=== PATIENT | female | born 1975 | race Caucasian/White ===

== ENCOUNTER → 2021-03-03 08:49 | Outpatient (BNVA) | payer MEDICAID, SELFPAY | PROVIDERS: PCP Nurse Practitioner; Visit Provider Nurse Practitioner Family | DX: Z12.11 Encounter for screening for malignant neoplasm of colon (principal); K59.01 Slow transit constipation; G40.909 Epilepsy, unspecified, not intractable, without status epilepticus | CPT/HCPCS: 99202 ==

== ENCOUNTER 2021-03-23 08:24 | Outpatient (REF) | payer MEDICAID, SELFPAY ==
--- NOTE | ~2021-03-23 | MM_ITS ---
EXAMINATION: MM SCREENING DIGITAL BREAST TOMOSYNTHESIS, BILATERAL CLINICAL INFORMATION: Screening. Asymptomatic. 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 The lifetime risk of breast cancer based on the Tyrer-Cuzick Model is 12%. COMPARISON: Mammography: 03/01/2020, 12/03/2018, 11/23/2018, 12/05/2017, 10/10/2016, 10/06/2015 TECHNIQUE: Digital breast tomosynthesis is performed in both the craniocaudal and mediolateral oblique views along with computer-aided detection (CAD). Synthesized 2D images are generated from the tomosynthesis. FINDINGS: There are scattered areas of fibroglandular density (ACR BI-RADS breast composition Category b). Breast tissue composition borders on heterogeneously dense. There are no significant masses, abnormal calcifications, or other abnormalities. Parenchymal pattern is similar to prior studies. There is a biopsy proven fibroadenoma again seen upper outer quadrant left breast. There are scattered bilateral parenchymal asymmetries. No developing density. The skin contours are smooth. MM/MM tomosynthesis screening BI IMPRESSION: No mammographic evidence of malignancy. ASSESSMENT: BI-RADS 2: Benign RECOMMENDATION: Routine annual mammography screening. This patient's information was entered into a reminder system with a target due date for their next mammogram.
== END 2021-03-23 08:25 | disposition home or self-care (01) ==
LOC: HO.MAMMO 08:24
PROVIDERS: Visit Provider Nurse Practitioner
DX: Z12.31 Encounter for screening mammogram for malignant neoplasm of breast (principal)
CPT/HCPCS: 77063; 77067

== ENCOUNTER 2021-04-25 06:31 | Day surgery (SDC) | payer MEDICAID, SELFPAY ==
[2021-04-20 10:28] VITALS: BMI 22.7
[2021-04-25 07:00] LABS: Urine Pregnancy NEGATIVE (NEGATIVE)
[2021-04-25 07:01] LABS: UPreg QC Valid YES
[2021-04-25 07:29] VITALS: BP 128/72; PULSE 72; RESP 20; TEMP 36.3; O2SAT 99
--- NOTE | 2021-04-25 08:28 | HO.ANESPROP2 ---
HPI - Anesthesia Eval Consult details Narrative: hx of seizures well controlled on keppra/lamictal - last dose this am [facility] Past Medical History Medical History Constipation Non-refractory epilepsy Vitamin D deficiency Family History Family History (Updated 03/03/21 @ 09:01 by Love Hernandez CMA) Father Heart muscle disorder caused by another medical condition Family history of problems with anesthesia: No Surgical History Surgical History History of appendectomy History of lumpectomy of right breast Hx of cholecystectomy History of Problems with Anesthesia: No Social History Social History (Updated 03/03/21 @ 09:02 by Love Hernandez CMA) Alcohol intake: never Patient Tobacco Use Status: Never used Tobacco Use of substances other than those prescribed or required for medical reasons: No Are you DNR?: No Advance Directives: No Advance Directives Information Provided: Yes Meds Allergies Allergy/AdvReac Type Severity Reaction Status Date / Time divalproex sodium AdvReac adverse Verified 03/02/21 12:02 reaction Home Medications Medication Instructions Recorded Confirmed Last Taken Type cholecalciferol (vitamin D3) 50 50 mcg PO DAILY 03/02/21 Unknown History mcg (2,000 unit) capsule diclofenac sodium 1 % topical gel 2 g TOPICAL QID 03/02/21 Unknown History (Voltaren Arthritis Pain) ibuprofen 200 mg tablet 200 mg PO Q6H PRN 03/02/21 Unknown History levetiracetam 250 mg tablet 250 mg PO BID 03/02/21 04/25/21 06:00 History (Keppra) multivitamin 1 tab PO DAILY 03/02/21 Unknown History polyethylene glycol 3350 17 17 g PO DAILY 03/02/21 Unknown History gram/dose oral powder (Miralax) lamotrigine 100 mg tablet 100 mg PO DAILY 03/03/21 04/25/21 06:00 History Exam Exam Date and Time: April 25, 2021 0828 Height,Weight and Vital Signs: Height 5 ft 7 in Weight 145 lb Last Vital Signs Temp 97.4 F 04/25/21 07:29 Pulse 72 04/25/21 07:29 Resp 20 04/25/21 07:29 BP 128/72 04/25/21 07:29 Pulse Ox 99 04/25/21 07:29 Pertinent Lab Results Pertinent Lab Results: Laboratory Tests 04/25/21 06:47 Urine Test NEGATIVE Assessment and Plan Assessment Anesthesia Assessment: Anesthesia Plan Discussed and Chart Reviewed Final Anesthetic Review Family History of Problems with Anesthesia: No History of Problems with Anesthesia: No NPO: Yes ASA Class: II Final Preanesthetic Review: No Changes in Pt Med Stat, Meds/Allgs Chart Reviewed, Consent Obtained/Reviewed and Anes Risks/Benef Reviewed Patient Risk: Low Procedure Risk: Low Anesthetic Plan Anesthetic Plan: MAC: Disposition: Standard PACU
[2021-04-25] MEDS: Lactated Ringers 1,000 ML 50 ML IVCONT (08:39)
--- NOTE | 2021-04-25 08:57 | MHC.SHP ---
Pre-Procedural Eval Section A Date of Service: 04/25/21 The patient is an INPATIENT: No The History & Physical has been completed within 30 days and I have reviewed it.: No Section B Chief Complaint: Screening Details of Present Illness: Colon cancer screening Relevant Family History (Specify if Yes): No Relevant Social History: None Present Medications: see Short Stay Collaborative assessment Medical History: Significant History (Constipation Non-refractory epilepsy Vitamin D deficiency) History of Previous Operations: Relevant previous surgery/procedure and date(s) (History of appendectomy History of lumpectomy of right breast Hx of cholecystectomy) Allergies: Allergies Allergy/AdvReac Type Severity Reaction Status Date / Time divalproex sodium AdvReac adverse Verified 03/02/21 12:02 reaction Review of Systems Sugical H&P ROS: Negative: Constitution, Cardiovascular and Respiratory and Yes, Specify: Gastrointestinal (constipation) Exam Surgical H&P Exam: Normal: Heart, Normal: Lungs, Normal: Extremities and Normal: Abdomen Plan Diagnosis/Plan: Unchanged I have reviewed the history and physical and performed a pertinent physical examination on my patient. No changes have occurred unless specified.
--- NOTE | 2021-04-25 09:37 | PM.OP ---
Brief Operative Note Date of Service: 04/25/21 Pre-op diagnosis: Colon cancer screening Post-op diagnosis: other (Colon polyp, anal wart) Procedure: COLONOSCOPY TILL CECUM WITH SNARE POLYPECTOMY AND HEMOCLIP PLACEMENT Consent: Indications for the procedure and potential complications of bleeding, perforation, reaction to medications and missed diagnosis were discussed with the patient and informed consent was obtained. Instrument: Olympus PCF H 190 L variable stiffness pediatric colonoscope Monitoring: Vital signs and clinical assessment, intermittent blood pressure monitoring, continuous EKG monitoring, Pulse oximetry and Carbon Dioxide monitoring were done throughout the procedure. Colon withdrawl time was 20 minutes. Procedure: The patient was placed in the left lateral decubitis position and pre-procedure medications were administered. After a digital rectal examination of the ano-rectum, the video colonoscope was inserted into the rectum and advanced through the colon to the cecum. The colonoscope was slowly withdrawn in a retrograde panoramic fashion and the colon mucosa was carefully examined including a retroflexed view of the rectum. Findings and interventions are described below. Procedure Difficulty: Without difficulty Findings: Terminal Ileum: Not evaluated Cecum: Normal Ascending Colon: Normal Transverse Colon: Normal Descending Colon: Normal Sigmoid Colon: A 2.0 to 2.5 cms sessile polyp at 20 cms removed with a hot snare and a hemoclip placed at polypectomy site. Rectum: Normal Ano-rectum: Perianal warts noted on inspection of the anus Colon preparation: Excellent Impression and Post Procedure Diagnosis: Colonoscopy Findings: One large polyp removed Perianal warts noted on inspection of the anus Plan: Await pathology results Patient has an appointment on 07/10/20 in the GI Clinic with Mela Bean FNP-BC . Repeat Colonoscopy interval based on path results - in 1 years if polyp is adenomatous and 10 years if polyps are hyperplastic. Above findings were reviewed with the patient and colon polyps and Genital Warts handouts were given in the discharge area. Patient will be referred to Dr Smith (general surgery) for management of Perianal warts Surgeon: Efraín Garcia MD Anesthesia: MAC (Joelle Saucedo CRNA) Was an Learning And Development Specialist used for this Procedure?: Yes Learning And Development Specialist: Anne Marie Gomez Estimated blood loss (mL): 0 Pathology: other (A. SIGMOID POLYP) Condition: stable Disposition: PACU
[2021-04-25 09:38] VITALS: BP 92/49; PULSE 66; RESP 12; TEMP 36.3; O2SAT 100
--- NOTE | 2021-04-25 09:41 | P.OP_ITS ---
Operative Note Operative Note Date of Service: 04/25/21 Narrative: Pre-op diagnosis:?Colon cancer screening Post-op diagnosis:?other (Colon polyp, anal wart) Procedure:? COLONOSCOPY TILL CECUM WITH SNARE POLYPECTOMY AND HEMOCLIP PLACEMENT Consent: Indications for the procedure and potential complications of bleeding, perforation, reaction to medications and missed diagnosis were discussed with the patient and informed consent was obtained. Instrument: Olympus PCF H 190 L variable stiffness pediatric colonoscope Monitoring: Vital signs and clinical assessment, intermittent blood pressure monitoring, continuous EKG monitoring, Pulse oximetry and Carbon Dioxide monitoring were done throughout the procedure. Colon withdrawl time was 20 minutes. Procedure: The patient was placed in the left lateral decubitis position and pre-procedure medications were administered. After a digital rectal examination of the ano-rectum, the video colonoscope was inserted into the rectum and advanced through the colon to the cecum. The colonoscope was slowly withdrawn in a retrograde panoramic fashion and the colon mucosa was carefully examined including a retroflexed view of the rectum. Findings and interventions are described below. Procedure Difficulty: Without difficulty Findings: Terminal Ileum: Not evaluated Cecum:? Normal Ascending Colon:? Normal Transverse Colon:? Normal Descending Colon:? Normal Sigmoid Colon:? A 2.0 to 2.5 cms sessile polyp at 20 cms removed with a hot snare and a hemoclip placed at polypectomy site. Rectum:? Normal Ano-rectum:? Perianal warts noted on inspection of the anus Colon preparation: Excellent ? Impression and Post Procedure Diagnosis: Colonoscopy Findings: One large polyp removed Perianal warts noted on inspection of the anus Plan: Await pathology results Patient has an appointment on 07/10/20 in the GI Clinic with Mela Bean FNP- . Repeat Colonoscopy interval based on path results - in 1 years if polyp is adenomatous and 10 years if polyps are hyperplastic. Above findings were reviewed with the patient and colon polyps and Genital Warts handouts were given in the discharge area. Patient will be referred to Dr Smith (general surgery) for management of Perianal warts Surgeon:?Efraín Garcia MD Anesthesia:?MAC (Joelle Saucedo CRNA) Was an Refinery Superintendent used for this Procedure?:?Yes Refinery Superintendent:?Anne Marie Gomez Estimated blood loss (mL):?0 Pathology:?other (A. SIGMOID POLYP) Condition:?stable Disposition:?PACU
[2021-04-25 09:54] VITALS: BP 101/56; PULSE 69; RESP 16; TEMP 36.3; O2SAT 100
== END 2021-04-25 10:25 | disposition home or self-care (01) ==
PROVIDERS: PCP Nurse Practitioner; Visit Provider Internal Medicine Gastroenterology
PROC: 0DJD8ZZ Inspection of Lower Intestinal Tract, Via Natural or Artificial Opening Endoscopic (ICD-10-PCS; CPT 45378; principal; 2021-04-25 08:30)
DX: Z12.11 Encounter for screening for malignant neoplasm of colon (principal); D12.5 Benign neoplasm of sigmoid colon; A63.0 Anogenital (venereal) warts; K59.01 Slow transit constipation; G40.909 Epilepsy, unspecified, not intractable, without status epilepticus; E55.9 Vitamin D deficiency, unspecified; Z79.899 Other long term (current) drug therapy; Z88.8 Allergy status to other drugs, medicaments and biological substances; Z90.49 Acquired absence of other specified parts of digestive tract
CPT/HCPCS: 45385; 81025; 88305

== ENCOUNTER → 2021-05-09 07:52 | Outpatient (BNVA) | payer MEDICAID, SELFPAY | PROVIDERS: PCP Nurse Practitioner; Referring Provider Nurse Practitioner; Visit Provider Nurse Practitioner Family | DX: K59.01 Slow transit constipation (principal); A63.0 Anogenital (venereal) warts; Z98.890 Other specified postprocedural states | CPT/HCPCS: 99212 ==

== ENCOUNTER → 2021-07-06 14:14 | Outpatient (BNVA) | payer MEDICAID, SELFPAY | PROVIDERS: PCP Nurse Practitioner; Referring Provider Nurse Practitioner Family; Visit Provider Surgery | DX: K62.9 Disease of anus and rectum, unspecified (principal) | CPT/HCPCS: 46600; 99202 ==

== ENCOUNTER 2021-08-08 07:46 | Day surgery (SDC) | payer MEDICAID, SELFPAY ==
[2021-08-03 10:27] VITALS: BMI 22.6
[2021-08-08] VITALS (7 sets, daily range): BP systolic 116–139; BP diastolic 67–80; PULSE 62–101; RESP 12–16; TEMP 36.2–36.3; O2SAT 98–100
[2021-08-08 08:15] LABS: UPreg QC Valid YES; Urine Pregnancy NEGATIVE (NEGATIVE)
[2021-08-08] MEDS: Lactated Ringers 1,000 ML 50 ML IVCONT (08:32)
--- NOTE | 2021-08-08 08:39 | P.CONAN_ITS ---
FORM[facility]LY [facility] Active Problems Active Problems: All Active Problems (Updated 08/03/21 @ 10:27 by Lamar Leong RN) Perianal wart (Acute) Anal lesion (Acute) Past Medical History Medical History Anal lesion Constipation COVID-19 vaccine series completed Non-refractory epilepsy Vitamin D deficiency Family History Family History Father Heart muscle disorder caused by another medical condition Family history of problems with anesthesia: No Surgical History Surgical History History of appendectomy History of lumpectomy of right breast Hx of cholecystectomy Hx of colonoscopy History of Problems with Anesthesia: No Social History Social History Alcohol intake: never Patient Tobacco Use Status: Never used Tobacco Use of substances other than those prescribed or required for medical reasons: No Have you been hit, kicked, punched, or otherwise hurt by someone within the past year? If so, by whom?: No Are you DNR?: No Advance Directives: No Advance Directives Information Provided: Yes (brochure mailed) Advance Directives on File: No Recently lost weight without trying: No Eating poorly because of decreased appetite: No Nutrition Risks: No Nutritional Risk Meds Allergies Allergy/AdvReac Type Severity Reaction Status Date / Time divalproex sodium AdvReac adverse Verified 07/06/21 14:35 reaction Home Medications Medication Instructions Recorded Confirmed Last Taken Type cholecalciferol (vitamin D3) 50 50 mcg PO DAILY 03/02/21 08/03/21 Unknown History mcg (2,000 unit) capsule diclofenac sodium 1 % topical gel 2 g TOPICAL QID 03/02/21 08/03/21 Unknown History (Voltaren Arthritis Pain) ibuprofen 200 mg tablet 200 mg PO Q6H PRN 03/02/21 08/03/21 Unknown History levetiracetam 250 mg tablet 250 mg PO BID 03/02/21 08/03/21 08/08/21 History (Keppra) multivitamin 1 tab PO DAILY 03/02/21 08/03/21 Unknown History lamotrigine 100 mg tablet 100 mg PO DAILY 03/03/21 08/03/21 08/08/21 History Exam Exam Date and Time: August 08, 2021 0839 Height,Weight and Vital Signs: Height 5 ft 7 in Weight 65.487 kg Last Vital Signs Temp 97.4 F 08/08/21 08:14 Pulse 80 08/08/21 08:14 Resp 16 08/08/21 08:14 BP 123/79 08/08/21 08:14 Pulse Ox 98 08/08/21 08:14 Pertinent Lab Results Pertinent Lab Results: Laboratory Tests 08/08/21 07:56 Urine Test NEGATIVE Airway Mallampati Class: II TM Dist: >3cm Neck ROM: Full Loose/Missing/Broken Teeth: No Heart: RRR Lungs: CTA Assessment and Plan Assessment Anesthesia Assessment: Anesthesia Plan Discussed and Chart Reviewed Final Anesthetic Review Family History of Problems with Anesthesia: No History of Problems with Anesthesia: No NPO: Yes ASA Class: II Final Preanesthetic Review: Meds/Allgs Chart Reviewed, Consent Obtained/Reviewed and Anes Risks/Benef Reviewed Patient Risk: Low Procedure Risk: Intermediate Anesthetic Plan Anesthetic Plan: GA Disposition: Standard PACU
--- NOTE | 2021-08-08 09:35 | P.OP_ITS ---
Operative Note Operative Note Date of Service: 08/08/21 Narrative: Preop diagnosis: Anal lesion Postop diagnosis: anal lesion Procedure: Exam under anesthesia, excision of anal lesion Surgeon: Elvin Smith MD The patient is a 46-year-old female was referred to me because of an anal lesion. She she was seen in the office as was noted have a polyp polypoid, lobulated, verrucous looking lesion, about 1.5 cm, just proximal to the anal verge. I explained to her the technique of anesthesia, and excision of this lesion. She understood the risks, benefits, and alternatives and had agreed to proceed She was brought the operating room. She was placed in prone michele-knife po sition. The buttocks were retracted with wide tape laterally. The perianal area was prepped and draped in the usual sterile fashion. A surgical time-out was done. The patient received Cefotan 2 g IV preoperatively . Examination of the anal orifice revealed the lesion on the left side just proximal to the anal verge has described above. I infiltrated this area with lidocaine 1%. I inserted a Jayce Awad retractor. I examined the anal canal circumferentially. There were no lesions in the anal canal. There was no fissure or any induration. There was no bleeding. I gently applied a Mcneal grasper on the lesion at the left anal verge. I applied a [id number] stitch proximal to this in the anal canal using a chromic 3-0. I made an incision around this lesion using blade 15. All the way to the perianal skin. Excise this lesion along this incision above the plane of sphincters using scissors. This was sent as a specimen. I closed the incision with a running chromic 3-0 stitch with additional hemostatic sutures placed Once hemostasis was ensured, I infiltrated the perianal area with Marcaine 0.5% for postop analgesia. The procedure was then completed. The patient tolerated the procedure well. There were no complications noted. Initial and final counts of sponges instruments were correct. Estimated blood loss about 10 cc . The patient was then extubated and transferred to the recovery room with stable vital signs.
== END 2021-08-08 11:30 | disposition home or self-care (01) ==
PROVIDERS: PCP Nurse Practitioner; Visit Provider Surgery
PROC: (CPT 46922; principal; 2021-08-08 09:30)
DX: D01.3 Carcinoma in situ of anus and anal canal (principal); G40.802 Other epilepsy, not intractable, without status epilepticus; K59.00 Constipation, unspecified; E55.9 Vitamin D deficiency, unspecified; Z79.899 Other long term (current) drug therapy; Z88.8 Allergy status to other drugs, medicaments and biological substances; Z90.49 Acquired absence of other specified parts of digestive tract; Z98.890 Other specified postprocedural states
CPT/HCPCS: 46922; 81025; 88305; 88342; 88360; J1100; J1885; J2250; J2405; J3010

== ENCOUNTER → 2021-08-21 11:36 | Outpatient (BNVA) | payer MEDICAID, SELFPAY | PROVIDERS: PCP Nurse Practitioner; Referring Provider Nurse Practitioner; Visit Provider Surgery | DX: Z48.815 Encounter for surgical aftercare following surgery on the digestive system (principal); Z87.19 Personal history of other diseases of the digestive system | CPT/HCPCS: 99212 ==

== ENCOUNTER → 2021-11-07 08:21 | Outpatient (BNVA) | payer MEDICAID, SELFPAY | PROVIDERS: PCP Nurse Practitioner; Referring Provider Nurse Practitioner; Visit Provider Nurse Practitioner Family | DX: K59.01 Slow transit constipation (principal) | CPT/HCPCS: 99212 ==

== ENCOUNTER → 2022-02-19 12:48 | Outpatient (BNVA) | payer MEDICAID, SELFPAY | PROVIDERS: PCP Nurse Practitioner; Visit Provider Surgery | DX: D01.3 Carcinoma in situ of anus and anal canal (principal) | CPT/HCPCS: 46600; 99212 ==

== ENCOUNTER 2022-03-29 08:10 | Outpatient (REF) | payer MEDICAID, SELFPAY ==
--- NOTE | ~2022-03-29 | MM_ITS ---
EXAMINATION: MM SCREENING DIGITAL BREAST TOMOSYNTHESIS, BILATERAL CLINICAL INFORMATION: Screening. Asymptomatic. The lifetime risk of breast cancer based on the Tyrer-Cuzick Model is 13.2%. COMPARISON: Mammography: March 23, 2021 and studies dating back to October 06, 2015 TECHNIQUE: Digital breast tomosynthesis is performed in both the craniocaudal and mediolateral oblique views along with computer-aided detection (CAD). Synthesized 2D images are generated from the tomosynthesis. FINDINGS: There are scattered areas of fibroglandular density (ACR BI-RADS breast composition Category b). There are no significant masses, abnormal calcifications, or other abnormalities. MM/MM tomosynthesis screening BI IMPRESSION: No significant changes from prior exam. ASSESSMENT: BI-RADS 1: Negative RECOMMENDATION: Routine annual mammography screening. This patient's information was entered into a reminder system with a target due date for their next mammogram.
== END 2022-03-29 08:11 | disposition home or self-care (01) ==
LOC: HO.MAMMO 08:10
PROVIDERS: PCP Nurse Practitioner; Visit Provider Nurse Practitioner
DX: Z12.31 Encounter for screening mammogram for malignant neoplasm of breast (principal)
CPT/HCPCS: 77063; 77067

== ENCOUNTER → 2022-08-20 14:02 | Outpatient (BNVA) | payer MEDICAID, SELFPAY | PROVIDERS: Visit Provider Surgery | DX: D01.3 Carcinoma in situ of anus and anal canal (principal) | CPT/HCPCS: 46600; 99212 ==

== ENCOUNTER 2022-11-29 08:16 | Outpatient (AMB) | payer MEDICAID, SELFPAY ==
--- NOTE | 2022-11-29 08:23 | A.OFFVIS_ITS ---
Intake Vital Signs 11/29/22 08:24 Height 5 ft 7 in Weight 142 lb 13.753 oz BMI 22.4 BP 131/71 Blood Pressure Location Lt brachial Position Sitting Pulse 76 Intake Visit Reasons: 1 Year Follow Up Intake Note: Ria presents in office as a est.patient for a 1year f/u for constipation PT CC: pt reports having ULQP pt denies any other GI Issues Financial Planning Advisor Required: No Accompanied by: Self / Same As Patient Allergies divalproex sodium Adverse Reaction (Verified 11/29/22 08:23) adverse reaction HPI 1 Year Follow Up HPI Details LAST VISIT: Constipation Patient no longer is constipated. Patient reports that she changed her diet and is doing much better now. Stop taking Senokot she does not need any medication to help her move her bowels at this point. All diet controlled. Patient denies any other GI concerning symptoms. I will see her in 1 year to re-evaluate. Patient has been followed by General surgery after removal of perianal wart. Patient is agreeable to this plan and verbalizes understanding of instructions. She was given the opportunity to ask questions all questions answered. TODAY'S VISIT: Patient is here today for follow-up and to discuss going for colonoscopy. Last colonoscopy showed large two tubular adenomas. Patient denies any melena, hematochezia, unintentional weight loss or ribbon like stools. Patient has a history of seizures, however last seizure about 6 years ago. Patient is on lamotrigine and Keppra. Patient denies any cardiac or respiratory symptoms. Not on any anticoagulation medication. No history of sleep apnea. Did very well with anesthesia last procedure. No issues with prep. ? PFSH Medical History AIN grade III Anal lesion Constipation COVID-19 vaccine series completed Non-refractory epilepsy Vitamin D deficiency Surgical History History of appendectomy History of lumpectomy of right breast History of surgical removal of lesion Hx of cholecystectomy Hx of colonoscopy Family History Father Heart muscle disorder caused by another medical condition Social History Alcohol intake: never Patient Tobacco Use Status: Never used Tobacco Review of Systems Const Denies weight gain and Denies weight loss ENT Reports no additional complaints, Denies dysphagia and Denies odynophagia Card Reports no additional complaints Resp Reports no additional complaints GI Denies abdominal pain, Denies belching, Denies melena, Denies bloating, Denies change in bowel habits, Denies dysphagia, Denies excessive flatus, Denies dyspepsia, Denies heartburn, Denies diarrhea, Denies loose stools, Denies nausea, Denies odynophagia and Denies vomiting Musc Reports no additional complaints Neuro Reports no additional complaints Psych Reports no additional complaints Endo Reports no additional complaints Physical Exam Vital Signs: Last Vital Signs Pulse 76 11/29/22 08:24 BP 131/71 11/29/22 08:24 BMI result Body Mass Index 22.4 Const General: healthy appearing, no acute distress and well developed Nutritional Appearance: well nourished Orientation/consciousness: patient oriented x3 HEENT Head: Yes normal to inspection, Yes normocephalic and Yes atraumatic Face and sinus: Yes normal facial exam Mouth: Normal oral and palatal mucosa present Throat: Yes posterior oropharynx normal, Yes tonsils normal and Yes uvula midline Eyes General: appearance normal, both eyes and all related structures Neck Neck: Yes normal visual inspection, Yes full ROM and Yes trachea midline Thyroid: Thyroid normal Resp Effort & Inspection: normal respiratory effort, able to speak in complete sentences, no tracheal deviation and symmetric chest movement Auscultation: clear to auscultation bilaterally Cardio Rate: regular rate Heart sounds: S1 normal heart sound present and S2 normal heart sound present GI Inspection: Yes normal to inspection and No distended Palpation (GI): Soft to palpation, not firm, nontender and No hepatosplenomegaly present Auscultation: normal bowel sounds General: Yes no CVA tenderness Back/Spine/Pelvis Back: no CVA tenderness Skin General skin exam: elasticity normal, turgor normal and dry skin Neuro General: patient oriented x3 Psych Appearance: grossly normal Mental Status: mental status grossly normal Speech and movement: Normal speech and movement present Affect: normal affect Thought process: Normal thought process present Assessment & Plan Assessment & Plan (1) Constipation: Code(s): K59.00 - Constipation, unspecified Qualifiers: Constipation type: slow transit constipation Qualified Code(s): K59.01 - Slow transit constipation Plan: Patient change her diet and is moving her bowels without any issues. Continue drinking plenty fluids, increase activity to promote a bowel movement. (2) Screen for colon cancer: Code(s): Z12.11 - Encounter for screening for malignant neoplasm of colon Plan: History of tubular adenoma on colonoscopy in May of 2021. Patient denies any melena, hematochezia, unintentional weight loss stools patient denies any history of sleep apnea. Not on any anticoagulation medication. Patient denies any cardiac or respiratory symptoms. No seizures. Last seizure was in 2016. Patient is taking lamotrigine and Keppra. Please make sure that patient is taking her seizure medication today of the procedure. Discussed with patient the importance of good bowel prep and clear liquid diet day before procedure. What to expect before during and after procedure discussed with patient. I will see her after the procedure, sooner on as needed basis. Patient is agreeable to this plan and verbalizes understanding of instructions. She was given the opportunity to ask questions all questions answered. Thank you for allowing me to participate in her care Medications: New bisacodyl (Dulcolax (bisacodyl)) take 2 tabs at noon the day before your colonoscopy 10 mg (2 x 5 mg) PO ONCE 2 tabs 0RF 1 day Z12.11 - Encounter for screening for malignant neoplasm of colon polyethylene glycol 3350 (Miralax) As directed by gastroenterology department at [facility] 238 grams PO ONCE 238 grams 0RF Z12.11 - Encounter for screening for malignant neoplasm of colon Coding Level of Care Code Est Pt Level 3 (05301) Diagnoses Constipation K59.01 Constipation type: slow transit constipation Screen for colon cancer Z12.11 Time Spent (min) 30 Comment 20 minutes spent with patient and additional 10 minutes spent reviewing her records
[2022-11-29 08:24] VITALS: BP 131/71; PULSE 76; BMI 22.4
== END 2022-11-29 09:49 | disposition home or self-care (01) ==
PROVIDERS: Visit Provider Nurse Practitioner Family
DX: K59.01 Slow transit constipation (principal); Z12.11 Encounter for screening for malignant neoplasm of colon
CPT/HCPCS: 99213

== ENCOUNTER → 2022-11-29 08:16 | Outpatient (BNVA) | payer MEDICAID, SELFPAY | PROVIDERS: Visit Provider Nurse Practitioner Family | DX: Z12.11 Encounter for screening for malignant neoplasm of colon (principal); K59.01 Slow transit constipation | CPT/HCPCS: 99213 ==

== ENCOUNTER 2023-01-28 12:43 | Outpatient (REF) | payer MEDICAID, SELFPAY ==
[2023-01-28 15:56] LABS: MANUAL DIFF FLAG NO
[2023-01-28 16:07] LABS: Basophils Percent Auto 0.6 % (0-2); Eosinophils Absolute Auto 0.1 X10*3/uL (0.0-0.4); Eosinophils Percent Auto 1.3 % (0-4); Hematocrit 34.1 % (37.0-47.0); Hemoglobin 10.5 g/dl (12.0-16.0); Imm Gran Abs Auto 0.02 X10*3/uL (0.00-0.03); Imm Gran Pct Auto 0.3 % (0.0-0.4); Lymphocytes Percent Auto 13.8 % (20-40); Mean Corpuscular HGB Conc 30.8 g/dl (31.0-35.0); Mean Corpuscular Volume 77.9 fL (80.0-98.0); Mean Platelet Volume 11.4 fL (9.4-12.3); Monocytes Absolute Auto 0.4 X10*3/uL (0.1-1.2); Neutrophils Absolute Auto 5.6 x10*3/uL (2.0-8.3); Platelet Count 287 X10*3/uL (160-400); Red Blood Count 4.38 X10*6/uL (4.20-5.50); Red Cell Distribution Width 14.9 % (11.0-16.0); White Blood Count 7.2 X10*3/uL (4.8-10.8)
[2023-01-28 16:13] LABS: Estimated Average Glucose 108 mg/dL; Hemoglobin A1c % 5.4 % (<6.0)
[2023-01-28 16:33] LABS: Alanine Aminotransferase 8 U/L (0-31); Albumin Level 4.1 g/dL (3.5-5.0); Alkaline Phosphatase 49 U/L (39-117); Anion Gap 9 (12-20); Aspartate Amino Transferase 11 U/L (5-31); Bilirubin Total 0.8 mg/dL (0.0-1.0); Blood Urea Nitrogen 11 mg/dL (9-16); Calcium 9.6 mg/dL (8.4-10.2); Carbon Dioxide 24 mmol/L (22-29); Chloride 109 mmol/L (96-108); Cholesterol 158 mg/dL (<200); Estimated Glomerular Filt Rate > 60; Glucose Random 95 mg/dL (60-115); HDL Cholesterol 46 mg/dL (>40); LDL Cholesterol Calculated 97 mg/dL (<100); Potassium 3.8 mmol/L (3.3-5.1); Sodium 138 mmol/L (135-145); Total Protein 7.5 g/dL (6.5-8.0); Triglycerides 79 mg/dL (<150)
[2023-01-28 16:50] LABS: TSH reflex Free T4 1.35 uIU/mL (0.32-4.0); Vitamin D 25-OH Total 32.8 ng/mL (>30)
[2023-01-28 18:48] LABS: CT PCR NOT DETECTED (Not Detect.); NG PCR NOT DETECTED (Not Detect.)
[2023-01-29 04:16] LABS: Syphilis Screen Nonreactive (Nonreactive)
[2023-01-29 04:21] LABS: ~HepC Num1 0.24 S/CO (0.00-0.79); ~Hepatitis C Antibody Nonreactive (Nonreactive)
[2023-01-29 04:30] LABS: HBS Num1 0.96 mIU/mL (0-7.99); HBc Num1 0.15 S/CO (0.00-0.79); HBsAGNum1 0.41 S/CO (0.00-0.99); HIV AB/AG Nonreactive (Nonreactive); HIV Num 1 0.07 S/CO (0.00-0.99); Hepatitis B Core Antibody Nonreactive (Nonreactive); Hepatitis B Surface Antigen Negative (Negative); ~Hepatitis B Surface Antibody NONREACTIVE (Nonreactive)
[2023-01-29 11:40] LABS: Iron 37 mcg/dL (30-160); Percent Iron Saturation 9 % (15-50); Total Iron Binding Capacity 395 mcg/dL (228-428); Unsaturated Iron Binding 358 ug/dL
[2023-01-29 11:59] LABS: Ferritin 7 ng/mL (10-250)
[2023-01-29 12:12] LABS: Folate 11.1 ng/mL (> or = 4.0); Vitamin B12 424 pg/mL (200-900)
== END 2023-01-28 12:44 | disposition home or self-care (01) ==
LOC: HO.HHCL 12:43
PROVIDERS: Visit Provider Student in an Organized Health Care Education/Training Program
DX: Z00.00 Encounter for general adult medical examination without abnormal findings (principal); D64.9 Anemia, unspecified
CPT/HCPCS: 0353U; 80053; 80061; 82306; 82607; 82728; 82746; 83036; 83540; 84443; 85025; 86704; 86706; 86780; 86803; 87340; 87389

== ENCOUNTER 2023-02-01 10:46 | Day surgery (SDC) | payer MEDICAID, SELFPAY ==
[2023-01-30 14:29] VITALS: BMI 22.2
[2023-02-01 11:59] VITALS: BP 114/95; PULSE 84; RESP 16; TEMP 36.4; O2SAT 100; BMI 22.6
--- NOTE | 2023-02-01 12:12 | MHC.SHP ---
Documented by User: Efraín Garcia MD 02/01/23 16:21 Pre-Procedural Eval Section A Date of Service: 02/01/23 The patient is an INPATIENT: No The History & Physical has been completed within 30 days and I have reviewed it.: No Section B Chief Complaint: Benign neoplasm of colon, unspecified Relevant Family History (Specify if Yes): No Relevant Social History: None Present Medications: see Short Stay Collaborative assessment Medical History: Significant History (AIN grade III Anal lesion Constipation COVID-19 vaccine series completed Non-refractory epilepsy Vitamin D deficiency) History of Previous Operations: Relevant previous surgery/procedure and date(s) (History of appendectomy History of lumpectomy of right breast History of surgical removal of lesion Hx of cholecystectomy Hx of colonoscopy) Allergies: Allergies Allergy/AdvReac Type Severity Reaction Status Date / Time divalproex sodium AdvReac Unknown Verified 02/01/23 11:44 Review of Systems Sugical H&P ROS: Negative: Constitution, Cardiovascular, Respiratory and Gastrointestinal Exam Surgical H&P Exam: Normal: Heart, Normal: Lungs, Normal: Extremities and Normal: Abdomen Plan Diagnosis/Plan: Unchanged I have reviewed the history and physical and performed a pertinent physical examination on my patient. No changes have occurred unless specified. Time Spent With Patient Time: Total time managing care of this patient today ____ minutes. Documented by User: Maryse Hernandez MD 02/01/23 12:34 Pre-Procedural Eval Section A Date of Service: 02/01/23 Section B Chief Complaint: Benign neoplasm of colon, unspecified
[2023-02-01] MEDS: Lactated Ringers 1,000 ML 50 ML IVCONT (12:14)
--- NOTE | 2023-02-01 12:20 | HO.ANESPROP2 ---
HPI - Anesthesia Eval Consult details Narrative: for colon screen [facility] Active Problems Active Problems: All Active Problems (Updated 02/19/22 @ 13:04 by Elvin Smith MD) Perianal wart (Acute) AIN grade III (Acute) Anal lesion (Acute) Past Medical History Medical History AIN grade III Anal lesion Constipation COVID-19 vaccine series completed Non-refractory epilepsy Vitamin D deficiency Family History Family History Father Heart muscle disorder caused by another medical condition Family history of problems with anesthesia: No Surgical History Surgical History History of appendectomy History of lumpectomy of right breast History of surgical removal of lesion Hx of cholecystectomy Hx of colonoscopy Tubal ligation status History of Problems with Anesthesia: No Social History Social History Alcohol intake: never Patient Tobacco Use Status: Never used Tobacco Use of substances other than those prescribed or required for medical reasons: No Are you DNR?: No Advance Directives: No Advance Directives Information Provided: Yes Meds Allergies Allergy/AdvReac Type Severity Reaction Status Date / Time divalproex sodium AdvReac Unknown Verified 02/01/23 11:44 Active Medications: Current Medications Lactated Ringer's (Lr) 1,000 mls @ 50 mls/hr IVCONT .Q20H NIURKA Last Admin: 02/01/23 12:14 Dose: 50 mls/hr Home Medications Medication Instructions Recorded Confirmed Last Taken Type cholecalciferol (vitamin D3) 50 50 mcg PO DAILY 03/02/21 02/01/23 Unknown History mcg (2,000 unit) capsule ibuprofen 200 mg tablet 200 mg PO Q6H PRN Pain 03/02/21 02/01/23 12/01/22 History levetiracetam 250 mg tablet 250 mg PO BID 03/02/21 02/01/23 02/01/23 History (Keppra) multivitamin 1 tab PO DAILY 03/02/21 02/01/23 Unknown History lamotrigine 100 mg tablet 100 mg PO DAILY 03/03/21 02/01/23 02/01/23 History Exam Exam Date and Time: February 01, 2023 1220 Height,Weight and Vital Signs: Height 5 ft 7 in Weight 65.317 kg Last Vital Signs Temp 97.5 F 02/01/23 11:59 Pulse 84 02/01/23 11:59 Resp 16 02/01/23 11:59 BP 114/95 H 02/01/23 11:59 Pulse Ox 100 02/01/23 11:59 O2 Del Method Room Air 02/01/23 11:59 Airway Mallampati Class: II Neck ROM: Full Heart: rrr Lungs: cta Assessment and Plan Assessment Anesthesia Assessment: Anesthesia Plan Discussed and Chart Reviewed Final Anesthetic Review Family History of Problems with Anesthesia: No History of Problems with Anesthesia: No NPO: Yes ASA Class: II Final Preanesthetic Review: No Changes in Pt Med Stat, Meds/Allgs Chart Reviewed, Consent Obtained/Reviewed and Anes Risks/Benef Reviewed Patient Risk: Low Procedure Risk: Low Anesthetic Plan Anesthetic Plan: MAC: Disposition: Standard PACU
--- NOTE | 2023-02-01 12:34 | HO.ANESPROP2 ---
[facility] Active Problems Active Problems: All Active Problems (Updated 02/19/22 @ 13:04 by Elvin Smith MD) Perianal wart (Acute) AIN grade III (Acute) Anal lesion (Acute) Past Medical History Medical History AIN grade III Anal lesion Constipation COVID-19 vaccine series completed Non-refractory epilepsy Vitamin D deficiency Family History Family History Father Heart muscle disorder caused by another medical condition Family history of problems with anesthesia: No Surgical History Surgical History History of appendectomy History of lumpectomy of right breast History of surgical removal of lesion Hx of cholecystectomy Hx of colonoscopy Tubal ligation status History of Problems with Anesthesia: No Social History Social History Alcohol intake: never Patient Tobacco Use Status: Never used Tobacco Use of substances other than those prescribed or required for medical reasons: No Are you DNR?: No Advance Directives: No Advance Directives Information Provided: Yes Meds Allergies Allergy/AdvReac Type Severity Reaction Status Date / Time divalproex sodium AdvReac Unknown Verified 02/01/23 11:44 Active Medications: Current Medications Lactated Ringer's (Lr) 1,000 mls @ 50 mls/hr IVCONT .Q20H NIURKA Last Admin: 02/01/23 12:14 Dose: 50 mls/hr Home Medications Medication Instructions Recorded Confirmed Last Taken Type cholecalciferol (vitamin D3) 50 50 mcg PO DAILY 03/02/21 02/01/23 Unknown History mcg (2,000 unit) capsule ibuprofen 200 mg tablet 200 mg PO Q6H PRN Pain 03/02/21 02/01/23 12/01/22 History levetiracetam 250 mg tablet 250 mg PO BID 03/02/21 02/01/23 02/01/23 History (Keppra) multivitamin 1 tab PO DAILY 03/02/21 02/01/23 Unknown History lamotrigine 100 mg tablet 100 mg PO DAILY 03/03/21 02/01/23 02/01/23 History Exam Exam Date and Time: February 01, 2023 1234 Height,Weight and Vital Signs: Height 5 ft 7 in Weight 65.317 kg Last Vital Signs Temp 97.5 F 02/01/23 11:59 Pulse 84 02/01/23 11:59 Resp 16 02/01/23 11:59 BP 114/95 H 02/01/23 11:59 Pulse Ox 100 02/01/23 11:59 O2 Del Method Room Air 02/01/23 11:59 Airway Mallampati Class: II TM Dist: >3cm Neck ROM: Full Heart: rrr Lungs: cta Assessment and Plan Assessment Anesthesia Assessment: Anesthesia Plan Discussed and Chart Reviewed Final Anesthetic Review Family History of Problems with Anesthesia: No History of Problems with Anesthesia: No NPO: Yes ASA Class: II Final Preanesthetic Review: No Changes in Pt Med Stat, Meds/Allgs Chart Reviewed and Consent Obtained/Reviewed Patient Risk: Intermediate Procedure Risk: Intermediate Anesthetic Plan Anesthetic Plan: MAC: Disposition: Standard PACU
--- NOTE | 2023-02-01 13:38 | W.PM.OPN ---
Operative Note Operative Note Date of Service: 02/01/23 Narrative: COLONOSCOPY TILL CECUM Pre-op diagnosis: Surveillance for colon polyps Post-op diagnosis:? Diverticulosis, hemorrhoids Endoscopist:? Efraín Garcia MD Anesthesia:?MAC Consent: Indications for the procedure and potential complications of bleeding, perforation, reaction to medications and missed diagnosis were discussed with the patient and informed consent was obtained. Instrument: Olympus PCF H 190 L variable stiffness pediatric colonoscope Monitoring: Vital signs and clinical assessment, intermittent blood pressure monitoring, continuous EKG monitoring, Pulse oximetry and Carbon Dioxide monitoring were done throughout the procedure. Please see anesthesia flowsheet. Colon withdrawl time was 13 minutes. Procedure: The patient was placed in the left lateral decubitis position and pre-procedure medications were administered. After a digital rectal examination of the ano-rectum, the video colonoscope was inserted into the rectum and advanced through the colon to the cecum. The colonoscope was slowly withdrawn in a retrograde panoramic fashion and the colon mucosa was carefully examined including a retroflexed view of the rectum. Findings and interventions are described below. Procedure Difficulty: Colon was long and there was some loop formation Findings: Terminal Ileum: Not evaluated Cecum: Normal Ascending Colon: Normal Transverse Colon: Normal Descending Colon: Normal Sigmoid Colon: No recurrent or residual polyp noted at 20 cms. Moderate diverticulosis Rectum: Normal Ano-rectum: Moderate internal hemorrhoids Colon preparation: Excellent Impression and Post Procedure Diagnosis: Colonoscopy Findings: No polyps were detected Moderate diverticulosis seen in the sigmoid colon Moderate hemorrhoids on retroflexed exam. Plan: Patient has an appointment on 02/13/23 in the GI Clinic with Mela Bean FNP-BC . Repeat Colonoscopy in 5 years due to a history of adenomatous colon polyps. Above findings were reviewed with the patient and diverticulosis handout was given in the discharge area
[2023-02-01 14:09] VITALS: BP 101/60; PULSE 61; RESP 12; TEMP 36.6; O2SAT 100
[2023-02-01 14:24] VITALS: BP 108/66; PULSE 75; RESP 16; O2SAT 100
[2023-02-01 14:38] VITALS: BP 115/71; PULSE 61; RESP 18; TEMP 36.7; O2SAT 100
== END 2023-02-01 15:05 | disposition home or self-care (01) ==
PROVIDERS: PCP Student in an Organized Health Care Education/Training Program; Visit Provider Internal Medicine Gastroenterology
PROC: 0DJD8ZZ Inspection of Lower Intestinal Tract, Via Natural or Artificial Opening Endoscopic (ICD-10-PCS; CPT 45378; principal; 2023-02-01 12:50)
DX: Z12.11 Encounter for screening for malignant neoplasm of colon (principal); K57.30 Diverticulosis of large intestine without perforation or abscess without bleeding; K64.8 Other hemorrhoids; Z86.010 Personal history of colon polyps; K59.00 Constipation, unspecified; G40.909 Epilepsy, unspecified, not intractable, without status epilepticus; Z79.899 Other long term (current) drug therapy
CPT/HCPCS: 45378

== ENCOUNTER → 2023-02-01 10:46 | Outpatient (BNV) | payer MEDICAID, SELFPAY | PROVIDERS: PCP Student in an Organized Health Care Education/Training Program; Visit Provider Internal Medicine Gastroenterology | DX: Z12.11 Encounter for screening for malignant neoplasm of colon (principal); K57.30 Diverticulosis of large intestine without perforation or abscess without bleeding; K64.8 Other hemorrhoids | CPT/HCPCS: 45378 ==

== ENCOUNTER 2023-02-13 09:09 | Outpatient (AMB) | payer MEDICAID, SELFPAY ==
--- NOTE | 2023-02-13 09:22 | A.OFFVIS_ITS ---
Intake Vital Signs 02/13/23 09:26 Height 5 ft 7 in Weight 144 lb BMI 22.6 BP 127/74 Blood Pressure Location Lt brachial Position Sitting Pulse 93 Intake Visit Reasons: s/p colon-Jose Intake Note: Patient follow up for Colonoscopy results. Patient denies any GI issues. 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 Continue drinking plenty fluids, increase activity to promote a bowel movement. Screen for colon cancer History of tubular adenoma on colonoscopy in May of 2021. Patient denies any melena, hematochezia, unintentional weight loss stools patient denies any history of sleep apnea. Not on any anticoagulation medication. Patient denies any cardiac or respiratory symptoms. No seizures. Last seizure was in 2016. Patient is taking lamotrigine and Keppra. Please make sure that patient is taking her seizure medication today of the procedure. Discussed with patient the importance of good bowel prep and clear liquid diet day before procedure. What to expect before during and after procedure discussed with patient. I will see her after the procedure, sooner on as needed basis. Patient is agreeable to this plan and verbalizes understanding of instructions. She was given the opportunity to ask questions all questions answered. COLONOSCOPY: Findings: Terminal Ileum: Not evaluated Cecum: Normal Ascending Colon: Normal Transverse Colon: Normal Descending Colon: Normal Sigmoid Colon: No recurrent or residual polyp noted at 20 cms. Moderate diverticulosis Rectum: Normal Ano-rectum: Moderate internal hemorrhoids Colon preparation: Excellent Impression and Post Procedure Diagnosis: Colonoscopy Findings: No polyps were detected Moderate diverticulosis seen in the sigmoid colon Moderate hemorrhoids on retroflexed exam. Plan: Repeat Colonoscopy in 5 years due to a history of adenomatous colon polyps. TODAY'S VISIT Patient is here today for follow-up and to discuss colonoscopy results. No polyps found. Moderate diverticulosis to sigmoid colon. Patient denies any ill effects from the prep, anesthesia or procedure itself. Patient denies any GI concerning symptoms. Patient reports that she is moving her bowels better now that she is taking MiraLax daily. Patient denies melena, hematochezia, unintentional weight loss or ribbon like stools. Patient denies dyspepsia, dysphagia or odynophagia ? [facility] Medical History (Updated 02/13/23 @ 10:08 by Mela Bean, [facility]) Diverticulosis AIN grade III COVID-19 vaccine series completed Anal lesion Constipation Vitamin D deficiency Non-refractory epilepsy Surgical History Tubal ligation status History of surgical removal of lesion Hx of colonoscopy History of lumpectomy of right breast History of appendectomy Hx of cholecystectomy Family History Father Heart muscle disorder caused by another medical condition Social History Alcohol intake: never Patient Tobacco Use Status: Never used Tobacco Review of Systems Const Denies weight gain and Denies weight loss ENT Reports no additional complaints, Denies dysphagia and Denies odynophagia Card Reports no additional complaints Resp Reports no additional complaints GI Denies abdominal pain, Denies belching, Denies melena, Denies bloating, Denies change in bowel habits, Denies dysphagia, Denies excessive flatus, Denies dyspepsia, Denies heartburn, Denies diarrhea, Denies loose stools, Denies nausea, Denies odynophagia and Denies vomiting Musc Reports no additional complaints Neuro Reports no additional complaints Psych Reports no additional complaints Endo Reports no additional complaints Physical Exam Vital Signs: Last Vital Signs Pulse 93 02/13/23 09:26 BP 127/74 02/13/23 09:26 BMI result Body Mass Index 22.6 Const General: healthy appearing, no acute distress and well developed Nutritional Appearance: well nourished Orientation/consciousness: patient oriented x3 HEENT Head: Yes normal to inspection, Yes normocephalic and Yes atraumatic Face and sinus: Yes normal facial exam Mouth: Normal oral and palatal mucosa present Throat: Yes posterior oropharynx normal, Yes tonsils normal and Yes uvula midline Eyes General: appearance normal, both eyes and all related structures Neck Neck: Yes normal visual inspection, Yes full ROM and Yes trachea midline Thyroid: Thyroid normal Resp Effort & Inspection: normal respiratory effort, able to speak in complete sentences, no tracheal deviation and symmetric chest movement Auscultation: clear to auscultation bilaterally Cardio Rate: regular rate Heart sounds: S1 normal heart sound present and S2 normal heart sound present GI Inspection: Yes normal to inspection and No distended Palpation (GI): Soft to palpation, not firm, nontender and No hepatosplenomegaly present Auscultation: normal bowel sounds General: Yes no CVA tenderness Back/Spine/Pelvis Back: no CVA tenderness Skin General skin exam: elasticity normal, turgor normal and dry skin Neuro General: patient oriented x3 Psych Appearance: grossly normal Mental Status: mental status grossly normal Assessment & Plan Assessment & Plan (1) Diverticulosis: Code(s): K57.90 - Diverticulosis of intestine, part unspecified, without perforation or abscess without bleeding Plan: Moderate diverticulosis found in sigmoid colon. Patient was encouraged to inc rease fiber in her diet, increase fluid intake and activity to promote better bowel movement (2) Status post colonoscopy: Code(s): Z98.890 - Other specified postprocedural states Plan: Patient denies any ill effects from the prep, anesthesia or procedure itself. Patient denies any GI concerning symptoms. No polyps found. Colonoscopy will be repeated in 5 years due to previous history of tubular adenoma. Patient will follow-up with us on as-needed basis. She is agreeable to this plan and verbalizes understanding of instructions. She was given the opportunity to ask questions and all questions answered. Thank you for allowing me to participate in her care Coding Level of Care Code Est Pt Level 3 (59736) Diagnoses Diverticulosis K57.90 Status post colonoscopy Z98.890 Time Spent (min) 25 Comment 15 minutes spent with patient and additional 10 minutes spent reviewing his records
[2023-02-13 09:26] VITALS: BP 127/74; PULSE 93; BMI 22.6
== END 2023-02-13 09:44 | disposition home or self-care (01) ==
PROVIDERS: Visit Provider Nurse Practitioner Family
DX: K57.90 Diverticulosis of intestine, part unspecified, without perforation or abscess without bleeding (principal); Z98.890 Other specified postprocedural states
CPT/HCPCS: 99213

== ENCOUNTER → 2023-02-13 09:09 | Outpatient (BNVA) | payer MEDICAID, SELFPAY | PROVIDERS: Visit Provider Nurse Practitioner Family | DX: K57.90 Diverticulosis of intestine, part unspecified, without perforation or abscess without bleeding (principal); Z98.890 Other specified postprocedural states | CPT/HCPCS: 99212 ==

== ENCOUNTER 2023-03-29 13:01 | Outpatient (REF) | payer MEDICAID, SELFPAY ==
--- NOTE | ~2023-03-29 | US_ITS ---
EXAMINATION: US PELVIS CLINICAL INFORMATION: Menorrhagia, last menstrual period 03/29/2023. COMPARISON: None available. TECHNIQUE: Ultrasound of the pelvis is performed using both transabdominal and transvaginal transducers along with Doppler. Transvaginal imaging is performed due to inadequate visualization transabdominally. FINDINGS: The uterus is retroflexed, heterogeneous and measures 7.9 x 5.4 x 6.8 cm. Endometrial thickness is 0.8 cm. Endometrium appears echogenic and heterogeneous. Right uterine 2.2 x 1.8 x 1.9 cm heterogeneous mass characteristic of a fibroid. A 1.8 x 1.5 x 1.8 cm heterogeneous mass abutting the endometrium on the left characteristic of a submucosal fibroid. A 1.4 x 1.3 x 1.5 cm left fibroid. Right ovary measures 2.7 x 1.4 x 1.5 cm, volume 2.97 mL. Left ovary measures 3.7 x 2.6 x 1.8 cm, volume 9.07 mL. Bilateral ovaries are unremarkable. No significant free fluid. US/US pelvic and transvaginal IMPRESSION: 1. Multiple uterine masses characteristic of fibroids. 2. Endometrial double wall thickness of 0.8 cm. 3. Bilateral ovaries are unremarkable.
== END 2023-03-29 13:02 | disposition home or self-care (01) ==
LOC: HO.US 13:01
PROVIDERS: Visit Provider Student in an Organized Health Care Education/Training Program
DX: N92.0 Excessive and frequent menstruation with regular cycle (principal)
CPT/HCPCS: 76830; 76856

== ENCOUNTER 2023-04-01 07:47 | Outpatient (REF) | payer MEDICAID, SELFPAY ==
--- NOTE | ~2023-04-01 | MM_ITS ---
EXAMINATION: MM SCREENING DIGITAL BREAST TOMOSYNTHESIS, BILATERAL CLINICAL INFORMATION: Screening. Asymptomatic. COMPARISON: Mammography: This study is compared with prior exams dating back to 2019. TECHNIQUE: Digital breast tomosynthesis is performed in both the craniocaudal and mediolateral oblique views along with computer-aided detection (CAD). Synthesized 2D images are generated from the tomosynthesis. FINDINGS: There are scattered areas of fibroglandular density (ACR BI-RADS breast composition Category b). There are no significant masses, abnormal calcifications, or other abnormalities. There is unknown, oval, well-circumscribed, benign mass in the upper outer quadrant of the left breast. It contains a biopsy tissue marker. MM/MM tomosynthesis screening BI IMPRESSION: No mammographic evidence of malignancy. ASSESSMENT: BI-RADS BI-RADS 2 - Benign Findings RECOMMENDATION: Routine annual mammography screening. 1 year F/U This examination should not preclude the clinical evaluation of a suspicious palpable abnormality. This patient's information was entered into a reminder system with a target due date for their next mammogram.
== END 2023-04-01 07:48 | disposition home or self-care (01) ==
LOC: HO.MAMMO 07:47
PROVIDERS: PCP Student in an Organized Health Care Education/Training Program; Visit Provider Nurse Practitioner
DX: Z12.31 Encounter for screening mammogram for malignant neoplasm of breast (principal)
CPT/HCPCS: 77063; 77067

== ENCOUNTER → 2023-04-01 08:00 | Outpatient (BNV) | payer MEDICAID, SELFPAY | PROVIDERS: PCP Student in an Organized Health Care Education/Training Program; Visit Provider Radiology Diagnostic Radiology | DX: Z12.31 Encounter for screening mammogram for malignant neoplasm of breast (principal) | CPT/HCPCS: 77063; 77067 ==

== ENCOUNTER 2023-04-23 10:11 | Outpatient (REF) | payer MEDICAID, SELFPAY ==
[2023-04-23 11:16] LABS: MANUAL DIFF FLAG NO
[2023-04-23 11:25] LABS: Basophils Absolute Auto 0.1 X10*3/uL (0.0-0.2); Basophils Percent Auto 0.7 % (0-2); Eosinophils Absolute Auto 0.2 X10*3/uL (0.0-0.4); Hematocrit 40.4 % (37.0-47.0); Imm Gran Abs Auto 0.04 X10*3/uL (0.00-0.03); Imm Gran Pct Auto 0.5 % (0.0-0.4); Lymphocytes Absolute Auto 1.4 X10*3/uL (1.2-4.9); Lymphocytes Percent Auto 16.6 % (20-40); Mean Corpuscular HGB Conc 32.2 g/dl (31.0-35.0); Mean Corpuscular Hemoglobin 26.7 pg (27.0-33.0); Mean Platelet Volume 10.7 fL (9.4-12.3); Monocytes Absolute Auto 0.5 X10*3/uL (0.1-1.2); Monocytes Percent Auto 6.3 % (2-11); Neutrophils Absolute Auto 6.4 x10*3/uL (2.0-8.3); Neutrophils Percent Auto 73.9 % (45-73); Platelet Count 265 X10*3/uL (160-400); Red Blood Count 4.87 X10*6/uL (4.20-5.50); Red Cell Distribution Width 15.9 % (11.0-16.0); White Blood Count 8.6 X10*3/uL (4.8-10.8)
[2023-04-23 11:57] LABS: Iron 204 mcg/dL (30-160); Percent Iron Saturation 57 % (15-50); Total Iron Binding Capacity 355 mcg/dL (228-428); Unsaturated Iron Binding 151 ug/dL
[2023-04-23 12:00] LABS: Ferritin 23 ng/mL (10-250)
== END 2023-04-23 10:12 | disposition home or self-care (01) ==
LOC: HO.HHCL 10:11
PROVIDERS: Visit Provider Student in an Organized Health Care Education/Training Program
DX: D50.9 Iron deficiency anemia, unspecified (principal)
CPT/HCPCS: 36415; 82728; 83540; 85025

== ENCOUNTER 2023-05-09 14:29 | Outpatient (REF) | payer MEDICAID, SELFPAY ==
--- NOTE | ~2023-05-09 | MR_ITS ---
EXAMINATION: MR BRAIN WITHOUT CONTRAST CLINICAL INFORMATION: Epilepsy. Headaches. COMPARISON: None. TECHNIQUE: Multiplanar, multisequence imaging of the brain was performed without contrast. FINDINGS: No diffusion abnormalities are identified to suggest an acute infarct. The ventricles are normal in size. No mass effect or midline shift is seen. No brain parenchymal signal abnormality is noted. No extra-axial fluid collections are seen. The brainstem and cerebellum are normal. No focal cortical dysplasia or migrational abnormality is seen. The hippocampi are normal in appearance. Mild bilateral frontoparietal brain parenchymal volume loss noted. The gradient refocused acquisition is normal. The craniovertebral junction, marrow signal, and midline structures are normal. The major intracranial flow voids at the level of the [place] are preserved. The dural venous sinus flow voids are maintained. The mastoid air cells are well aerated. There is an incidental 1.3 cm proteinaceous retention cyst in the right maxillary antrum. MR/MR head/brain wo con IMPRESSION: No acute process. No hippocampal pathology. Mild bilateral frontoparietal brain parenchymal volume loss.
== END 2023-05-09 14:30 | disposition home or self-care (01) ==
LOC: HO.MRI 14:29
PROVIDERS: PCP Student in an Organized Health Care Education/Training Program; Visit Provider Psychiatry & Neurology Neurology
DX: G40.909 Epilepsy, unspecified, not intractable, without status epilepticus (principal)
CPT/HCPCS: 70551

== ENCOUNTER 2023-06-05 07:16 | Outpatient (AMB) | payer MEDICAID, SELFPAY ==
--- NOTE | 2023-06-05 07:32 | MHC.OFFVIS ---
Intake Vital Signs 06/05/23 07:37 Height 5 ft 7 in Weight 143 lb BMI 22.4 BP 116/70 Intake Visit Reasons: Fibroids/Follow up abnomal pap/PCP referral Fitter / Welder Required: Yes Fitter / Welder Language: Tsa Screener Name: Michaela GARZA Information Interpreted: non-clinical & clinical Crime Scene Specialist: Crime Scene Specialist Present (Michaela GARZA) Accompanied by: Self / Same As Patient Allergies divalproex sodium Adverse Reaction (Verified 06/05/23 07:38) Unknown Is last menstrual period known: Yes Last menstrual period: 05/27/23 HPI HPI Comments History of Present Illness Details Presenting referred from PCP regarding heavy menstrual cycle associated with passage of blood clots and pelvic cramping. Pelvic ultrasound done on 04/01/23 showed the following: The uterus is retroflexed, heterogeneous and measures 7.9 x 5.4 x 6.8 cm. Endometrial thickness is 0.8 cm. Endometrium appears echogenic and heterogeneous. Right uterine 2.2 x 1.8 x 1.9 cm heterogeneous mass characteristic of a fibroid. A 1.8 x 1.5 x 1.8 cm heterogeneous mass abutting the endometrium on the left characteristic of a submucosal fibroid. A 1.4 x 1.3 x 1.5 cm left fibroid. Right ovary measures 2.7 x 1.4 x 1.5 cm, volume 2.97 mL. Left ovary measures 3.7 x 2.6 x 1.8 cm, volume 9.07 mL. Bilateral ovaries are unremarkable. No significant free fluid. Last co testing was in 01/17 was ascus/HPV negative Last mammogram was done in 03/25 was BI-RADS 2 Last screening colonoscopy was done in 04/23 [facility] Medical History Diverticulosis AIN grade III COVID-19 vaccine series completed Anal lesion Constipation Vitamin D deficiency Non-refractory epilepsy Surgical History Tubal ligation status History of surgical removal of lesion Hx of colonoscopy History of lumpectomy of right breast History of appendectomy Hx of cholecystectomy Family History Father Heart muscle disorder caused by another medical condition Social History Household Members: Spouse and Children Housing: House Alcohol intake: never Patient Tobacco Use Status: Never used Tobacco Current occupational status: unemployed Sexual orientation: Straight/Heterosexual Gender identity: Female Female Reproductive History Menstrual Date of last menstrual period: 05/27/23 control method: permanent sterilization Total pregnancies: 3 Full term: 3 Number of Living Children: 3 Review of Systems Const All systems reviewed & are unremarkable except as noted in HPI and below Card Reports as per HPI Resp Reports as per HPI GI Reports as per HPI and Reports no additional complaints Reports as per HPI Physical Exam Const General: cooperative, healthy appearing and comfortable Chest Chest palpation & inspection: normal inspection of the chest and normal palpation of entire chest wall Breast/axilla inspection: normal inspection of the breasts and normal inspection of the axillae Breast/axilla palpation: normal palpation of the breasts, normal palpation of the axillae and no axillary lymphadenopathy Resp Effort & Inspection: normal respiratory effort Auscultation: clear to auscultation bilaterally Percussion: percussion normal Cardio Palpation: normal PMI Rate: regular rate Rhythm: regular rhythm Heart sounds: no murmurs and no rubs Peripheral pulses: Peripheral pulses 2+ throughout GI Inspection: Yes normal to inspection Palpation (GI): Soft to palpation, nontender, no guarding, not rigid and No hepatosplenomegaly present Percussion: Yes normal to percussion Auscultation: normal bowel sounds Rectal Exam - Female: deferred General: Yes bladder normal to palpation External Female Exam: No lesion Speculum Exam - Vagina: normal appearance of the vagina, normal palpation, normal vaginal discharge and not erythematous Speculum Exam - Cervix: normal appearance of the cervix and normal palpation Bimanual exam- vagina & uterus: normal bimanual exam, normal palpation, uterine size normal, bladder normal to palpation, consistency normal and normal palpation Bimanual Exam- Adnexa, other: normal adnexae, no masses and no tenderness Assessment & Plan Assessment & Plan (1) Abnormal uterine bleeding (AUB): Code(s): N93.9 - Abnormal uterine and vaginal bleeding, unspecified Plan: Co testing done, GC and chlamydia taken CBC, prolactin, FSH/LH, TSH, HCG ordered and pelvic ultrasound done on 04/01/2023. Discussed with the patient the different causes of abnormal bleeding including thyroid disorders, uterine and ovarian pathology, endometrial hyperplasia, carcinoma and other potential causes. Discussed with the patient the work up including CBC (to r/o anemia), TSH, pelvic Ultrasound, endometrial biopsy to r/o endometrial pathology. All questions answered and the patient verbalized understanding. Instructed the patient to schedule an appointment for an endometrial biopsy in 2 weeks. (2) Uterine myoma: Code(s): D25.9 - Leiomyoma of uterus, unspecified Plan: Discussed with the patient the results of the ultrasound and the size/location of the myomas . Discussed with the patient risk of myosarcoma and symptoms that are caused by myomas including but not limited to pelvic pain, pressure symptoms, abnormal uterine bleeding. In addition discussed with the patient options of treatment for myomas including: Serial ultrasounds periodically to follow-up on the size of the myoma while targeting the treatment against fibroids related symptoms ( control pills, Mirena IUD, progesterone treatment, GnRH agonist/antagonist, hysteroscopic myomectomy for the submucosal myoma, uterine artery embolization or endometrial ablation) versus surgical treatment including hysterectomy and or myomectomy. All pros and cons, risks and benefits of all options were discussed with the patient. Will check the results of the workup order and discuss further options of treatment with the patient peer Orders: Orders Complete Blood Count no Diff Today N93.9 - Abnormal uterine and vaginal bleeding, unspecified HCG Quantitative Today N93.9 - Abnormal uterine and vaginal bleeding, unspecified TSH reflex Free T4 Today N93.9 - Abnormal uterine and vaginal bleeding, unspecified Prolactin Today N93.9 - Abnormal uterine and vaginal bleeding, unspecified Follicle Stimulating Hormone Today N93.9 - Abnormal uterine and vaginal bleeding, unspecified Lutenizing Hormone Today N93.9 - Abnormal uterine and vaginal bleeding, unspecified Coding Level of Care Code New Pt Level 3 (72997) Diagnoses Abnormal uterine bleeding (AUB) N93.9 Uterine myoma D25.9
[2023-06-05 07:37] VITALS: BP 116/70; BMI 22.4
== END 2023-06-05 07:57 | disposition home or self-care (01) ==
PROVIDERS: PCP Student in an Organized Health Care Education/Training Program; Referring Provider Student in an Organized Health Care Education/Training Program; Visit Provider Obstetrics & Gynecology
DX: N93.9 Abnormal uterine and vaginal bleeding, unspecified (principal); D25.9 Leiomyoma of uterus, unspecified
CPT/HCPCS: 99203

== ENCOUNTER 2023-06-05 07:16 | Outpatient (REF) | payer MEDICAID, SELFPAY ==
[2023-06-05 08:41] LABS: Hematocrit 36.6 % (37.0-47.0); Hemoglobin 11.9 g/dl (12.0-16.0); Mean Corpuscular HGB Conc 32.5 g/dl (31.0-35.0); Mean Corpuscular Hemoglobin 27.1 pg (27.0-33.0); Mean Corpuscular Volume 83.4 fL (80.0-98.0); Mean Platelet Volume 9.9 fL (9.4-12.3); Platelet Count 211 X10*3/uL (160-400); Red Blood Count 4.39 X10*6/uL (4.20-5.50); Red Cell Distribution Width 13.2 % (11.0-16.0); White Blood Count 7.3 X10*3/uL (4.8-10.8)
[2023-06-05 10:28] LABS: HCG Quantitative < 2 mIU/mL; TSH reflex Free T4 1.69 uIU/mL (0.32-4.0)
[2023-06-07 04:05] LABS: Follicle Stimulating Hormone 5.5 mIU/mL; Lutenizing Hormone 5.6 mIU/mL; Prolactin 7.9 ng/mL
== END 2023-06-05 07:17 | disposition home or self-care (01) ==
LOC: HO.LAB 07:16
PROVIDERS: PCP Student in an Organized Health Care Education/Training Program; Visit Provider Obstetrics & Gynecology
DX: N93.9 Abnormal uterine and vaginal bleeding, unspecified (principal); D25.9 Leiomyoma of uterus, unspecified
CPT/HCPCS: 0353U; 83001; 83002; 84146; 84443; 84702; 85027; 87624; 88142; 99202

== ENCOUNTER 2023-07-16 07:14 | Outpatient (REF) | payer MEDICAID, SELFPAY | END 2023-07-16 07:15 | disposition home or self-care (01) | LOC: HO.LNP 07:14 | PROVIDERS: PCP Student in an Organized Health Care Education/Training Program; Visit Provider Obstetrics & Gynecology | DX: N93.9 Abnormal uterine and vaginal bleeding, unspecified (principal) | CPT/HCPCS: 58100; 81025; 88305 ==

== ENCOUNTER 2023-07-16 07:14 | Outpatient (AMB) | payer MEDICAID, SELFPAY ==
--- NOTE | 2023-07-16 07:29 | MHC.OFFVIS ---
Intake Vital Signs 07/16/23 07:30 Height 5 ft 7 in Weight 141 lb 1.533 oz BMI 22.1 BP 118/70 Intake Visit Reasons: EMB Studio Operator Required: No Information Interpreted: non-clinical & clinical Health Information Director: Health Information Director Present (Michaela Gentile KAYLA) Accompanied by: Self / Same As Patient Allergies divalproex sodium Adverse Reaction (Verified 07/16/23 07:42) Unknown HPI HPI Comments History of Present Illness Details Presenting for EMB [facility] Medical History Diverticulosis AIN grade III COVID-19 vaccine series completed Anal lesion Constipation Vitamin D deficiency Non-refractory epilepsy Surgical History Tubal ligation status History of surgical removal of lesion Hx of colonoscopy History of lumpectomy of right breast History of appendectomy Hx of cholecystectomy Family History Father Heart muscle disorder caused by another medical condition Social History Household Members: Spouse and Children Housing: House Alcohol intake: never Patient Tobacco Use Status: Never used Tobacco Current occupational status: unemployed Sexual orientation: Straight/Heterosexual Gender identity: Female Female Reproductive History Menstrual Date of last menstrual period: 06/26/23 Review of Systems Const All systems reviewed & are unremarkable except as noted in HPI and below Reports as per HPI and Reports no additional complaints GI Reports no additional complaints Reports no additional complaints Physical Exam Vital Signs: Last Vital Signs BP 118/70 07/16/23 07:30 BMI result Body Mass Index 22.1 Office Procedures Endometrial Biopsy Details: The patient was counseled regarding the indication and benefits of endometrial sampling to rule out endometrial pathology including not limited to endometrial hyperplasia or endometrial cancer and others; The alternatives (Either do nothing vs. hysteroscopy D&C) & the risks were discussed with the patient including but not limited: pain, uterine perforation, bleeding, infection, possible injury to bladder, bowel, ureter, possible need for blood transfusion with all its possible risks. The patient verbalized understanding all questions answered and signed consent. Urine test done in the office was negative The patient was placed into the dorsal lithotomy position; a speculum was inserted in the vagina. Using aseptic technique for the procedure, the cervix was cleansed with Betadine. The anterior lip of the cervix was grasped with a single tooth tenaculum. The uterus was sounded to 7 cm with a 4 mm Pipelle was used. Tissues samples were obtained and placed in formalin, in a patient labeled container and sent to the pathology department. At the end of the procedure, there was minimal bleeding noted The patient tolerated the procedure well and was discharged in good condition with the following instructions: Nothing in the vagina until the bleeding stops. No sex until the bleeding stops, to call if any of the following occurs: fever (>100.4), flu-like symptoms, abdominal pain, heavy bleeding, four smelling vaginal discharge. The patient was instructed to schedule a Follow up appointment in 2 weeks to discuss pathology results of the biopsy and treatment options. This note was generated with a voice recognition program. Some errors may have been overlooked during the review of this note. Sometimes these errors may affect the content or meaning of a given sentence. [id number] Biopsy Assessment & Plan Assessment & Plan (1) Abnormal uterine bleeding (AUB): Code(s): N93.9 - Abnormal uterine and vaginal bleeding, unspecified Plan: EMB done, see procedure note Orders: Orders AMB Endometrial Biopsy Today N93.9 - Abnormal uterine and vaginal bleeding, unspecified Coding Level of Care Code Procedure Only Diagnoses Abnormal uterine bleeding (AUB) N93.9 CPT Codes Endometrial Biopsy - CPT: 31834-[id number] Biopsy ([id number])
[2023-07-16 07:30] VITALS: BP 118/70; BMI 22.1
== END 2023-07-16 08:10 | disposition home or self-care (01) ==
PROVIDERS: PCP Student in an Organized Health Care Education/Training Program; Visit Provider Obstetrics & Gynecology
DX: N93.9 Abnormal uterine and vaginal bleeding, unspecified (principal); Z32.02 Encounter for pregnancy test, result negative
CPT/HCPCS: 58100

== ENCOUNTER 2023-08-21 08:40 | Outpatient (AMB) | payer MEDICAID, SELFPAY ==
--- NOTE | 2023-08-21 09:02 | MHC.OFFVIS ---
Intake Vital Signs 08/21/23 09:04 Height 5 ft 7 in Weight 156 lb 6 oz BMI 24.5 BP 151/70 H Blood Pressure Location Lt brachial Position Sitting Pulse 101 H Intake Visit Reasons: Anal carcinoma, 1 yr follow up Intake Note: Patient is seen in office for one year follow up visit, following anal carcinoma. Pt c/o: admits to constipation taking Senna with relief, denies any other concerns n/v/d Cartridge Loading Operator Required: No Accompanied by: Self / Same As Patient Allergies divalproex sodium Adverse Reaction (Verified 08/21/23 09:05) Unknown Medication List - Last Reconciled 08/21/23 by Elvin Smith MD ascorbate calcium (vitamin C) 500 mg PO DAILY ferrous sulfate 325 mg PO DAILY ibuprofen 600 mg PO Q6H PRN lamotrigine 100 mg PO DAILY levetiracetam (Keppra) 250 mg PO BID multivitamin 1 tab PO DAILY sennosides (Natural Senna Laxative) 8.6 mg PO BEDTIME HPI Anal carcinoma, 1 yr follow up HPI Details She is here for follow-up for her history of AIN 3. This was seen on a polypoid lesion removed 2 years ago. The margins were negative She denies any complaints at this time. She denies any problems with anal pain, or bleeding. [facility] Medical History Diverticulosis AIN grade III COVID-19 vaccine series completed Anal lesion Constipation Vitamin D deficiency Non-refractory epilepsy Surgical History Tubal ligation status History of surgical removal of lesion Hx of colonoscopy History of lumpectomy of right breast History of appendectomy Hx of cholecystectomy Family History Father Heart muscle disorder caused by another medical condition Social History Household Members: Spouse and Children Housing: House Alcohol intake: never Patient Tobacco Use Status: Never used Tobacco Current occupational status: unemployed Sexual orientation: Straight/Heterosexual Gender identity: Female Review of Systems Const Denies chills and Denies fever(s) Card Denies chest pain, Denies dyspnea and Denies dyspnea on exertion Resp Denies cough, Denies dyspnea and Denies dyspnea on exertion GI Denies hematochezia and Denies change in bowel habits Denies hematuria Musc Denies back pain and Denies limited range of motion Neuro Denies focal weakness and Denies convulsions Psych Denies depression and Denies mood swings Physical Exam Vital Signs: Last Vital Signs Pulse 101 H 08/21/23 09:04 BP 151/70 H 08/21/23 09:04 BMI result Body Mass Index 24.5 Const General: comfortable and no acute distress Orientation/consciousness: patient oriented x3 Neck Neck: Yes no lymphadenopathy Resp Auscultation: clear to auscultation bilaterally Cardio Rhythm: regular rhythm GI Other: She was in michele-knife position. The anoscope was gently inserted. A full examination of the anal canal was done. There were no lesions seen in the anal canal. There was no polyp or any induration or fissure. There was no induration on digital exam. There was no blood. 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 Follow-up syncope today does not reveal any new lesions or any recurrence. The anal canal appears unremarkable. I told her that if she notices any changes, she should come back to the office otherwise, I can see her next year and repeat the anoscopy. She says she understands and is comfortable with the plan. Coding Level of Care Code Est Pt Level 3 (67443) Diagnoses AIN grade III D01.3
[2023-08-21 09:04] VITALS: BP 151/70; PULSE 101; BMI 24.5
== END 2023-08-21 09:40 | disposition home or self-care (01) ==
PROVIDERS: PCP Student in an Organized Health Care Education/Training Program; Visit Provider Surgery
DX: D01.3 Carcinoma in situ of anus and anal canal (principal)
CPT/HCPCS: 99213

== ENCOUNTER → 2023-08-21 08:40 | Outpatient (BNVA) | payer MEDICAID, SELFPAY | PROVIDERS: PCP Student in an Organized Health Care Education/Training Program; Visit Provider Surgery | DX: D01.3 Carcinoma in situ of anus and anal canal (principal) | CPT/HCPCS: 99212 ==

== ENCOUNTER 2023-09-05 07:57 | Outpatient (AMB) | payer MEDICAID, SELFPAY ==
--- NOTE | 2023-09-05 07:58 | MHC.OFFVIS ---
Intake Vital Signs 09/05/23 08:00 Height 5 ft 7 in Weight 154 lb 5.177 oz BMI 24.2 BP 120/72 Intake Visit Reasons: EMB follow up/DO NOT RS Check Viewer Required: Yes Check Viewer Language: Renewable Energy Consultant Name: Michaela GARZA Information Interpreted: non-clinical & clinical Accompanied by: Self / Same As Patient Allergies divalproex sodium Adverse Reaction (Verified 09/05/23 08:02) Unknown Is last menstrual period known: Yes Last menstrual period: 08/23/23 HPI HPI Comments History of Present Illness Details The patient is presenting for follow-up to discuss the results of her abnormal uterine bleeding workup and options of treatment. The following workup was done.: H&H= 11.9/36.6 TSH, hCG, GC and chlamydia were negative. FSH/ LH in the premenopausal range Endometrial biopsy pathology showed early benign secretory endometrium with no evidence of hyperplasia and/or malignancy. Co testing was done was negative. Mammogram done in 03/25 was BI-RADS 2. Pelvic ultrasound showed the following: The uterus is retroflexed, heterogeneous and measures 7.9 x 5.4 x 6.8 cm. Endometrial thickness is 0.8 cm. Endometrium appears echogenic and heterogeneous. Right uterine 2.2 x 1.8 x 1.9 cm heterogeneous mass characteristic of a fibroid. A 1.8 x 1.5 x 1.8 cm heterogeneous mass abutting the endometrium on the left characteristic of a submucosal fibroid. A 1.4 x 1.3 x 1.5 cm left fibroid. Right ovary measures 2.7 x 1.4 x 1.5 cm, volume 2.97 mL. Left ovary measures 3.7 x 2.6 x 1.8 cm, volume 9.07 mL. Bilateral ovaries are unremarkable. No significant free fluid. PFSH Medical History Diverticulosis AIN grade III COVID-19 vaccine series completed Anal lesion Constipation Vitamin D deficiency Non-refractory epilepsy Surgical History Tubal ligation status History of surgical removal of lesion Hx of colonoscopy History of lumpectomy of right breast History of appendectomy Hx of cholecystectomy Family History Father Heart muscle disorder caused by another medical condition Social History Household Members: Spouse and Children Housing: House Alcohol intake: never Patient Tobacco Use Status: Never used Tobacco Current occupational status: unemployed Sexual orientation: Straight/Heterosexual Gender identity: Female Female Reproductive History Menstrual Date of last menstrual period: 08/23/23 Review of Systems Const All systems reviewed & are unremarkable except as noted in HPI and below Reports as per HPI and Reports no additional complaints GI Reports no additional complaints Reports no additional complaints Physical Exam Vital Signs: Last Vital Signs BP 120/72 09/05/23 08:00 BMI result Body Mass Index 24.2 Assessment & Plan Assessment & Plan (1) Abnormal uterine bleeding (AUB): Code(s): N93.9 - Abnormal uterine and vaginal bleeding, unspecified Plan: Discussed with the patient the results of the work up done and options of treatment including Lysteda, BCP's, Mirena IUD, endometrial ablation and hysterectomy. All pros, cons, risks and benefits if each option was discussed with the patient and the patient decided to go ahead with Lysteda , so a more detailed discussion re: Lysteda including mechanism of action, benefits, risks including but not limited to thrombosis and strokes, Instructions were given on how to use, 2 tablets p.o. 3 times a day day 1 up to 3-5 days of menses and to schedule a 3 months follow-up appointment. The patient verbalized understanding and agreed with the plan. (2) Uterine myoma: Code(s): D25.9 - Leiomyoma of uterus, unspecified Plan: Discussed with the patient the findings on pelvic ultrasound & the risk of myosarcoma; discussed with the patient the options of treatment including expectant management versus hysterectomy; the pros and cons, risks benefits of each approach were discussed with the patient including the fact that in cases of myosarcoma, surgical treatment can lead to early diagnosis and positively affects the prognosis; after further discussion, the patient decided to proceed with expectant management. Will repeat pelvic ultrasound periodically. Instructions given to patient to call in case any of the following occurs: pressure symptoms, abnormal uterine bleeding, pelvic pain; and to schedule a six-month pelvic ultrasound and a follow-up appointment . All questions answered, the patient verbalized understanding and agreed with the plan . Orders: Orders US pelvic and transvaginal 6 Months D25.9 - Leiomyoma of uterus, unspecified Medications: New tranexamic acid Start 1st day of menses and take it up to 3-5 days of menses. 1,300 mg (2 x 650 mg) PO TID 5 days 30 tabs 2RF Coding Level of Care Code Est Pt Level 3 (99981) Diagnoses Abnormal uterine bleeding (AUB) N93.9 Uterine myoma D25.9
[2023-09-05 08:00] VITALS: BP 120/72; BMI 24.2
== END 2023-09-05 08:24 | disposition home or self-care (01) ==
PROVIDERS: PCP Student in an Organized Health Care Education/Training Program; Visit Provider Obstetrics & Gynecology
DX: N93.9 Abnormal uterine and vaginal bleeding, unspecified (principal); D25.9 Leiomyoma of uterus, unspecified
CPT/HCPCS: 99213

== ENCOUNTER → 2023-09-05 07:57 | Outpatient (BNVA) | payer MEDICAID, SELFPAY | PROVIDERS: PCP Student in an Organized Health Care Education/Training Program; Visit Provider Obstetrics & Gynecology | DX: N93.9 Abnormal uterine and vaginal bleeding, unspecified (principal); D25.9 Leiomyoma of uterus, unspecified | CPT/HCPCS: 99212 ==

== ENCOUNTER 2023-09-18 08:37 | Outpatient (REF) | payer MEDICAID, SELFPAY ==
[2023-09-18 11:25] LABS: MANUAL DIFF FLAG NO
[2023-09-18 11:45] LABS: Basophils Absolute Auto 0.1 X10*3/uL (0.0-0.2); Basophils Percent Auto 0.7 % (0-2); Eosinophils Absolute Auto 0.2 X10*3/uL (0.0-0.4); Eosinophils Percent Auto 2.9 % (0-4); Hematocrit 37.9 % (37.0-47.0); Hemoglobin 12.5 g/dl (12.0-16.0); Imm Gran Abs Auto 0.03 X10*3/uL (0.00-0.03); Imm Gran Pct Auto 0.4 % (0.0-0.4); Lymphocytes Absolute Auto 1.9 X10*3/uL (1.2-4.9); Lymphocytes Percent Auto 23.4 % (20-40); Mean Corpuscular Hemoglobin 28.4 pg (27.0-33.0); Mean Corpuscular Volume 86.1 fL (80.0-98.0); Mean Platelet Volume 11.3 fL (9.4-12.3); Monocytes Absolute Auto 0.5 X10*3/uL (0.1-1.2); Neutrophils Absolute Auto 5.4 x10*3/uL (2.0-8.3); Neutrophils Percent Auto 66.6 % (45-73); Platelet Count 241 X10*3/uL (160-400); Red Cell Distribution Width 13.6 % (11.0-16.0); White Blood Count 8.1 X10*3/uL (4.8-10.8)
[2023-09-18 12:12] LABS: Iron 28 mcg/dL (30-160); Percent Iron Saturation 9 % (15-50); Total Iron Binding Capacity 316 mcg/dL (228-428); Unsaturated Iron Binding 288 ug/dL
[2023-09-18 12:16] LABS: Ferritin 35 ng/mL (10-250)
== END 2023-09-18 08:38 | disposition home or self-care (01) ==
LOC: HO.HHCL 08:37
PROVIDERS: Visit Provider Student in an Organized Health Care Education/Training Program
DX: D50.9 Iron deficiency anemia, unspecified (principal)
CPT/HCPCS: 36415; 82728; 83540; 85025

== ENCOUNTER 2023-12-04 07:50 | Outpatient (AMB) | payer MEDICAID, SELFPAY ==
[2023-12-04 08:52] VITALS: BP 110/72; BMI 24.2
--- NOTE | 2023-12-04 08:52 | A.OFFVIS_ITS ---
Vital Signs 12/04/23 08:52 Height 5 ft 7 in Weight 154 lb 5.177 oz BMI 24.2 BP 110/72 Intake Visit Reasons: 3 month med follow up Allergies divalproex sodium Adverse Reaction (Verified 09/05/23 08:02) Unknown HPI Comments Details: The patient is presenting for three-month follow-up after trying Lysteda, states that her menstrual cycles are still heavy not light and is interested in discussing different options of treatment. The following workup was done few months ago H&H= 11.9/36.6 TSH, hCG, GC and chlamydia were negative. FSH/ LH in the premenopausal range Endometrial biopsy pathology showed early benign secretory endometrium with no evidence of hyperplasia and/or malignancy. Co testing was done was negative. Mammogram done in 03/25 was BI-RADS 2. Pelvic ultrasound showed the following: The uterus is retroflexed, heterogeneous and measures 7.9 x 5.4 x 6.8 cm. Endometrial thickness is 0.8 cm. Endometrium appears echogenic and heterogeneous. Right uterine 2.2 x 1.8 x 1.9 cm heterogeneous mass characteristic of a fibroid. A 1.8 x 1.5 x 1.8 cm heterogeneous mass abutting the endometrium on the left characteristic of a submucosal fibroid. A 1.4 x 1.3 x 1.5 cm left fibroid. Right ovary measures 2.7 x 1.4 x 1.5 cm, volume 2.97 mL. Left ovary measures 3.7 x 2.6 x 1.8 cm, volume 9.07 mL. Bilateral ovaries are unremarkable. No significant free fluid. The patient is scheduled for repeat ultrasound in 3 months [facility] Medical History Diverticulosis AIN grade III COVID-19 vaccine series completed Anal lesion Constipation Vitamin D deficiency Non-refractory epilepsy Surgical History Tubal ligation status History of surgical removal of lesion Hx of colonoscopy History of lumpectomy of right breast History of appendectomy Hx of cholecystectomy Family History Father Heart muscle disorder caused by another medical condition Social History Household Members: Spouse and Children Housing: House Alcohol intake: never Patient Tobacco Use Status: Never used Tobacco Current occupational status: unemployed Sexual orientation: Straight/Heterosexual Gender identity: Female Review of Systems Const All systems reviewed & are unremarkable except as noted in HPI and below Reports as per HPI and Reports no additional complaints GI Reports no additional complaints Reports no additional complaints Physical Exam Vital Signs: Last Vital Signs BP 110/72 12/04/23 08:52 BMI result Body Mass Index 24.2 Assessment & Plan Assessment & Plan (1) Uterine myoma: Code(s): D25.9 - Leiomyoma of uterus, unspecified Category: Medical Plan: Pelvic ultrasound is scheduled in 3 months with a follow-up appointment. (2) Abnormal uterine bleeding (AUB): Code(s): N93.9 - Abnormal uterine and vaginal bleeding, unspecified Category: Medical Plan: Discussed with the patient the results of the work up done and options of treatment including control pills, Mirena IUD, endometrial ablation and hysterectomy. All pros, cons, risks and benefits if each option was discussed with the patient and the patient decided to go ahead with Mirena IUD so a more detailed discussion about it was conducted including mechanism of action, risks (uterine perforation, infection, injury to bladder, bowel, displacement, and others) benefits (hypo menorrhea, amenorrhea, ...). GC/CT were taken and the patient was instructed to schedule Mirena IUD insertion on day 1-5 of next cycle . All questions answered, the patient verbalized understanding Coding Level of Care Code Est Pt Level 3 (89844) Diagnoses Uterine myoma D25.9 Abnormal uterine bleeding (AUB) N93.9
== END 2023-12-04 09:07 | disposition home or self-care (01) ==
PROVIDERS: PCP Student in an Organized Health Care Education/Training Program; Referring Provider Student in an Organized Health Care Education/Training Program; Visit Provider Obstetrics & Gynecology
DX: D25.9 Leiomyoma of uterus, unspecified (principal); N93.9 Abnormal uterine and vaginal bleeding, unspecified
CPT/HCPCS: 99213

== ENCOUNTER → 2023-12-04 07:50 | Outpatient (BNVA) | payer MEDICAID, SELFPAY | PROVIDERS: PCP Student in an Organized Health Care Education/Training Program; Visit Provider Obstetrics & Gynecology | DX: D25.9 Leiomyoma of uterus, unspecified (principal); N93.9 Abnormal uterine and vaginal bleeding, unspecified | CPT/HCPCS: 99212 ==

== ENCOUNTER 2023-12-17 07:43 | Outpatient (AMB) | payer MEDICAID, SELFPAY ==
--- NOTE | 2023-12-17 07:43 | MHC.OFFVIS ---
Vital Signs 12/17/23 07:45 Height 5 ft 7 in Weight 154 lb 5.177 oz BMI 24.2 BP 122/70 Intake Visit Reasons: Mirena Insertion Allergies divalproex sodium Adverse Reaction (Verified 09/05/23 08:02) Unknown HPI Comments Details: Presenting for Mirena IUD insertion [facility] Medical History Diverticulosis AIN grade III COVID-19 vaccine series completed Anal lesion Constipation Vitamin D deficiency Non-refractory epilepsy Surgical History Tubal ligation status History of surgical removal of lesion Hx of colonoscopy History of lumpectomy of right breast History of appendectomy Hx of cholecystectomy Family History Father Heart muscle disorder caused by another medical condition Social History Household Members: Spouse and Children Housing: House Alcohol intake: never Patient Tobacco Use Status: Never used Tobacco Current occupational status: unemployed Sexual orientation: Straight/Heterosexual Gender identity: Female Review of Systems Const All systems reviewed & are unremarkable except as noted in HPI and below Reports as per HPI and Reports no additional complaints GI Reports no additional complaints Reports no additional complaints Physical Exam Vital Signs: Last Vital Signs BP 122/70 12/17/23 07:45 BMI result Body Mass Index 24.2 Office Procedures IUD Insert/Removal Details Additional procedure code (CPT) needed (this order entered in error - Practice supplied was given ) IUD Insert/Removal Details Details: The patient is presenting for Mirena IUD insertion Urine test was done in the office and was negative; All the contraindications were excluded. The following possible complications were discussed with the patient: Intrauterine , Ectopic , Sepsis, Pelvic Infection, Irregular Bleeding and Amenorrhea, Perforation, Expulsion, Ovarian Cysts, Breast Cancer, The following adverse effects were discussed with the patient: alteration of menstrual bleeding pattern, including: unscheduled uterine bleeding decreased uterine bleeding increased scheduled uterine bleeding female genital tract bleeding ,amenorrhea , genital discharge , vulvovaginitis , breast pain , benign ovarian cyst and associated complications , dysmenorrhea , Gastrointestinal disorders abdominal/pelvic pain, headache/migraine , back pain , acne , depression Alternative options were discussed with the patient including but not limited: control pills, patch, NuvaRing, Depo-medroxyprogesterone acetate, Nexplanon, copper IUD, sterilization, vasectomy, others The procedure was explained in detail to patient , at the end patient signed the informed consent obtained. A no touch technique was used throughout the procedure. A speculum was placed into vagina and cervix was cleaned with betadine). A tenaculum was placed. A plastic sound was advanced through the external and internal os until it reached the fundus of the uterus, the depth was 8 cm. The sound was then withdrawn. The IUD was loaded in a sterile manner and advanced into position. The string was visualized and cut to 3 cm. Tenaculum site hemostatic. All instruments removed from vagina. Patient tolerated the procedure well. NO complications were noted. Patient was instructed to call for fever over 100.4, significant pain unrelieved by Motrin, IUD expulsion, heavy bleeding, or abnormal discharge. In addition, the following clinical considerations were discussed with the patient to call for removal: A stroke or heart attack ,Very severe or migraine headaches ,Unexplained fever ,Yellowing of the skin or whites of the eyes, as these may be signs of serious liver problems , or suspected , Pelvic pain or pain during sex ,HIV positive seroconversion in herself or her partner , Possible exposure to sexually transmitted infections Unusual vaginal discharge or genital sores , severe vaginal bleeding or bleeding that lasts a long time, or if she misses a menstrual period, Inability to feel Mirena's threads Counseled the patient that the IUD does not protect against STI's, recommended use of condoms for the first 7 days post insertion and explained to the patient that condoms are recommended for patients at risk for sexually transmitted infections. Informed the patient that Mirena IUD is FDA approved for 8 years for contraception for 5 years for the treatment of heavy menses Instructed the patient to schedule a Follow up appointment in 4 to 6 weeks following insertion. This note was generated with a voice recognition program. Some errors may have been overlooked during the review of this note. Sometimes these errors may affect the content or meaning of a given sentence. [id number] Insertion Procedure code (CPT) selection complete Office Meds Mirena 21 mcg/24 hr (up to 8 years) 52 mg intrauterine device Performing Provider: Tu Mendez MD Performing Location: [facility] [place] [facility] Documented (not given) by: Tu Mendez MD on 12/17/23 08:04 Reason Not Given: No Longer Necessary Mirena 21 mcg/24 hr (up to 8 years) 52 mg intrauterine device Performing Provider: Tu Mendez MD Performing Location: [facility] [place] [facility] Administered by: Tu Mendez MD on 12/17/23 08:35 Dose Route Admin Location Dispensed Lot Number Expiration Date [facility] [employer] 1 device intrauterine [facility] 1 device [id number] 11/30/25 79704-195-14 [employer]OOP,PHARM [employer] Results AMB Test Urine AMB Test Urine Negative Last Edit by Michaela Gentile CMA on 12/17/23 07:51 Results Reviewed Results Reviewed: Laboratory Last Values [facility]st Clinic Negative 12/17/23 07:50 Assessment & Plan Assessment & Plan (1) Encounter for IUD insertion: Code(s): Z30.430 - Encounter for insertion of intrauterine contraceptive device Category: Medical Plan: Mirena IUD inserted, see procedure note. Mirena IUD placed was practice supply not patient's supply, the order for Mirena IUD as patient supply was placed in error and could not be deleted you to [employer] technical difficulties. Orders: Orders AMB HCG Urine Test Today Z32.02 - Encounter for test, result negative AMB IUD Insertion/Removal - Patient Supply Today N93.9 - Abnormal uterine and vaginal bleeding, unspecified AMB IUD Insertion/Removal - Practice Supplied Today N93.9 - Abnormal uterine and vaginal bleeding, unspecified, Z30.430 - Encounter for insertion of intrauterine contraceptive device Coding Level of Care Code Est Pt Level 3 (09302) Procedure Only Diagnoses Encounter for IUD insertion Z30.430 CPT Codes Details - CPT: 00653-RUE Insertion ([id number]) Comment IUD was practice supply not patient's supply
[2023-12-17 07:45] VITALS: BP 122/70; BMI 24.2
== END 2023-12-17 08:08 | disposition home or self-care (01) ==
LOC: HO.HWS 07:43
PROVIDERS: PCP Student in an Organized Health Care Education/Training Program; Visit Provider Obstetrics & Gynecology
DX: Z30.430 Encounter for insertion of intrauterine contraceptive device (principal); N93.9 Abnormal uterine and vaginal bleeding, unspecified; Z32.02 Encounter for pregnancy test, result negative
CPT/HCPCS: 58300

== ENCOUNTER → 2023-12-17 07:43 | Outpatient (BNVA) | payer MEDICAID, SELFPAY | PROVIDERS: PCP Student in an Organized Health Care Education/Training Program; Visit Provider Obstetrics & Gynecology | DX: Z30.430 Encounter for insertion of intrauterine contraceptive device (principal); Z32.02 Encounter for pregnancy test, result negative | CPT/HCPCS: 58300; 81025; J7298 ==

== ENCOUNTER 2024-03-05 10:49 | Outpatient (REF) | payer MEDICAID, SELFPAY ==
--- NOTE | ~2024-03-05 | US_ITS ---
EXAMINATION:US PELVIS TRANSABDOMINAL AND TRANSVAGINAL CLINICAL INFORMATION: D25.9 - Leiomyoma of uterus, unspecified COMPARISON: No priors available. LMP: Irregular unknown FINDINGS: UTERUS: The uterus is anteverted. Size: 8.5 x 5.4 x 6.4 cm. Uterine mass: Intramural uterine masses likely fibroids measuring up to 2.5 cm, 1.3 cm and 1.6 cm, not significantly changed allowing for interobserver variability. Cervix: Grossly unremarkable. Endometrium: No ultrasound evidence of endometrial lesion. endometrial thickness measures 0.[address] properly positioned. ADNEXA: Prominent vessels around the left adnexa, cannot rule out pelvic congestion. Right ovary: Normal in size. Left ovary: Normal in size. Doppler exam: Normal Doppler flow identified in both ovaries. FREE FLUID: Trace amount of free fluid. OTHER FINDINGS: None US/US pelvic and transvaginal IMPRESSION: * Multiple uterine masses likely fibroids, not significantly changed allowing for interobserver variability. * Prominent vessels around the left adnexa, cannot rule out pelvic congestion. Please correlate clinically. * IUD in place properly positioned. Electronically signed by: Jaskaran Brown MD 04/16/2024 08:02 AM KYLEE
== END 2024-03-05 10:50 | disposition home or self-care (01) ==
LOC: HO.US 10:49
PROVIDERS: PCP Student in an Organized Health Care Education/Training Program; Visit Provider Obstetrics & Gynecology
DX: D25.9 Leiomyoma of uterus, unspecified (principal)
CPT/HCPCS: 76830; 76856

== ENCOUNTER 2024-04-06 07:43 | Outpatient (REF) | payer MEDICAID, SELFPAY ==
--- NOTE | ~2024-04-06 | MM_ITS ---
EXAMINATION: MM SCREENING DIGITAL BREAST TOMOSYNTHESIS, BILATERAL CLINICAL INFORMATION: Screening. Asymptomatic. COMPARISON: Mammography: Comparison is made with available priors TECHNIQUE: Digital breast mammography with tomosynthesis is performed in both the craniocaudal and mediolateral oblique views along with computer-aided detection (CAD). FINDINGS: The breasts are heterogeneously dense, which may obscure small masses (ACR BI-RADS breast composition Category c). Left marker clip. There are no significant masses, abnormal calcifications, or other abnormalities. MM/MM tomosynthesis screening BI IMPRESSION: No mammographic evidence of malignancy. ASSESSMENT: BI-RADS BI-RADS 2 - Benign Findings RECOMMENDATION: Routine annual mammography screening. 1 year F/U This examination should not preclude the clinical evaluation of a suspicious palpable abnormality. This patient's information was entered into a reminder system with a target due date for their next mammogram. Electronically signed by: Alexandra Cardozo DO 04/14/2024 10:37 AM KYLEE
== END 2024-04-06 07:44 | disposition home or self-care (01) ==
LOC: HO.MAMMO 07:43
PROVIDERS: PCP Student in an Organized Health Care Education/Training Program; Visit Provider Student in an Organized Health Care Education/Training Program
DX: Z12.31 Encounter for screening mammogram for malignant neoplasm of breast (principal)
CPT/HCPCS: 77063; 77067

== ENCOUNTER → 2024-04-06 08:00 | Outpatient (BNV) | payer MEDICAID, SELFPAY | PROVIDERS: PCP Student in an Organized Health Care Education/Training Program; Visit Provider Internal Medicine | DX: Z12.31 Encounter for screening mammogram for malignant neoplasm of breast (principal) | CPT/HCPCS: 77063; 77067 ==

== ENCOUNTER 2024-04-09 09:36 | Outpatient (REF) | payer MEDICAID, SELFPAY ==
[2024-04-09 11:35] LABS: Estimated Average Glucose 111 mg/dL; Hematocrit 38.8 % (37.0-47.0); Hemoglobin 12.9 g/dl (12.0-16.0); Hemoglobin A1C 125.0262 umol/L; Hemoglobin A1c % 5.5 % (<6.0); Mean Corpuscular HGB Conc 33.2 g/dl (31.0-35.0); Mean Corpuscular Hemoglobin 28.7 pg (27.0-33.0); Mean Corpuscular Volume 86.2 fL (80.0-98.0); Mean Platelet Volume 10.5 fL (9.4-12.3); Platelet Count 250 X10*3/uL (160-400); Red Cell Distribution Width 13.2 % (11.0-16.0); White Blood Count 7.2 X10*3/uL (4.8-10.8)
[2024-04-09 12:07] LABS: Alanine Aminotransferase 12 U/L (0-31); Albumin Level 3.9 g/dL (3.5-5.0); Alkaline Phosphatase 53 U/L (39-117); Anion Gap 10 (12-20); Aspartate Amino Transferase 18 U/L (5-31); Bilirubin Total 0.9 mg/dL (0.0-1.0); Blood Urea Nitrogen 9 mg/dL (9-16); Calcium 8.6 mg/dL (8.4-10.2); Carbon Dioxide 25 mmol/L (22-29); Chloride 108 mmol/L (96-108); Cholesterol 156 mg/dL (<200); Estimated Glomerular Filt Rate > 60; Glucose Random 105 mg/dL (60-115); HDL Cholesterol 38 mg/dL (>40); Iron 85 mcg/dL (30-160); LDL Cholesterol Calculated 93 mg/dL (<100); Percent Iron Saturation 27 % (15-50); Potassium 3.9 mmol/L (3.3-5.1); Sodium 139 mmol/L (135-145); Total Iron Binding Capacity 315 mcg/dL (228-428); Total Protein 7.1 g/dL (6.5-8.0); Triglycerides 127 mg/dL (<150); Unsaturated Iron Binding 230 ug/dL
[2024-04-09 12:09] LABS: HBS Num1 1.48 mIU/mL (0-7.99); HBc Num1 0.18 S/CO (0.00-0.79); HBsAGNum1 0.38 S/CO (0.00-0.99); HIV AB/AG Nonreactive (Nonreactive); HIV Num 1 0.07 S/CO (0.00-0.99); Hepatitis B Core Antibody Nonreactive (Nonreactive); Hepatitis B Surface Antigen Negative (Negative); ~HepC Num1 0.19 S/CO (0.00-0.79); ~Hepatitis B Surface Antibody NONREACTIVE (Nonreactive); ~Hepatitis C Antibody Nonreactive (Nonreactive)
[2024-04-09 12:10] LABS: Syphilis Screen Nonreactive (Nonreactive)
[2024-04-09 12:22] LABS: Ferritin 43 ng/mL (10-250); TSH reflex Free T4 1.36 uIU/mL (0.32-4.0)
[2024-04-09 17:20] LABS: CT PCR NOT DETECTED (Not Detect.); NG PCR NOT DETECTED (Not Detect.)
== END 2024-04-09 09:37 | disposition home or self-care (01) ==
LOC: HO.HHCL 09:36
PROVIDERS: Visit Provider Student in an Organized Health Care Education/Training Program
DX: Z00.00 Encounter for general adult medical examination without abnormal findings (principal); D50.9 Iron deficiency anemia, unspecified
CPT/HCPCS: 36415; 80053; 80061; 82728; 83036; 83540; 84443; 85027; 86704; 86706; 86780; 86803; 87340; 87389; 87491; 87591

== ENCOUNTER 2024-04-27 08:42 | Outpatient (REF) | payer MEDICAID, SELFPAY | END 2024-04-27 08:43 | disposition home or self-care (01) | LOC: HO.LNP 08:42 | PROVIDERS: PCP Student in an Organized Health Care Education/Training Program; Visit Provider Obstetrics & Gynecology | DX: D25.9 Leiomyoma of uterus, unspecified (principal); N93.9 Abnormal uterine and vaginal bleeding, unspecified | CPT/HCPCS: 81025; 88305; 99212 ==

== ENCOUNTER 2024-04-27 08:42 | Outpatient (AMB) | payer MEDICAID, SELFPAY ==
--- NOTE | 2024-04-27 08:42 | MHC.OFFVIS ---
Vital Signs 04/27/24 08:48 Height 5 ft 7 in BP 120/72 Intake Visit Reasons: US follow up/IUD check/DO NOT RS Intake Note: Patient considering removal of IUD, swelling and back pain since IUD insert Steamer Blocker Required: Yes Steamer Blocker Language: Drupal Programmer Services: Steamer Blocker Present (in person) Steamer Blocker Name: KAYLA Alfredo Information Interpreted: non-clinical & clinical Founder And Chief Technical Officer: Founder And Chief Technical Officer Present (Heather Michaela Gentile KAYLA) Accompanied by: Self / Same As Patient Allergies divalproex sodium Adverse Reaction (Verified 04/27/24 08:51) Unknown HPI Comments Details: The patient is presenting for IUD check 4 months following IUD insertion. 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 Size: 8.5 x 5.4 x 6.4 cm. Uterine mass: Intramural uterine masses likely fibroids measuring up to 2.5 cm, 1.3 cm and 1.6 cm, not significantly changed allowing for interobserver variability. Cervix: Grossly unremarkable. Endometrium: No ultrasound evidence of endometrial lesion. endometrial thickness measures 0.[address] properly positioned. ADNEXA: Prominent vessels around the left adnexa, cannot rule out pelvic congestion. Right ovary: Normal in size. Left ovary: Normal in size. Doppler exam: Normal Doppler flow identified in both ovaries. FREE FLUID: Trace amount of free fluid. OTHER FINDINGS: None PFSH Medical History Diverticulosis AIN grade III COVID-19 vaccine series completed Anal lesion Constipation Vitamin D deficiency Non-refractory epilepsy Surgical History Tubal ligation status History of surgical removal of lesion Hx of colonoscopy History of lumpectomy of right breast History of appendectomy Hx of cholecystectomy Family History Father Heart muscle disorder caused by another medical condition Social History Household Members: Spouse and Children Housing: House Alcohol intake: never Patient Tobacco Use Status: Never used Tobacco Current occupational status: unemployed Sexual orientation: Straight/Heterosexual Gender identity: Female Female Reproductive History Menstrual Date of last menstrual period: 04/24/24 control method: progestin IUCD (Mirena) Review of Systems Const All systems reviewed & are unremarkable except as noted in HPI and below Reports as per HPI and Reports no additional complaints GI Reports no additional complaints Reports no additional complaints Physical Exam Vital Signs: Last Vital Signs BP 120/72 04/27/24 08:48 General: Yes no CVA tenderness External Female Exam: normal external appearance and normal appearance of the urethra Speculum Exam - Vagina: normal appearance of the vagina, normal palpation, no lesions and no masses Speculum Exam - Cervix: normal appearance of the cervix, normal palpation, no lesions, no masses, nontender and Other cervical findings present (IUD thread in place) Bimanual exam- vagina & uterus: normal bimanual exam, normal palpation, uterine size normal, normal palpation, uterine shape normal, No Cervical tenderness present and non-tender Bimanual Exam- Adnexa, other: normal adnexae Back/Spine/Pelvis Back: no CVA tenderness Results AMB Test Urine AMB Test Urine Negative Last Edit by Michaela Gentile CMA on 04/27/24 08:52 Assessment & Plan Assessment & Plan (1) Uterine myoma: Code(s): D25.9 - Leiomyoma of uterus, unspecified Category: Medical Plan: Discussed with the patient the results of the ultrasound and the size of the myomas. Discussed with the patient risk of myosarcoma and symptoms that are caused by myomas including but not limited to pelvic pain, pressure symptoms, abnormal uterine bleeding. In addition discussed with the patient options of treatment for myomas including: Serial ultrasounds periodically to follow-up on the size of the myoma while targeting the treatment against fibroids related symptoms ( control pills, Mirena IUD, progesterone treatment, GnRH agonist/antagonist, uterine artery embolization or endometrial ablation) versus surgical treatment including hysterectomy and or myomectomy. All pros and cons, risks and benefits of all options were discussed with the patient. The patient understands that delay in surgical treatment in case of myosarcoma can affect her prognosis, after further discussion, the patient decided to think about it and get back to us next visit (2) Abnormal uterine bleeding (AUB): Comment: Persistent on Mirena IUD Code(s): N93.9 - Abnormal uterine and vaginal bleeding, unspecified Category: Medical Plan: UPT done in the office was negative. Since last EMB was in 07/27, recommended repeat EMB, EMB done, see procedure note. Instructions given the patient to schedule a follow-up appointment within 1-2 week to discuss different options of treatment with possible Mirena IUD removed. All questions answered, the patient verbalized understanding Orders: Orders AMB HCG Urine Test Today Z32.02 - Encounter for test, result negative US pelvic and transvaginal 1 Year D25.9 - Leiomyoma of uterus, unspecified Coding Level of Care Code Est Pt Level 3 (82517) Diagnoses Uterine myoma D25.9 Abnormal uterine bleeding (AUB) N93.9
[2024-04-27 08:48] VITALS: BP 120/72
== END 2024-04-27 09:14 | disposition home or self-care (01) ==
LOC: HO.HWS 08:42
PROVIDERS: PCP Student in an Organized Health Care Education/Training Program; Visit Provider Obstetrics & Gynecology
DX: D25.9 Leiomyoma of uterus, unspecified (principal); N93.9 Abnormal uterine and vaginal bleeding, unspecified; Z32.02 Encounter for pregnancy test, result negative
CPT/HCPCS: 99213

== ENCOUNTER 2024-05-08 14:31 | Outpatient (AMB) | payer MEDICAID, SELFPAY ==
[2024-05-08 14:33] VITALS: BMI 24.0
--- NOTE | 2024-05-08 14:33 | A.OFFVIS_ITS ---
Vital Signs 05/08/24 14:33 Height 5 ft 7 in Weight 153 lb BMI 24.0 Intake Visit Reasons: EMB results/? pre op for ablation Equine Manager Required: Yes Equine Manager Language: Machine Bobbin Winder Services: Equine Manager Present (in person) Equine Manager Name: Michaela GARZA Information Interpreted: non-clinical & clinical Warehouse Examiner: Warehouse Examiner Present Accompanied by: Self / Same As Patient Allergies divalproex sodium Adverse Reaction (Verified 05/08/24 14:45) Unknown Is last menstrual period known: Yes Last menstrual period: 03/31/20 Post menopausal: No Patient : No Do you need a note to return to daycare/school/sports/work: Yes (for surgery on saturday) HPI Comments Details: The patient is presenting for follow-up to discuss the results of her abnormal uterine bleeding workup and options of treatment. The following workup was done.: H&H= 12.9/38.8 TSH, hCG, GC and chlamydia were negative. Endometrial biopsy pathology showed the following: Benign endometrium with extensive pseudodecidual change, patchy necrosis and breakdown, consistent with exogenous progestin; no atypia or hyperplasia present Co testing was done was negative. Mammogram was BI-RADS 2 Pelvic ultrasound showed the following: UTERUS: The uterus is anteverted. Size: 8.5 x 5.4 x 6.4 cm. Uterine mass: Intramural uterine masses likely fibroids measuring up to 2.5 cm, 1.3 cm and 1.6 cm, not significantly changed allowing for interobserver variability. Cervix: Grossly unremarkable. Endometrium: No ultrasound evidence of endometrial lesion. endometrial thickness measures 0.[address] properly positioned. ADNEXA: Prominent vessels around the left adnexa, cannot rule out pelvic congestion. Right ovary: Normal in size. Left ovary: Normal in size. Doppler exam: Normal Doppler flow identified in both ovaries. [facility] Medical History Diverticulosis AIN grade III COVID-19 vaccine series completed Anal lesion Constipation Vitamin D deficiency Non-refractory epilepsy Surgical History Tubal ligation status History of surgical removal of lesion Hx of colonoscopy History of lumpectomy of right breast History of appendectomy Hx of cholecystectomy Family History Father Heart muscle disorder caused by another medical condition Social History Household Members: Spouse and Children Housing: House Alcohol intake: never Patient Tobacco Use Status: Never used Tobacco Current occupational status: unemployed Sexual orientation: Straight/Heterosexual Gender identity: Female Female Reproductive History Menstrual Date of last menstrual period: 03/31/20 Total pregnancies: 2 Full term: 2 Review of Systems Card Reports as per HPI and Reports no additional complaints Resp Reports as per HPI and Reports no additional complaints GI Reports as per HPI and Reports no additional complaints Reports as per HPI Physical Exam Vital Signs: BMI result Body Mass Index 24.0 Const General: cooperative, healthy appearing and comfortable Resp Effort & Inspection: normal respiratory effort Auscultation: clear to auscultation bilaterally Percussion: percussion normal Cardio Palpation: normal PMI Rate: regular rate Rhythm: regular rhythm Heart sounds: no murmurs and no rubs Peripheral pulses: Peripheral pulses 2+ throughout GI Inspection: Yes normal to inspection Palpation (GI): Soft to palpation, nontender, no guarding, not rigid and No hepatosplenomegaly present Percussion: Yes normal to percussion Auscultation: normal bowel sounds Rectal Exam - Female: deferred Assessment & Plan Assessment & Plan (1) Abnormal uterine bleeding (AUB): Comment: Persistent on Mirena IUD Uterine myoma Code(s): N93.9 - Abnormal uterine and vaginal bleeding, unspecified Category: Medical Plan: Discussed with the patient the results of the work up done and options of treatment including Lysteda, BCP's, Mirena IUD, endometrial ablation and hysterectomy. All pros, cons, risks and benefits if each option was discussed with the patient and the patient decided to go ahead with endometrial ablation. so a more detailed discussion about the procedure was conducted including mechanism of action, effectiveness and its potential failure rate in the coming 3-5 years, its risks (initial or future failure of AUB control, uterine perforation, infection, injury to bladder, bowel, ureter, and blood vessels, possible need for blood transfusion, inability to access the uterine cavity in order to sample the endometrial cavity to rule out endometrial pathology including endometrial cancer and others), post ablation syndrome, benefits ( hypomenorrhea, amenorrhea, ...) . The patient verbalized understanding and signed the consent. Will schedule Novasure endometrial ablation with Mirena IUD removal. In addition, the patient understands that although the endometrial ablation is not a method of control it will decrease markedly her chance of getting . The patient verbalized understanding and agreed with the plan. Medications: Discontinued tranexamic acid Start 1st day of menses and take it up to 3-5 days of menses. Discontinued Reason: Doctor's Order 1,300 mg (2 x 650 mg) PO TID 5 days 30 tabs 2RF Coding Level of Care Code Est Pt Level 3 (92664) Diagnoses Abnormal uterine bleeding (AUB) N93.9
== END 2024-05-08 15:38 | disposition home or self-care (01) ==
PROVIDERS: PCP Student in an Organized Health Care Education/Training Program; Visit Provider Obstetrics & Gynecology
DX: N93.9 Abnormal uterine and vaginal bleeding, unspecified (principal)
CPT/HCPCS: 99213

== ENCOUNTER → 2024-05-08 14:31 | Outpatient (BNVA) | payer MEDICAID, SELFPAY | PROVIDERS: PCP Student in an Organized Health Care Education/Training Program; Visit Provider Obstetrics & Gynecology | DX: N93.9 Abnormal uterine and vaginal bleeding, unspecified (principal) | CPT/HCPCS: 99212 ==

== ENCOUNTER 2024-05-15 07:10 | Day surgery (SDC) | payer MEDICAID, SELFPAY ==
[2024-05-13 11:00] VITALS: BMI 23.6
--- NOTE | 2024-05-13 11:47 | HO.ANESPROP2 ---
Documented by User: Alyssa Barr NP 05/13/24 11:47 HPI - Anesthesia Eval Consult details Narrative: 49yo F for Uterine Ablation w/Novasure,IUD Removal PMFSH Active Problems Active Problems: All Active Problems IUD check up (Acute) Encounter for IUD insertion (Acute) Uterine myoma (Acute) Abnormal uterine bleeding (AUB) (Acute) Perianal wart (Acute) Diverticulosis (Acute) AIN grade III (Acute) Anal lesion (Acute) Past Medical History Medical History Hx of seizure disorder Diverticulosis AIN grade III COVID-19 vaccine series completed Anal lesion Constipation Vitamin D deficiency Non-refractory epilepsy Family History Family History Father Heart muscle disorder caused by another medical condition Family history of problems with anesthesia: No Surgical History Surgical History Tubal ligation status History of surgical removal of lesion Hx of colonoscopy History of lumpectomy of right breast History of appendectomy Hx of cholecystectomy History of Problems with Anesthesia: No Social History Social History Household Members: Spouse and Children Housing: House Are you a primary pharmacy customer care specialist to a significant other at home: No Do you presently have visiting nurse or other home services: No Alcohol intake: never Patient Tobacco Use Status: Never used Tobacco Use of substances other than those prescribed or required for medical reasons: No Have you been hit, kicked, punched, or otherwise hurt by someone within the past year? If so, by whom?: No Are you DNR?: No Advance Directives: No Advance Directives Information Provided: Yes Recently lost weight without trying: No Nutrition Risks: No Nutritional Risk Patient : No FDLMP: irregular : No Poor oral hygiene: No Current occupational status: unemployed Sexual orientation: Straight/Heterosexual Gender identity: Female Meds Allergies Allergy/AdvReac Type Severity Reaction Status Date / Time divalproex sodium AdvReac Unknown Verified 05/15/24 07:47 Home Medications ?Medication ?Instructions ?Recorded ?Confirmed ?Last Taken ?Type levetiracetam 250 mg tablet 250 mg PO QAM 03/02/21 05/13/2424 06:30 History (Keppra) lamotrigine 100 mg tablet 100 mg PO DAILY 03/03/21 05/13/24 05/15/24 06:30 History levetiracetam 250 mg tablet 500 mg PO BEDTIME 05/13/24 05/13/24 Unknown History Exam Height,Weight and Vital Signs: Height 5 ft 7 in Weight 68.492 kg Assessment and Plan Assessment Anesthesia Assessment: Chart Reviewed Final Anesthetic Review Family History of Problems with Anesthesia: No History of Problems with Anesthesia: No Documented by User: Melvin Hamm MD 05/15/24 09:12 PMFSH Past Medical History Medical History Hx of seizure disorder Diverticulosis AIN grade III COVID-19 vaccine series completed Anal lesion Constipation Vitamin D deficiency Non-refractory epilepsy Patient : No Family History Family History Father Heart muscle disorder caused by another medical condition Surgical History Surgical History Tubal ligation status History of surgical removal of lesion Hx of colonoscopy History of lumpectomy of right breast History of appendectomy Hx of cholecystectomy Social History Social History Household Members: Spouse and Children Housing: House Are you a primary pharmacy customer care specialist to a significant other at home: No Do you presently have visiting nurse or other home services: No Alcohol intake: never Patient Tobacco Use Status: Never used Tobacco Use of substances other than those prescribed or required for medical reasons: No Have you been hit, kicked, punched, or otherwise hurt by someone within the past year? If so, by whom?: No Are you DNR?: No Advance Directives: No Advance Directives Information Provided: Yes Recently lost weight without trying: No Nutrition Risks: No Nutritional Risk Patient : No FDLMP: irregular : No Poor oral hygiene: No Current occupational status: unemployed Sexual orientation: Straight/Heterosexual Gender identity: Female Meds Allergies Allergy/AdvReac Type Severity Reaction Status Date / Time divalproex sodium AdvReac Unknown Verified 05/15/24 07:47 Home Medications ?Medication ?Instructions ?Recorded ?Confirmed ?Last Taken ?Type levetiracetam 250 mg tablet 250 mg PO QAM 03/02/21 05/13/24 05/15/24 06:30 History (Kecarlo) lamotrigine 100 mg tablet 100 mg PO DAILY 03/03/21 05/13/24 05/15/24 06:30 History levetiracetam 250 mg tablet 500 mg PO BEDTIME 05/13/24 05/13/24 Unknown History Exam Airway Mallampati Class: II TM Dist: <=3cm Neck ROM: Full Loose/Missing/Broken Teeth: No Heart: ok Lungs: ok Assessment and Plan Assessment Anesthesia Assessment: Anesthesia Plan Discussed Final Anesthetic Review NPO: Yes ASA Class: III Final Preanesthetic Review: No Changes in Pt Med Stat, Meds/Allgs Chart Reviewed, Consent Obtained/Reviewed and Anes Risks/Benef Reviewed Patient Risk: Intermediate Procedure Risk: Low Anesthetic Plan Anesthetic Plan: GA and Agree w/ Assess. and Plan Disposition: Standard PACU
[2024-05-15 07:55] VITALS: BP 138/81; PULSE 74; RESP 15; TEMP 36.7; O2SAT 98
[2024-05-15 08:03] LABS: UPreg QC Valid YES; Urine Pregnancy NEGATIVE (NEGATIVE)
[2024-05-15] MEDS: Lactated Ringers 1,000 ML 100 ML IVCONT (08:08)
--- NOTE | 2024-05-15 08:54 | MHC.SHP ---
Pre-Procedural Eval Section A - 24 Hr Update-Section A only Date of Service: 05/15/24 The patient is an INPATIENT: No Changes since office visit: No Cold of Flu in the past 2 weeks, No New Medical Problems, No Changes in Medication and No Patient answered all questions The patient has been examined within 24 hours of the surgical procedure. The History & Physical has been completed within 30 days and I have reviewed it.: Yes Section B - Complete if H&P > 30 days Chief Complaint: Abnormal uterine and vaginal bleeding, unspecified Allergies: Allergies Allergy/AdvReac Type Severity Reaction Status Date / Time divalproex sodium AdvReac Unknown Verified 05/15/24 07:47 Plan Diagnosis/Plan: Unchanged I have reviewed the history and physical and performed a pertinent physical examination on my patient. No changes have occurred unless specified. Time Spent With Patient Time: Total time managing care of this patient today ____ minutes.
[2024-05-15 09:41] VITALS: BP 131/75; PULSE 79; RESP 16; TEMP 36.2; O2SAT 96
--- NOTE | 2024-05-15 09:41 | PM.OP ---
Brief Operative Note Date of Service: 05/15/24 Pre-op diagnosis: Abnormal uterine bleeding, IUD in utero Post-op diagnosis: same Procedure: Mirena IUD removal, NovaSure Endometrial Ablation Surgeon: Tu Mendez MD Anesthesia: GLMA Was an Refinery Operator Coking used for this Procedure?: No Estimated blood loss (mL): 0 Pathology: other (Mirena IUD) Condition: stable Disposition: PACU
--- NOTE | 2024-05-15 09:42 | W.PM.OPN ---
Operative Note Operative Note Date of Service: 05/15/24 Narrative: Preop diagnosis: IUD in utero, Abnormal uterine bleeding Post Op Diagnosis: Same Op: Novasure Endometrial Ablation, Mirena IUD removal Anesthesia: GLMA Radio Interference Trouble Shooter: None QBL: Minimal Pathology: None Complications: None Procedure: The patient was put in the dorsal lithotomy position. She was prepped and draped in the usual sterile manner. Bimanual exam prior to prepping revealed a mobile, anteverted uterus. A speculum was placed in the vagina and the anterior lip of the cervix was grasped with a single toothed tenaculum and brought forward. Mirena IUD string was identified, grasped with a long Usha clamp and pulled out of the uterine cavity without any complications. Taking care not to enter deep into the uterus, a sound was passed inside to measure the length of the uterus and cervix. This length was found to be 8 cm. Next, Hegar dilator was inserted into the cervical os to measure the cervical length which was 3 cm. This yielded an endometrial cavity length of 6.5 cm. A series of Hegar dilators were then inserted sequentially into the cervical os up to a size of 5 mm. The Novasure device was then opened and tested; the fan deployed easily. The instrument was set to the correct cavity length and introduced into the uterine cavity. The fan was slowly deployed with gentle movements to ensure a snug fit within the cavity. The cavity width read 4.5 cm. The measurements were imported and a cavity check was done. The trumpet was then slid down to the cervix and the device was activated. The total burn time was 91 seconds. The fan was retracted and device removed. The fan was examined and revealed charred tissue. The tenaculum was removed and the cervix examined for hemostasis which was achieved using pressure. Finally the speculum was removed. The patient tolerated the procedure well and was brought to the recovery room in a stable condition. At the end of the procedure all sponges and instruments were counted and correct. The blood loss was minimal and there were no complications.
[2024-05-15 09:45] VITALS: BP 123/70; PULSE 69; RESP 16; O2SAT 96
[2024-05-15 09:50] VITALS: BP 122/71; PULSE 65; RESP 16; O2SAT 96
[2024-05-15 09:55] VITALS: BP 117/73; PULSE 64; RESP 16; O2SAT 97
[2024-05-15 10:11] VITALS: BP 119/73; PULSE 67; RESP 18; TEMP 36.1; O2SAT 100
== END 2024-05-15 10:50 | disposition home or self-care (01) ==
PROVIDERS: PCP Student in an Organized Health Care Education/Training Program; Visit Provider Obstetrics & Gynecology
PROC: (CPT 58563; principal; 2024-05-15 09:30)
DX: N93.9 Abnormal uterine and vaginal bleeding, unspecified (principal); Z97.5 Presence of (intrauterine) contraceptive device; G40.909 Epilepsy, unspecified, not intractable, without status epilepticus; Z86.004 Personal history of in-situ neoplasm of other and unspecified digestive organs; K57.30 Diverticulosis of large intestine without perforation or abscess without bleeding; E55.9 Vitamin D deficiency, unspecified; Z79.899 Other long term (current) drug therapy; Z88.8 Allergy status to other drugs, medicaments and biological substances; Z98.51 Tubal ligation status; Z98.890 Other specified postprocedural states; Z56.0 Unemployment, unspecified
CPT/HCPCS: 58563; 58301; 81025; 88300; J1885; J2003; J2405; J2704; J3010

== ENCOUNTER → 2024-05-15 07:10 | Outpatient (BNV) | payer MEDICAID, SELFPAY | PROVIDERS: PCP Student in an Organized Health Care Education/Training Program; Visit Provider Obstetrics & Gynecology | DX: N93.9 Abnormal uterine and vaginal bleeding, unspecified (principal) | CPT/HCPCS: 58563 ==

== ENCOUNTER 2024-06-09 14:03 | Outpatient (AMB) | payer MEDICAID, SELFPAY ==
--- NOTE | 2024-06-09 14:10 | MHC.OFFVIS ---
Vital Signs 06/09/24 14:13 Height 5 ft 7 in Weight 153 lb BMI 24.0 Intake Visit Reasons: post op Canceling And Cutting Control Clerk Required: Yes Canceling And Cutting Control Clerk Language: Air Boatsw[employer] Services: Canceling And Cutting Control Clerk Present (in person) Canceling And Cutting Control Clerk Name: Michaela GARZA Information Interpreted: non-clinical & clinical Accompanied by: Self / Same As Patient Allergies divalproex sodium Adverse Reaction (Verified 06/09/24 14:14) Unknown HPI Comments Details: The patient is presenting post Novasure Endometrial Ablation and Mirena IUD removal. No complaints minimal vaginal bleeding no feverishness chills or abdominal pain. [facility] Medical History Hx of seizure disorder Diverticulosis AIN grade III COVID-19 vaccine series completed Anal lesion Constipation Vitamin D deficiency Non-refractory epilepsy Surgical History Tubal ligation status History of surgical removal of lesion Hx of colonoscopy History of lumpectomy of right breast History of appendectomy Hx of cholecystectomy Family History Father Heart muscle disorder caused by another medical condition Social History Household Members: Spouse and Children Housing: House Are you a primary childcare aide to a significant other at home: No Do you presently have visiting nurse or other home services: No Alcohol intake: never Patient Tobacco Use Status: Never used Tobacco Current occupational status: unemployed Sexual orientation: Straight/Heterosexual Gender identity: Female Review of Systems Const All systems reviewed & are unremarkable except as noted in HPI and below Reports as per HPI and Reports no additional complaints GI Reports no additional complaints Reports no additional complaints Physical Exam Vital Signs: BMI result Body Mass Index 24.0 Assessment & Plan Assessment & Plan (1) Abnormal uterine bleeding (AUB): Code(s): N93.9 - Abnormal uterine and vaginal bleeding, unspecified Category: Medical Plan: Discussed with the patient Novasure endometrial ablation intraoperative findings. In addition, discussed with the patient the expectations in the post operative period. Instruction given to patient to wait 2- 3 months and call if her menses are not satisfactory. Also discussed with the patient that although NovaSure endometrial ablation decreases the risk of , it is certainly not a method of control. All questions answered, the patient verbalized understanding and all questions answered . Coding Level of Care Code Est Pt Level 3 (91099) Diagnoses Abnormal uterine bleeding (AUB) N93.9
[2024-06-09 14:13] VITALS: BMI 24.0
== END 2024-06-09 14:30 | disposition home or self-care (01) ==
LOC: HO.HWS 14:03
PROVIDERS: PCP Student in an Organized Health Care Education/Training Program; Visit Provider Obstetrics & Gynecology
DX: N93.9 Abnormal uterine and vaginal bleeding, unspecified (principal)
CPT/HCPCS: 99213

== ENCOUNTER → 2024-06-09 14:03 | Outpatient (BNVA) | payer MEDICAID, SELFPAY | PROVIDERS: PCP Student in an Organized Health Care Education/Training Program; Visit Provider Obstetrics & Gynecology | DX: N93.9 Abnormal uterine and vaginal bleeding, unspecified (principal); Z98.890 Other specified postprocedural states | CPT/HCPCS: 99212 ==

== ENCOUNTER 2024-09-14 09:16 | Outpatient (AMB) | payer MEDICAID, SELFPAY ==
--- NOTE | 2024-09-14 09:17 | MHC.OFFVIS ---
Intake Visit Reasons: yearly anal carcinoma Intake Note: Patient is seen in office for one year follow up visit, following anal carcinoma.Patient is seen in office for one year follow up visit, following anal carcinoma. Pt c/o: Pt c/o: continued constipation, the other day was exercising and experiencing abdominal pain and pain in the anus, denies blood in stool or other concerns Guard Dance Hall Required: No Accompanied by: Self / Same As Patient Allergies divalproex sodium Adverse Reaction (Verified 09/14/24 09:27) Unknown Medication List - Last Reconciled 09/14/24 by Elvin Smith MD lamotrigine 100 mg PO DAILY levetiracetam 500 mg PO BEDTIME levetiracetam (Keppra) 250 mg PO QAM HPI HPI yearly anal carcinoma: Details: She is here for follow-up for her history of AIN 3. This was seen on a polypoid lesion removed 3 years ago. The margins were negative . She denies any complaints at this time. She does describe having an episode of lower abdominal pain and rectal pain two weeks ago after exercising. She denies any problems with anal pain, or bleeding. [facility] Medical History (Updated 09/14/24 @ 09:39 by Elvin Smith MD) History of anal dysplasia Hx of seizure disorder Diverticulosis AIN grade III COVID-19 vaccine series completed Anal lesion Constipation Vitamin D deficiency Non-refractory epilepsy Surgical History Tubal ligation status History of surgical removal of lesion Hx of colonoscopy History of lumpectomy of right breast History of appendectomy Hx of cholecystectomy Family History Father Heart muscle disorder caused by another medical condition Social History Household Members: Spouse and Children Housing: House Are you a primary career development engineer to a significant other at home: No Do you presently have visiting nurse or other home services: No Alcohol intake: never Patient Tobacco Use Status: Never used Tobacco Current occupational status: unemployed Sexual orientation: Straight/Heterosexual Gender identity: Female Review of Systems Const Denies chills and Denies fever(s) Card Denies chest pain, Denies dyspnea and Denies dyspnea on exertion Resp Denies cough, Denies dyspnea and Denies dyspnea on exertion GI Denies hematochezia and Denies change in bowel habits Denies hematuria Musc Denies back pain and Denies limited range of motion Neuro Denies focal weakness and Denies convulsions Psych Denies depression and Denies mood swings Physical Exam Const General: comfortable and no acute distress Orientation/consciousness: patient oriented x3 Neck Neck: Yes no lymphadenopathy Resp Auscultation: clear to auscultation bilaterally Cardio Rhythm: regular rhythm GI Other: Rectal exam is exam shows no perianal lesions Palpation (GI): Soft to palpation, nontender and no guarding Neuro General: patient oriented x3 Office Procedures Anoscopy She was in michele-knife position. The anoscope was gently inserted. A full examination of the anal canal was done. There were no lesions seen. There was no suspicious or abnormal looking mucosa. There was no bleeding. There was no fissure ulceration. There was no induration on digital exam. [id number] Assessment & Plan Assessment & Plan (1) History of anal dysplasia: Code(s): Z87.19 - Personal history of other diseases of the digestive system Category: Medical Plan: She had AIN III 3 years ago seen on a hemorrhoidectomy specimen. Current anoscopic exam does not have reveal any abnormal lining of the anal canal nor any lesion I assured her about my findings. I told her that I will continue with really anoscopies for her in view of the AIN 3. She is comfortable with the plan. Coding Level of Care Code Est Pt Level 3 (40274) Diagnoses History of anal dysplasia Z87.19 CPT Codes Details - CPT: 80859-[id number] ([id number])
--- OUTSIDE RECORDS SUMMARY | 2024-09-14 10:15 | XMS_ITS | Encounter Summary ---
Author Organization [employer] Address [address] [place] [address] [place] [address] Care Team Providers Care Breast Splitter Name Role Phone Pamela Moreno Primary Care Provider [phone] Leila Tomlinson MD Primary Care Pro vider Reason for Visit * Reason Comments Med Refill Encounter Details Date Type Department Care Team (Late st Contact Info) Description 08/27/2022 Refill [facility] [address] [place] [address] [phone] Pamela Moreno FNP [address] [place], [place] [phone] Nonintractable epilepsy without status epilepticus, unspecified epilepsy type (CMS/HCC) Social History Tobacco Use Types Packs/Day Years Used Date Smoking Tobacco: Never Assessed Comments Unknown Sex and Gender Information Value Date Recorded Sex Assigned at Female 04/02/2022 10:22 AM EDT Legal Sex Female 10:22 AM EDT Gender Identity Female 04/02/2022 10:22 AM EDT Sexual Orientation Straight 01/22/2023 10 :25 AM EDT documented as of this encounter Plan of Treatment Upcoming Encounters Date Type Department Care Team (Late st Contact Info) Description 10/16/2024 9:30 AM EDT Office Visit [facility] [address] [place] [address] [phone] Leila Tomlinson MD [address] [place], [place] [phone] 10/21/2024 9:00 AM EDT Immunization [facility] [address] [place] [phone] documented as of this encounter Visit Diagnoses Diagnosis Nonintractable epilepsy without status epilepticus, unspecified epilepsy type (CMS/HCC) documented in this encounter Care Teams Breast Splitter Relationship Specialty Start Date End Date Pamela Moreno FNP [address] [place] [address] PCP - General Family Medicine 01/29/22 11/13/22 Leila Tomlinson MD [address] [place] [address] PCP - General Internal Medicine 11/14/22 documented as of this encounter
--- OUTSIDE RECORDS SUMMARY | 2024-09-14 10:16 | XMS_ITS | Clinical Summary ---
Author Organization [facility] it Address [address] [place] [address] Care Team Providers Care Craft Coordinator Name Role Phone Unavailable Primary Care Provider Unavailabl e Social History Tobacco Use Types Packs/Day Years Used Date Smoking Tobacco: Never Assessed Comments Unknown Sex and Gender Information Value Date Recorded Sex Assigned at Not on file Legal Sex Female 4:38 AM EST Gender Identity Not on file Sexual Orientation Not on file Plan of Treatment Health Maintenance Due Date Last Done Comments Breast Cancer Screening 1975 DTaP,Tdap,and Td Vaccines (1 - Tdap) 1994 Hepatitis B Vaccines (1 of 3 - 19+ 3-dose series) 1994 Cervical Cancer Screening: P ap Smear 1996 COVID-19 Vaccine (2023-2 5 season) 2024 Influenza Vaccine (Season Ended) 2025 HIB Vaccines Aged Out No longer eligi ble based on patient's age to complete this topic HPV Vaccines Aged Out No longer eligi ble based on patient's age to complete this topic Hepatitis A Vaccines Aged Out No long er eligible based on patient's age to complete this topic IPV Vaccines Aged Out No longer eligi ble based on patient's age to complete this topic MMR Vaccines Aged Out No longer eligi ble based on patient's age to complete this topic Meningococcal ACWY Vaccine Aged Out N o longer eligible based on patient's age to complete this topic Meningococcal B Vaccine Aged Out No l onger eligible based on patient's age to complete this topic Pneumococcal Vaccine: Pediat rics (0 to 5 Years) and At-Risk Patients (6 to 64 Years) Aged Out No longer eligible b ased on patient's age to complete this topic RSV Immunization Patients Un sandhya 20 months Aged Out No longer eligible b ased on patient's age to complete this topic Varicella Vaccines Aged Out No longer eligible based on patient's age to complete this topic
--- OUTSIDE RECORDS SUMMARY | 2024-09-14 10:16 | XMS_ITS | Encounter Summary ---
Author Organization [employer] Address [address] [place] [address] [address] [place] [address] Care Team Providers Care Numerical Control Nesting Operator Name Role Phone Leila Tomlinson MD Primary Care Pro vider Reason for Visit * Reason Comments Med Refill Encounter Details Date Type Department Care Team ([facility] st Contact Info) Description 10/15/2023 Refill [facility] [address] [place], [place] [phone] Leila Tomlinson MD [address] [place] [address] Social History Tobacco Use Types Packs/Day Years Used Date Smoking Tobacco: Never Passive Smoke Exposure: Never Smokeless Tobacco: Never Alcohol Use Standard Drinks/Week Comments Never 0 (1 standard drink = 0.6 oz pur e alcohol) Depression Answer Date Recorded Patient Health Questionnaire-9 Score 5 02/25/2023 Housing Stability Answer Date Recorded What is your housing situation today? I have johannileana wagner 03/19/[address] you li ve. Do you have problems with any of the following? None of the above 03/19/2023 Food Insecurity Answer Date Recorded Within the past 12 months, y ou worried that your food would run out before you got money to buy more: Never True 03/19/2023 Within the past 12 months,th e food you bought just didn't last and you didn't have enough money to get more: Never True Transportation Answer Date Recorded In the past 12 months, has l ack of transportation kept you from medical appts, meetings, work or from getting things needed for daily living? No 03/19/2023 Utilities Answer Date Recorded In the past 12 months, has t he electric, gas, oil or water company threatened to shut off services in your home? No 03/19/2023 Depression Answer Date Recorded Patient Health Questionnaire-2 Score 1 02/25/2023 Comments No Sex and Gender Information Value Date Recorded Sex Assigned at Female 04/02/2022 10:22 AM EDT Legal Sex Female 10:22 AM EDT Gender Identity Female 04/02/2022 10:22 AM EDT Sexual Orientation Straight 01/22/2023 10 :25 AM EDT documented as of this encounter Plan of Treatment Upcoming Encounters Date Type Department Care Team (Late st Contact Info) Description 10/16/2024 9:30 AM EDT Office Visit [facility] [address] [place] [address] [phone] Leila Tomlinson MD [address] [place] [phone] 10/21/2024 9:00 AM EDT Immunization [facility] [address] [place] [phone] documented as of this encounter Visit Diagnoses Not on filedocumented in this encounter Additional Health Concerns Assessment Noted Time PHQ-9 Depression Total Score: 5 02/26/20 23 11:44 AM EDT documented as of this encounter Care Teams Numerical Control Nesting Operator Relationship Specialty Start Date End Date Leila Tomlinson MD [address] [place] [phone] PCP - General Internal Medicine 11/14/22 documented as of this encounter
--- OUTSIDE RECORDS SUMMARY | 2024-09-14 10:16 | XMS_ITS | Clinical Summary ---
Author Organization [employer] Address [address] [place] [address] 7 [place] [address] Care Team Providers Care Glaze Handler Name Role Phone Leila Tomlinson MD Primary Care Pro vider Allergies Active Allergy Reactions Criticality Noted Date Comments Valproic Acid 12/14/2020 Other reaction(s): Panic attacks Medications * This document contains information received from the source organization and may not represent a complete record from that organization. lamoTRIgine (LaMICtal) 100 MG tabletIndication s:Nonintractable epilepsy without status epilepticus, unspecified epilepsy type (CMS/HCC) Take 1 tablet (100 mg) by mouth in the morning. 30 tablet 1 3 Active Iron, Ferrous Sulfate, 325 (65 Fe) MG tablet Take 1 tablet by mouth every other day. 45 tablet 3 Active levETIRAcetam (Keppra) 250 MG tablet TAKE 1 TABLET BY MOUTH EVERY MORNING & 2 AT NIGHT 270 tablet 3 4 Active Ascorbic Acid (vitamin C) 250 MG tablet TAKE 1 TABLET BY MOUTH EVERY OTHER DAY 45 tablet 4 Active SUMAtriptan (Imitrex) 100 MG tablet 1 TABLET NEEDED ONE TIME ORALLY ONCE A DAY NEEDED 4 Active fluticasone (Flonase) 50 MCG/ACT nasal spray Administer 1-2 sprays into each nostril Once per day. Shake gently. Before first use, prime pump. After use, clean tip and replace cap. 16 g 2 4 04/09/20 25 Active sodium chloride (Highpoint) 0.65 % nasal spray Administer 1 spray into each nostril if needed for congestion. 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 Patient with anxiousness, body tension, fearfulness and irritability in the context of fearing having a seizure that may be fatal. Patient declines a referral for OP therapy. Patient reports she has been reading up on anxiety and ways to manage it on her own. ?? At this time Ria Cabral meets criteria for Visit Diagnoses: Problem List Items Addressed This Visit ? Other ?? Mild anxiety ?? Patient ready to address current needs Patient reports she is able to manage anxiety on her own ?? Strengths include educating self on mental health (anxiety) ?? PLAN: 1. Follow up with [facility]: 2. Patient goal is overcome anxiety 3. Behavioral Recommendations a. Patient will utilize techniques provided b. 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 -Anoscopy Feb 2022 without evidence of any residual lesion nor occurrence. -Plan for follow up in 6 months Resolved Problems Problem Noted Date Diagnosed Date Resolved Date Anemia 09/18/2022 02/26/2023 Epilepsy, not refractory 09/08/2015 Encounters Date Type Department Care Team Description 08/14/2024 Population Health Risk Score Community Care [facility] ([facility]) Department [address] [phone] Provider, Population Health Generic 08/14/2024 Telephone [facility] [address] [place] [address] Leila Tomlinson MD may recall 07/02/2024 Refill [facility] [address] [place] [address] Leila Tomlinson MD from Last 3 Months Immunizations Name Administration Dates Next Due Hep A, Adult 09/02/2013,08/18/2012 Hep B, adult 05/20/2024,,09/02/2013,2012,08/18/2012 Influenza injectable quadriv alent IIV4 with preservative 03/27/2018,02/22/2016 Influenza injectable quadriv alent preservative free 02/25/2023,03/04/2015,04/14/2014 Influenza, Split (incl. dylan fied surface antigen) 09/02/2013,02/05/2012 Influenza, seasonal, injecta ble, preservative free 04/09/2024 Tdap 09/01/2020,02/05/2012 Family History Medical History Relation Name Comments Heart disease Father Breast cancer Father's Sister Relation Name Status Comments Father Father's Sister Social History Tobacco Use Types Packs/Day Years Used Date Smoking Tobacco: Never Passive Smoke Exposure: Never Smokeless Tobacco: Never Tobacco Cessation:Counseling Given: Not Answered Alcohol Use Standard Drinks/Week Comments Never 0 (1 standard drink = 0.6 oz pur e alcohol) Depression Answer Date Recorded Patient Health Questionnaire-9 Score 4 04/09/2024 Patient Health Questionnaire-9 Score 4 04/09/2024 Last PHQ-9: Questionnaire Data Not on file 1 06/09/2023 Housing Stability Answer Date Recorded What is your housing situation today? I have johann wagner 03/19/[address] you [...] Date Recorded Patient Health Questionnaire-2 Score 1 04/09/2024 Internet Access Answer Date Recorded Internet Access Q1 Yes 02/03/2024 Internet Access Q2 Not on file 02/03/2024 Comments No Sex and Gender Information Value Date Recorded Sex Assigned at Female 04/02/2022 10:22 AM EDT Legal Sex Female 10:22 AM EDT Gender Identity Female 04/02/2022 10:22 AM EDT Sexual Orientation Straight 01/22/2023 10 :25 AM EDT Last Filed Vital Signs Vital Sign Reading Time Taken Comments Blood Pressure 138/85 04/09/2024 8:58 AM EST Pulse 84 04/09/2024 8:58 AM EST Temperature 36.3 ??C (97.4 ??F) 04/09/2024 8:58 AM ES T Respiratory Rate 18 04/09/2024 8:58 AM EST Oxygen Saturation 96% 04/09/2024 8:58 AM EST Inhaled Oxygen Concentration - - Weight 73.3 kg (161 lb 9.6 oz) 04/09/2024 8:58 A M EST Height 170.2 cm (5' 7 ) 04/09/2024 8:58 AM EST Body Mass Index 25.31 04/09/2024 8:58 AM EST Plan of Treatment Upcoming Encounters Date Type Department Care Team (Late st Contact Info) Description 10/16/2024 9:30 AM EDT Office Visit [facility] [address] [place] [phone] Leila Tmolinson MD [address] [place] [phone] 10/21/2024 9:00 AM EDT Immunization [facility] [address] [place] [phone] Health Maintenance Due Date Last Done Comments CT Colonography 1975 FIT DNA/Cologuard 1975 FIT 1975 FOBT 1975 Sigmoidoscopy 1975 Family Planning (PISQ) 1990 COVID-19 Vaccine ( season) 2024 03/10/2021, 02/17/2021 SDOH Screening 07/17/2024 07/17/2023 Alcohol/Substance Use Screening 04/09/2025 04/09/2024 Depression Screening 04/09/2025 04/09/2024, 04/09/20 24 Tobacco Screening 04/09/2025 04/09/2024 Zoster Vaccines (1 of 2) 2025 HPV/Cotest 01/31/2026 01/31/2021, 02/01, 01/07/2017 Mammogram 04/06/2026 04/06/2024, 03/05, 03/29/2022, Additional history exists Cervical Cancer Screening 06/05/2026 Pap Smear 06/05/2026 06/05/2023, 01/31/2021 Colonoscopy 02/02/2028 02/01/2023 Colorectal Cancer Screening 02/02/2028 DTaP/Tdap/Td Vaccines (3 - Td or Tdap) 09/01/2030 09/01/2020, 02/05/2012 RSV Patients and Patients Aged 60 years or older (1 - 1-dose 75+ series) 2050 Hepatitis A Vaccines Aged Out 09/02/2013, 08/19/19 13 No longer eligible based on patient's age to complete this topic HIV Screening Completed 04/09/2024, 01/02, 12/14/2020, Additional history exists Hepatitis C Screening Completed 04/09/2024 , 01/28/2023, 12/14/2020 Influenza Vaccine Completed 04/09/2024, , 03/27/2018, Additional history exists Hepatitis B Vaccines Completed 05/20/2024, 2024, 09/02/2013, Additional history exists HIB Vaccines Aged Out No longer eligi ble based on patient's age to complete this topic HPV Vaccines Aged Out No longer eligi ble based on patient's age to complete this topic IPV Vaccines Aged Out No longer eligi ble based on patient's age to complete this topic Meningococcal Vaccine Aged Out No timothy barb eligible based on patient's age to complete this topic Pneumococcal Vaccine: Pediatrics (0 to 5 Years) and At-Risk Patients (6 to 49) Years) Aged Out No longer eligible based on patient's age to complete this topic RSV under 20 months Aged Out No longe r eligible based on patient's age to complete this topic Rotavirus Vaccines Aged Out No longer eligible based on patient's age to complete this topic Procedures Procedure Name Priority Date/Time Associated Diagnosis Comments HEPATITIS C AB W/REFL TO HCV RNA, QN, PCR Routine 04/09/2024 9:40 AM EST Annual physical exam HIV 1/2 ANTIGEN/ANTIBODY, FOURTH GENERATION W/RFL Routine 04/09/2024 9:40 AM EST Annual physical exam BI MAMMOGRAM SCREENING TOMOSYNTHESIS BILATERAL Routine 04/06/2024 7:50 AM EST PAP SMEAR Routine 06/05/2023 7:57 AM EST HM COLONOSCOPY Routine 02/01/2023 3:28 PM EDT ZZZ HISTORICAL THINPREP PAP AND HPV MRNA E6/E7 REFLEX HPV 16,18/45 Routine 01/31/2021 3:46 PM EDT from Last 3 Months or Most Recently Relevant to Health Maintenance Results * Hepatitis C Antibody with Reflex to HCV, RNA, Quantitative, Real-Time PCR (04/09/2024 9:40 AM EST) Hepatitis C Antibody Nonreactive Nonreactive [facility] Comment:Antibodies to HCV no t detected; does not exclude early acuteHCV infection. Blood Venous blood specimen / Unknown 04/09/2024 9:40 AM EST 04/09/2024 11:10 AM EST us Leila Lopez MD LAB BLOOD ORDERAB LES Final Result [facility] [address] [place] [phone] * HIV-1/2 Antigen and Antibodies, Fourth Generation, with Reflexes (04/09/2024 9:40 AM EST) HIV AB/AG Nonreactive Nonreactive [facility] Comment:HIV-1 p24 Ag and/or HIV-1/HIV-2 Ab not detected.A test result that is nonreactive does not exclude thepossibility of exposure to or infection with HIV-1 and/orHIV-2. Nonreactive results in this assay for individualswith prior exposure to HIV-1 and/or HIV-2 may be due toantigen and antibody levels that are below the limit ofdetection of this assay.The [employer]ec HIV Ag/Ab Combo assay result andsupplemental assay results should be interpreted inconjunction with the patient's clinical presentation,history and other laboratory results. If the results areinconsistent with clinical evidence, additional testing issuggested to confirm the result. Blood Venous blood specimen / Unknown 04/09/2024 9:40 AM EST 04/09/2024 11:10 AM EST us Leila Lopez MD LAB BLOOD ORDERAB LES Final Result Performing Organization Address City/State/[facility] Co de Phone Number [facility] [address] [place] [phone] * BI Mammogram Screening Tomosynthesis Bilateral (04/06/2024 7:50 AM EST) Anatomical Region Laterality Modality Breast Bilateral Mammography 04/06/2024 7:50 AM EST Narrative 04/14/2024 10:41 AM EST ? [facility] ? [address] ?[place] [address] ? Mammography Report ? Signed ? Patient: Cabral John,Ria ?MR#: [id number] ?? [id number] ? : 1975 ?Acct:[id number] ? Age/Sex: 48 / F ?ADM Date: 11/04/24 ? Loc: HO.MAMMO ? Attending Dr: Leila Lopez MD ? Ordering Physician: Leila Tomlinson MD ?Re ?? sults: 2Benign Findings ? Date of Service: 04/06/24 ?Follow Up: 1 Year From Orig ?? inal Mammogram ? Procedure(s): MM tomosynthesis screening BI ?? Accession Number(s): [id number] ? cc: Leila Tomlinson MD ? EXAMINATION: ?? MM SCREENING DIGITAL BREAST TOMOSYNTHESIS, BILATERAL ? CLINICAL INFORMATION: ? Screening. Asymptomatic. ? COMPARISON: ?? Mammography: Comparison is made with available priors ? TECHNIQUE: ?? Digital breast mammography with tomosynthesis is performed in both the ?? craniocaudal and mediolateral oblique views along with computer-aided ?? detection (CAD). ? FINDINGS: ?? The breasts are heterogeneously dense, which may obscure small masses ?? (ACR BI-RADS breast composition Category c). ?? Left marker clip. ?? There are no significant masses, abnormal calcifications, or other ?? abnormalities. ? MM/MM tomosynthesis screening BI ?? IMPRESSION: ?? No mammographic evidence of malignancy. ? ASSESSMENT: ? BI-RADS BI-RADS 2 - Benign Findings ? RECOMMENDATION: ?? Routine annual mammography screening. ? 1 year F/U ? This examination should not preclude the clinical evaluation of a ?? suspicious palpable abnormality. ? This patient's information was entered into a reminder system with a ?? target due date for their next mammogram. ? Electronically signed by: ??Alexandra Cardozo DO ??04/14/2024 10:37 AM EST ?? RP ? Dictated By: ?Alexandra Cardozo DO ? Signed By: ?<Electronically signed by Alexandra Cardozo, DO in OV> ? 04/14/24 1037 ? DD/ 0750 ? TD/TT: 04/06/24 0800 ? [employer]: ? Procedure Note Donotuseinterpreter, Image - 04/14/2024 [facility] [address] [place], [place] [address] Mammography Report Signed Patient: Mindi Walsh#: M [id number] : 1975Acct:[id number] Age/Sex: 48 / FADM Date: 04/06/24 Loc: HO.MAMMO Attending Dr: Leila Lopez MD Ordering Physician: Leila Tomlinsone sults: 2Benign Findings Date of Service: 04/06/24Follow Up: 1 Year From Orig inal Mammogram Procedure(s): MM tomosynthesis screening BI Accession Number(s): [id number] cc: Leila Tomlinson MD EXAMINATION: MM SCREENING DIGITAL BREAST TOMOSYNTHESIS, BILATERAL CLINICAL INFORMATION: Screening. Asymptomatic. COMPARISON: Mammography: Comparison is made with available priors TECHNIQUE: Digital breast mammography with tomosynthesis is performed in both the craniocaudal and mediolateral oblique views along with computer-aided detection (CAD). FINDINGS: The breasts are heterogeneously dense, which may obscure small masses (ACR BI-RADS breast composition Category c). Left marker clip. There are no significant masses, abnormal calcifications, or other abnormalities. MM/MM tomosynthesis screening BI IMPRESSION: No mammographic evidence of malignancy. ASSESSMENT: BI-RADS BI-RADS 2 - Benign Findings RECOMMENDATION: Routine annual mammography screening. 1 year F/U This examination should not preclude the clinical evaluation of a suspicious palpable abnormality. This patient's information was entered into a reminder system with a target due date for their next mammogram. Electronically signed by: Alexandra Cardozo DO 04/14/2024 10:37 AM EST Dictated By: Alexandra Cardozo DO Signed By: <Electronically signed by Alexandra Cardozo DO in OV> 04/14/24 1037 DD/ 0750 TD/TT: 04/06/24 0800 [employer]: Leila Lopez MD IMG BI PROCEDURES Final Result * Pap Smear (06/05/2023 7:57 AM EST) 06/05/2023 7:57 AM EST 06/05/2023 11:15 AM EST [place] [facility] - 06/10/2023 11:07 AM EST ----- ------- Name: Ria Walsh ?Age/Sex: 48/F ? : 1975 Unit#: [id number] ?? Attend Dr: Tu Mendez MD ?Re06/05/23 ?Status: DEP REF ? Location: .LAB ?Disch: ? ----- ------- SPEC : [id number] ? RECD: 06/05/235 ? STATUS: ??SOUT ? REQ NUM: [id number] ? TEJAL: 06/05/23-0757 ? SUBM DR: Tu Mendez MD ? ENTERED: ??06/05/23 ?SP TYPE: Pap Smr ?OTHR DR: Leila Tomlinson MD ORDERED: ??Pap Smear ? Interpretation ?? Satisfactory for evaluation. ?? Negative for intraepithelial lesion or malignancy. ?HPV mRNA E6/E7: ?NOT DETECTED ? This assay detects E6/E7 viral messenger RNA (mRNA) from 14 high-risk HPV types (16, 18, ?? 31, 33, 35, 39, 45, 51, 52, 56, 58, 59, 66, 68) ?? HPV testing performed by [facility], [place], [place]. ??See reference laboratory ?? portion of the EMR for entire report. ?Clinical Information LMP: 05/27/23 Previous PAP test: 2019, Unknown findings Other history: Abnormal uterine and vaginal bleeding ? Material Received ?? ThinPrep-Cervical Copies To: ?? Leila Tomlinson MD ?? [address] ?? [place] [address] ?? [phone] ?? Tu Mendez MD ?? [address] [place] [address] [facility] [address] ?? [place] [address] ?? [phone] ----- ------- Signed (signature on file) WYATT Caceres (ASCP) 06/10/23 1107 ? ----- ------- ? END OF REPORT ? us Generic External Data Provider LAB CYTOLOGY CELIA MCCANN Final Result [facility] [address] [place] [phone] * Hm Colonoscopy (02/01/2023 3:28 PM EDT) us Historical Provider HEALTH MAINTENANCE Final Result * THINPREP PAP AND HPV mRNA E6/E7 REFLEX HPV 16,18/45 (01/31/2021 3:46 PM EDT) Clinical Information: None given [facility] COMMENT SEE COMMENT [facility] Comment: EXPLANATORY NOTE: ? The Pap is a screening test for cervical cancer. It is ?? not a diagnostic test and is subject to false negative ?? and false positive results. It is most reliable when a ?? satisfactory sample, regularly obtained, is submitted ?? with relevant clinical findings and history, and when ?? the Pap result is evaluated along with historic and ?? current clinical information. ?? Laser Print Operator: SEE COMMENT [facility] Comment: YP, CT(ASCP) CT screening location: [address] ??[phone] HPV nRNA E6/E7 Not Detected Not Detected [facility] Comment: Methodology: Corn Chip Maker-Mediated Amplification This assay detects E6/E7 viral messenger RNA (mRNA) from 14 high-risk HPV types (16,18,31,33,35,39,45,51,52,56,58,59,66,68). ? The analytical performance characteristics of this assay have been determined by [facility]. The modifications have not been cleared or approved by the FDA. This assay has been validated pursuant to the CLIA regulations and is used for clinical purposes. ?? For additional information, please refer to http://education.[employer]/faq/JLO006s4 (This link if provided for information/ educational purposes only.) NO COLLECTION DATE RECEIVED. WE HAVE USED THE DATE THE SPECIMEN WAS RECEIVED BY THIS LABORATORY THE COLLECTION DATE. IF THIS IS INCORRECT, PLEASE CONTACT CLIENT SERVICES. PHONE NUMBER: ?? Interpretation/Re sult: Negative for intraepithelial lesion or malignancy. [facility] LMP: NONE [facility]IVEN [facility] Prev. BX: NONE [facility]IVEN [facility] Prev. PAP: NONE GIVEN [facility] SOURCE: None given [facility] Statement Of Adequacy: SEE COMMENT [facility] Comment: Satisfactory for evaluation. Endocervical/transformation zone component present. Age and/or menstrual status not provided 01/31/2021 3:46 PM EDT us Krystle Cortés NP HISTORICAL/NON ORDERABLE LABS F inal Result [facility] [address] from Last 3 Months or Most Recently Relevant to Health Maintenance [place] [address] [place] [address] C3 HSN FULL Care Teams Glaze Handler Relationship Specialty Start Date End Date Leila Tomlinson MD [address] [place] [phone] PCP - General Internal Medicine 11/14/22
--- OUTSIDE RECORDS SUMMARY | 2024-09-14 10:16 | XMS_ITS | Encounter Summary ---
Author Organization [employer] Address [address] [place] [address] Care Team Providers Care Spinner Concrete Pipe Name Role Phone Leila Tomlinson MD Primary Care Pro vider Reason for Visit * Reason Comments Med Refill Encounter Details Date Type Department Care Team ([facility] Contact Info) Description 02/21/2023 Refill [facility] [address] [place] [address] [phone] Leila Tomlinson MD [address] [place] [phone] Nonintractable epilepsy without status epilepticus, unspecified epilepsy type (CMS/HCC) Social History Tobacco Use Types Packs/Day Years Used Date Smoking Tobacco: Never Passive Smoke Exposure: Never Smokeless Tobacco: Never Alcohol Use Standard Drinks/Week Comments Never 0 (1 standard drink = 0.6 oz pur e alcohol) Depression Answer Date Recorded Patient Health Questionnaire-9 Score 5 02/25/2023 Depression Answer Date Recorded Patient Health Questionnaire-2 Score 1 02/25/2023 Comments Unknown Sex and Gender Information Value Date Recorded Sex Assigned at Female 04/02/2022 10:22 AM EDT Legal Sex Female 10:22 AM EDT Gender Identity Female 04/02/2022 10:22 AM EDT Sexual Orientation Straight 01/22/2023 10 :25 AM EDT documented as of this encounter Plan of Treatment Upcoming Encounters Date Type Department Care Team ([facility] Contact Info) Description 10/16/2024 9:30 AM EDT Office Visit [facility] [address] [place] [address] [phone] Leila Tomlinson MD [address] [place] [address] 10/21/2024 9:00 AM EDT Immunization [facility] [address] [place] [address] documented as of this encounter Visit Diagnoses Diagnosis Nonintractable epilepsy without status epilepticus, unspecified epilepsy type (CMS/HCC) documented in this encounter Additional Health Concerns Assessment Noted Time PHQ-9 Depression Total Score: 1 01/29/20 10:47 AM EDT documented as of this encounter Care Teams Spinner Concrete Pipe Relationship Specialty Start Date End Date Leila Tomlinson MD [address] [place] [address] PCP - General Internal Medicine 11/14/22 documented as of this encounter
--- OUTSIDE RECORDS SUMMARY | 2024-09-14 10:16 | XMS_ITS | Encounter Summary ---
Author Organization [employer] Address [address] [facility] 7t [place] [address] Care Team Providers Care Second Floor Operator Name Role Phone Leila Tomlinson MD Primary Care Pro vider Encounter Details Date Type Department Care Team ([facility] st Contact Info) Description 05/21/2024 Orders Only [facility] [address] [place] [address] Provider, MD Amie Social History Tobacco Use Types Packs/Day Years [...] t he electric, gas, oil or water [employer] threatened to shut off services in your [...] Description 10/16/2024 9:30 AM EDT Office Visit [address] [address] Leila Tomlinson MD [address] [place] [phone] 10/21/2024 9:00 AM EDT Immunization [address] [address] documented as of this encounter Procedures Procedure Name Priority Date/Time Associated Diagnosis Comments HM COLONOSCOPY Routine 02/01/2023 3:28 PM EDT documented in this encounter Results * Hm Colonoscopy (02/01/2023 3:28 PM EDT) us Historical Provider HEALTH MAINTENANCE Final Result documented in this encounter Visit Diagnoses Not on filedocumented in this encounter Additional Health Concerns Assessment Noted Time PHQ-9 Depression Total Score: 4 04/09/20 24 9:27 AM EST documented as of this encounter Care Teams Second Floor Operator Relationship Specialty Start Date End Date Leila Tomlinson MD [address] [place] [address] [phone] PCP - General Internal Medicine 11/14/22 documented as of this encounter
--- OUTSIDE RECORDS SUMMARY | 2024-09-14 10:16 | XMS_ITS | Encounter Summary ---
Author Organization [employer] Address [address] [place] [address] [place] [address] Care Team Providers Care Capacity Analyst Name Role Phone Pamela Moreno Primary Care Provider [phone] Leila Tomlinson MD Primary Care Pro vider Reason for Visit * Reason Comments Med Refill Encounter Details Date Type Department Care Team (Late st Contact Info) Description 11/11/2022 Refill [facility] [address] [place] [address] [phone] Pamela Moreno FNP [address] [place], [place] [phone] Nonintractable epilepsy without status epilepticus, unspecified epilepsy [...] Description 10/16/2024 9:30 AM EDT Office Visit [facility] [address] [place] [address] [phone] Leila Tomlinson MD [address] [place], [place] [phone] 10/21/2024 9:00 AM EDT Immunization [facility] [address] [place] [address] documented as of this encounter Visit Diagnoses Diagnosis Nonintractable epilepsy without status epilepticus, unspecified epilepsy type (CMS/HCC) documented in this encounter Care Teams Capacity Analyst Relationship Specialty Start Date End Date Pamela Moreno FNP [address] [place] [address] PCP - General Family Medicine 01/29/22 11/13/22 Leila Tomlinson MD [address] [place] [address] PCP - General Internal Medicine 11/14/22 documented as of this encounter
== END 2024-09-14 09:56 | disposition home or self-care (01) ==
LOC: HO.HGS 09:17
PROVIDERS: PCP Student in an Organized Health Care Education/Training Program; Visit Provider Surgery
DX: Z86.004 Personal history of in-situ neoplasm of other and unspecified digestive organs (principal)
CPT/HCPCS: 46600; 99213

== ENCOUNTER → 2024-09-14 09:16 | Outpatient (BNVA) | payer MEDICAID, SELFPAY | PROVIDERS: PCP Student in an Organized Health Care Education/Training Program; Visit Provider Surgery | DX: Z85.048 Personal history of other malignant neoplasm of rectum, rectosigmoid junction, and anus (principal) | CPT/HCPCS: 46600; 99212 ==

== ENCOUNTER 2024-09-24 07:21 | Outpatient (AMB) | payer MEDICAID, SELFPAY ==
--- OUTSIDE RECORDS SUMMARY | 2024-09-24 07:23 | XMS_ITS | Encounter Summary ---
Author Organization [employer] Address [address] [place] [address] 7 [place] [address] Care Team Providers Care Magnetic Healer Name Role Phone Leila Tomlinson MD Primary Care Pro vider Reason for Visit * Reason Comments Med Refill Encounter Details Date Type Department Care Team ([facility] st Contact Info) Description 10/15/2023 Refill [facility] [address] [place], [place] [phone] Leila Tomlinson MD [address] [place] [address] Social History Tobacco Use Types Packs/Day Years [...] 10/16/2024 9:30 AM EDT Office Visit [facility] [address] [place] [address] [phone] Leila Tomlinson MD [address] [place] [phone] 10/21/2024 9:00 AM EDT Immunization [facility] [address] [place] [phone] documented as of this encounter Visit Diagnoses Not on filedocumented in this encounter Additional Health Concerns Assessment Noted Time PHQ-9 Depression Total Score: 5 02/26/20 23 11:44 AM EDT documented as of this encounter Care Teams Magnetic Healer Relationship Specialty Start Date End Date Leila Tomlinson MD [address] [place] [phone] PCP - General Internal Medicine 11/14/22 documented as of this encounter
--- OUTSIDE RECORDS SUMMARY | 2024-09-24 07:23 | XMS_ITS | Encounter Summary ---
Author Organization [employer] Address [address] [facility] 7t [place] [address] Care Team Providers Care Supervisor Particleboard Name Role Phone Leila Tomlinson MD Primary Care Pro vider Encounter Details Date Type Department Care Team ([facility] st Contact Info) Description 05/21/2024 Orders Only [facility] [address] [place] [address] Provider, MD Amie Social History Tobacco Use [...] t he electric, gas, oil or water [employer] threatened to shut off services in your [...] Description 10/16/2024 9:30 AM EDT Office Visit [address] [address] Leila Tomlinson MD [address] [place] [phone] 10/21/2024 9:00 AM EDT Immunization [address] [address] documented as of this encounter Procedures Procedure [...] documented as of this encounter Care Teams Supervisor Particleboard Relationship Specialty Start Date End Date Leila Tomlinson MD [address] [place] [address] [phone] PCP - General Internal Medicine 11/14/22 documented as of this encounter
--- OUTSIDE RECORDS SUMMARY | 2024-09-24 07:23 | XMS_ITS | Encounter Summary ---
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 status epilepticus, unspecified epilepsy [...] Upcoming Encounters Date Type Department Care Team ([facility] Contact Info) Description 10/16/2024 9:30 AM EDT Office Visit [facility] [address] [place] [address] [phone] Leila Tomlinson MD [address] [place] [address] 10/21/2024 9:00 AM EDT Immunization [facility] [address] [place] [address] documented as of this encounter Visit Diagnoses Diagnosis Nonintractable epilepsy without status epilepticus, unspecified epilepsy type (CMS/HCC) documented in this encounter Additional Health Concerns Assessment Noted Time PHQ-9 Depression Total Score: 1 01/29/20 10:47 AM EDT documented as of this encounter Care Teams Defective Cigarette Slitter Relationship Specialty Start Date End Date Leila Tomlinson MD [address] [place] [address] PCP - General Internal Medicine 11/14/22 documented as of this encounter
--- OUTSIDE RECORDS SUMMARY | 2024-09-24 07:23 | XMS_ITS | Encounter Summary ---
Author Organization [employer] Address [address] [place] [address] [place] [address] Care Team Providers Care Chef De Froid Name Role Phone Pamela Moreno Primary Care Provider [phone] Leila Tomlinson MD Primary Care Pro vider Reason for Visit * Reason Comments Med Refill Encounter Details Date Type Department Care Team (Late st Contact Info) Description 11/11/2022 Refill [facility]INE [address] [place] [address] [phone] Pamela Moreno FNP [address] [place], [place] [phone] Nonintractable epilepsy without status epilepticus, unspecified epilepsy [...] Description 10/16/2024 9:30 AM EDT Office Visit [facility]INE [address] [place] [address] [phone] Leila Tomlinson MD [address] [place], [place] [phone] 10/21/2024 9:00 AM EDT Immunization [facility] [address] [place] [address] documented as of this encounter Visit Diagnoses Diagnosis Nonintractable epilepsy without status epilepticus, unspecified epilepsy type (CMS/HCC) documented in this encounter Care Teams Chef De Froid Relationship Specialty Start Date End Date Pamela Moreno FNP [address] [place] [address] PCP - General Family Medicine 01/29/22 11/13/22 Leila Tomlinson MD [address] [place] [address] PCP - General Internal Medicine 11/14/22 documented as of this encounter
--- OUTSIDE RECORDS SUMMARY | 2024-09-24 07:23 | XMS_ITS | Clinical Summary ---
Author Organization [facility] Address [address] [place] [address] Care Team Providers Care Clinical Provider Trainer Name Role Phone Unavailable Primary Care Provider [...]
--- OUTSIDE RECORDS SUMMARY | 2024-09-24 07:23 | XMS_ITS | Clinical Summary ---
Author Organization [employer] Address [address] [place] [address] 7 [place] [address] Care Team Providers Care Dynamic Balancer Set Up Worker Name Role Phone Leila Tomlinson MD Primary [...] 2 4 04/09/20 25 Active sodium chloride ([place]) 0.65 % nasal spray Administer 1 spray [...] (anxiety) ?? PLAN: 1. Follow up with [facility]: 2. Patient goal is overcome anxiety 3. Behavioral Recommendations a. Patient will utilize techniques provided b. 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 Smith -Excisional polypoid anal [...] 08/14/2024 Population Health Risk Score Community [facility] (C[facility]) Department [address] [phone] Provider, Population Health Generic 08/14/2024 Telephone [facility] [address] [place] [address] Leila Tomlinson MD may recall 07/02/2024 Refill [facility] [address] [place] [address] Leila Tomlinson MD from Last 3 Months [...] Description 10/16/2024 9:30 AM EDT Office Visit [facility] [address] [place] [phone] Leila Tomlinson MD [address] [place] [phone] 10/21/2024 9:00 AM EDT Immunization [facility] [address] [place] [phone] Health Maintenance Due Date Last Done Comments [...] AM EST) Hepatitis C Antibody Nonreactive Nonreactive [facility] Comment:Antibodies to HCV no t detected; does not exclude early acuteHCV infection. Blood Venous blood specimen / Unknown 04/09/2024 9:40 AM EST 04/09/2024 11:10 AM EST us Leila Lopez MD LAB BLOOD ORDERAB LES Final Result [facility] [address] [place] [phone] * HIV-1/2 Antigen and Antibodies, Fourth Generation, with Reflexes (04/09/2024 9:40 AM EST) HIV AB/AG Nonreactive Nonreactive [facility] Comment:HIV-1 p24 Ag and/or HIV-1/HIV-2 Ab not detected.A test result that is nonreactive does not exclude thepossibility of exposure to or infection with HIV-1 and/orHIV-2. Nonreactive results in this assay for individualswith prior exposure to HIV-1 and/or HIV-2 may be due toantigen and antibody levels that are below the limit ofdetection of this assay.The [employer] HIV Ag/Ab Combo assay result andsupplemental assay results should be interpreted inconjunction with the patient's clinical presentation,history and other laboratory results. If the results areinconsistent with clinical evidence, additional testing issuggested to confirm the result. Blood Venous blood specimen / Unknown 04/09/2024 9:40 AM EST 04/09/2024 11:10 AM EST us Leila Lopez MD LAB BLOOD ORDERAB LES Final Result Performing Organization Address City/State/[facility] Co de Phone Number [facility] [address] [place] [phone] * BI Mammogram Screening Tomosynthesis Bilateral (04/06/2024 7:50 AM EST) Anatomical Region Laterality Modality Breast Bilateral Mammography 04/06/2024 7:50 AM EST Narrative 04/14/2024 10:41 AM EST ? [facility] ? [address] ?[place] [address] ? Mammography Report ? Signed ? Patient: Cabral John,Ria ?MR#: M ?? [id number] ? : 1975 ?Acct:[id number] ? Age/Sex: 48 / F ?ADM Date: 11/04/24 ? Loc: HO.MAMMO ? Attending Dr: Leila Lopez MD ? Ordering Physician: Leila Tomlinson MD ?Re ?? sults: 2Benign Findings ? Date of Service: 04/06/24 ?Follow Up: 1 Year From Orig ?? inal Mammogram ? Procedure(s): MM tomosynthesis screening BI ?? Accession Number(s): [id number] ? cc: Leila Tomlinson MD ? EXAMINATION: [...] DD/ 0750 ? TD/TT: 04/06/24 0800 ? Assembler Bonding: ? Procedure Note Donotuseinterpreter, Image - 04/14/2024 [facility] [address] [place], [place] [address] Mammography Report Signed Patient: Mindi Walsh#: M [id number] : 1975Acct:[id number] Age/Sex: 48 / FADM Date: 04/06/24 Loc: HO.MAMMO Attending Dr: Leila Lopez MD Ordering Physician: Leila Tomlinsone sults: 2Benign Findings Date of Service: 04/06/24Follow Up: 1 Year From Orig inal Mammogram Procedure(s): MM tomosynthesis screening BI Accession Number(s): [id number] cc: Leila Tomlinson MD EXAMINATION: MM SCREENING [...] 04/14/24 1037 DD/ 0750 TD/TT: 04/06/24 0800 Assembler Bonding: Leila Lopez MD IMG BI PROCEDURES Final Result * Pap Smear (06/05/2023 7:57 AM EST) 06/05/2023 7:57 AM EST 06/05/2023 11:15 AM EST Hernando [facility] - 06/10/2023 11:07 AM EST ----- ------- Name: Ria Walsh ?Age/Sex: 48/F ? : 1975 Unit#: [id number] ?? Attend Dr: Tu Mendez MD ?Re06/05/23 ?Status: DEP REF ? Location: .LAB ?Disch: ? ----- ------- SPEC : [id number] ? RECD: 06/05/235 ? STATUS: ??SOUT ? REQ NUM: [id number] ? TEJAL: 06/05/23-0757 ? SUBM DR: Tu [...] 66, 68) ?? HPV testing performed by [facility], [place], [place]. ??See reference laboratory ?? portion of the EMR for entire report. ?Clinical Information LMP: 05/27/23 Previous PAP test: 2019, Unknown findings Other history: Abnormal uterine and vaginal bleeding ? Material Received ?? ThinPrep-Cervical Copies To: ?? Leila Tomlinson MD ?? [address] ?? [place] [address] ?? [phone] ?? Tu Mendez MD ?? [address] [place] [address] [facility] [address] ?? [place] [address] ?? [phone] ----- ------- Signed (signature on file) WYATT Caceres (ASCP) 06/10/23 1107 ? ----- ------- ? END OF REPORT ? us Generic External Data Provider LAB CYTOLOGY CELIA MCCANN Final Result [facility] [address] [place] [phone] * Hm Colonoscopy (02/01/2023 3:28 PM [...] historic and ?? current clinical information. ?? Cashier Manager: [facility] Comment: YP, CT(ASCP) CT screening location: [address] ??[address] HPV nRNA E6/E7 Not Detected Not Detected [facility] Comment: Methodology: Roughener-Mediated Amplification This assay detects E6/E7 viral messenger RNA (mRNA) from 14 high-risk HPV types (16,18,31,33,35,39,45,51,52,56,58,59,66,68). ? The analytical performance characteristics of this assay have been determined by [facility]. The modifications have not been cleared or approved by the FDA. This assay has been validated pursuant to the CLIA regulations and is used for clinical purposes. ?? For additional information, please refer to http://education.[employer]/faq/JPB990z2 (This link if provided for information/ educational purposes only.) NO COLLECTION DATE RECEIVED. WE HAVE USED THE DATE THE SPECIMEN WAS RECEIVED BY THIS LABORATORY THE COLLECTION DATE. IF THIS IS INCORRECT, PLEASE CONTACT CLIENT SERVICES. PHONE NUMBER: ?? Interpretation/Re sult: Negative for intraepithelial lesion or malignancy. [facility] LMP: NONE GIVEN FOUNDATIO N [...] NP HISTORICAL/NON ORDERABLE LABS F inal Result [facility] [address] from Last 3 Months or Most Recently Relevant to Health Maintenance [place] [address] [place] [address] C3 HSN FULL Care Teams Dynamic Balancer Set Up Worker Relationship Specialty Start Date End Date Leila Tomlinson MD [address] [place] [phone] PCP - General Internal Medicine 11/14/22
[2024-09-24 07:37] VITALS: BP 108/66; BMI 24.4
--- NOTE | 2024-09-24 07:37 | MHC.OFFVIS ---
Vital Signs 09/24/24 07:37 Height 5 ft 7 in Weight 156 lb BMI 24.4 BP 108/66 Intake Visit Reasons: annual Architectural Engineer Required: Yes Architectural Engineer Language: Car Knocker Services: Architectural Engineer Present (in person) Architectural Engineer Name: Michaela GARZA Information Interpreted: non-clinical & clinical Pearl Cutter: Pearl Cutter Present (Michaela GARZA) Accompanied by: Self / Same As Patient Allergies divalproex sodium Adverse Reaction (Verified 09/24/24 07:38) Unknown HPI Comments Details: Presenting for annual exam. No complaints. Last Pap/HPV was negative in 06/26 Last Mammogram was BI-RADS 2 in 04/26 Last colonoscopy was in 02/23, the recommendation was to repeat in 5 years Last ultrasound in 03/26 showed multiple uterine myomas, a follow-up pelvic ultrasound scheduled in 04/27 COUNTS INCLUDE 234 BEDS AT THE [facility] Medical History (Updated 09/24/24 @ 07:46 by Tu Mendez MD) History of anal dysplasia Hx of seizure disorder Diverticulosis AIN grade III COVID-19 vaccine series completed Anal lesion Constipation Vitamin D deficiency Non-refractory epilepsy Surgical History Tubal ligation status History of surgical removal of lesion Hx of colonoscopy History of lumpectomy of right breast History of appendectomy Hx of cholecystectomy Family History Father Heart muscle disorder caused by another medical condition Social History Household Members: Spouse and Children Housing: House Are you a primary rn intensive care unit to a significant other at home: No Do you presently have visiting nurse or other home services: No Alcohol intake: never Patient Tobacco Use Status: Never used Tobacco Current occupational status: unemployed Sexual orientation: Straight/Heterosexual Gender identity: Female Female Reproductive History Menstrual control method: permanent sterilization Date of last pap smear: 06/05/23 Date of Mammogram: 04/06/24 Review of Systems Const All systems reviewed & are unremarkable except as noted in HPI and below Card Reports as per HPI Resp Reports as per HPI GI Reports as per HPI and Reports no additional complaints Reports as per HPI Physical Exam Vital Signs: BMI result Body Mass Index 24.4 Const General: cooperative, healthy appearing and comfortable Chest Chest palpation & inspection: normal inspection of the chest and normal palpation of entire chest wall Breast/axilla inspection: normal inspection of the breasts and normal inspection of the axillae Breast/axilla palpation: normal palpation of the breasts, normal palpation of the axillae and no axillary lymphadenopathy Resp Effort & Inspection: normal respiratory effort Auscultation: clear to auscultation bilaterally Percussion: percussion normal Cardio Palpation: normal PMI Rate: regular rate Rhythm: regular rhythm Heart sounds: no murmurs and no rubs Peripheral pulses: Peripheral pulses 2+ throughout GI Inspection: Yes normal to inspection Palpation (GI): Soft to palpation, nontender, no guarding, not rigid and No hepatosplenomegaly present Percussion: Yes normal to percussion Auscultation: normal bowel sounds Rectal Exam - Female: deferred General: Yes bladder normal to palpation External Female Exam: No lesion Speculum Exam - Vagina: normal appearance of the vagina, normal palpation, normal vaginal discharge and not erythematous Speculum Exam - Cervix: normal appearance of the cervix and normal palpation Bimanual exam- vagina & uterus: normal bimanual exam, normal palpation, uterine size normal, bladder normal to palpation, consistency normal and normal palpation Bimanual Exam- Adnexa, other: normal adnexae, no masses and no tenderness Assessment & Plan Assessment & Plan (1) Well woman exam: Code(s): Z01.419 - Encounter for gynecological examination (general) (routine) without abnormal findings Category: Medical Plan: Cotesting done. Instructions given the patient to schedule next screening Mammogram in 04/27. Counseled the patient about the recommended dietary allowance of 1000 mg of Calcium & 600 IU of vitamin D. The patient was instructed to perform monthly self-breast exams and to schedule an annual exam in a year; All questions answered and the patient verbalized understanding. Instructed the patient to schedule annual exam in a year Coding Level of Care Code Est Pt Prev Care 40-64y(74096) Diagnoses Well woman exam Z01.419
== END 2024-09-24 08:01 | disposition home or self-care (01) ==
LOC: HO.HWS 07:21
PROVIDERS: PCP Student in an Organized Health Care Education/Training Program; Visit Provider Obstetrics & Gynecology
DX: Z01.419 Encounter for gynecological examination (general) (routine) without abnormal findings (principal)
CPT/HCPCS: 99396; 99459

== ENCOUNTER → 2024-09-24 07:21 | Outpatient (BNVA) | payer MEDICAID, SELFPAY | PROVIDERS: PCP Student in an Organized Health Care Education/Training Program; Visit Provider Obstetrics & Gynecology | DX: Z01.419 Encounter for gynecological examination (general) (routine) without abnormal findings (principal) | CPT/HCPCS: 99396; 99459 ==

== ENCOUNTER 2025-03-04 07:42 | Outpatient (AMB) | payer MEDICAID, SELFPAY ==
--- OUTSIDE RECORDS SUMMARY | 2025-03-04 07:44 | XMS_ITS | Clinical Summary ---
Author Organization [employer] Address [address] [place] [address] 7 [place] [address] Care Team Providers Care Aircraft Sheet Metal Mechanic Name Role Phone Leila Tomlinson MD Primary Care Pro vider Allergies Active Allergy Reactions Criticality Noted Date Comments Valproic Acid 12/14/2020 Other reaction(s): Panic attacks Medications * This document contains information received from the source organization and may not represent a complete record from that organization. lamoTRIgine (LaMICtal) 100 MG tabletIndication s:Nonintractable epilepsy without status epilepticus, unspecified epilepsy type (CMS/HCC) (HCC) Take 1 tablet (100 mg) by mouth in the morning. 30 tablet 1 3 Active levETIRAcetam (Keppra) 250 MG tablet TAKE 1 TABLET BY MOUTH EVERY MORNING & 2 AT NIGHT 270 tablet 3 4 Active sodium chloride (Rooks) 0.65 % nasal spray Administer 1 spray into each nostril if needed for congestion. 15 mL 5 4 04/09/20 25 Active fexofenadine (Mandi) 180 MG tablet TAKE 1 TABLET BY MOUTH EVERY DAY NEEDED FOR ALLERGIES 90 tablet 5 Active Calcium Carb-Cholecalcif ashley (CALCIUM 1000 + D PO) Take by mouth. Ac tive Active Problems Problem Noted Date Diagnosed Date Allergic rhinitis 04/09/2024 Uterine leiomyoma 09/21/2023 Migraine 01/28/2023 Mild anxiety 01/28/2023 Assessment & Plan (01/29/2023 9:22 AM EDT): Assessment: Patient with anxiousness, body tension, fearfulness and irritability in the context of fearing having a seizure that may be fatal. Patient declines a referral for OP therapy. Patient reports she has been reading up on anxiety and ways to manage it on her own. At this time Ria Cabral meets criteria for Visit Diagnoses: Problem List Items Addressed This Visit Other Mild anxiety Patient ready to address current needs Patient reports she is able to manage anxiety on her own Strengths include educating self on mental health (anxiety) PLAN: 1. Follow up with [facility]: 2. Patient goal is overcome anxiety 3. Behavioral Recommendations a. Patient will utilize techniques provided b. 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 -Anoscopy Feb 2022 without evidence of any residual lesion nor occurrence. 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/2025 Anemia 09/18/2022 02/26/2023 Epilepsy, not refractory (CMS/HCC) 09/08/2015 01/28/2023 Encounters Date Type Department Care Team Description 01/12/2025 2:15 PM EDT Office Visit [facility] [address] [place] [phone] Leila Tomlinson MD Health care maintenance (Primary Dx); Dietary counseling; Exercise counseling; Seizure disorder (CMS/HCC); Iron deficiency anemia, unspecified iron deficiency anemia type 01/12/2025 Travel 01/11/2025 Telephone [facility] [address] [place] [address] Leila Tomlinson MD chartprep 01/09/2025 Travel 01/05/2025 Patient Outreach [facility] [address] [place] [address] Leila Tomlinson MD Pre-visit Planning (SDOH negative. Tobacco screening negative. ) from Last 3 Months Immunizations Immunization Administration Dates Next Due Hep A, Adult 09/02/2013,08/18/2012 Hep B, adult 11/05/2024,,2024,2013,10/20/2012,08/18/2012 Influenza injectable quadriv alent IIV4 with preservative [...] housing situation today? I have johann wagner 01/05/[address] you li ve. Do you have problems with any of the following? None of the above 01/05/2025 Food Insecurity Answer Date Recorded Within the past 12 months, y ou worried that your food would run out before you got money to buy more: Never True 01/05/2025 Within the past 12 months,th e food you bought just didn't last and you didn't have enough money to get more: Never True 10/2024 Transportation Answer Date Recorded In the past 12 months, has l ack of transportation kept you from medical appts, meetings, work or from getting things needed for daily living? No 01/05/2025 Utilities Answer Date Recorded In the past 12 months, has t he electric, gas, oil or water company threatened to shut off services in your home? No 01/05/2025 Depression Answer Date Recorded Patient Health Questionnaire-2 [...] Sign Reading Time Taken Comments Blood Pressure 120/70 01/12/2025 2:38 PM EDT Pulse 82 01/12/2025 2:38 PM EDT Temperature 36.2 C (97.1 F) 01/12/2025 2:38 PM EDT Respiratory Rate 20 01/12/2025 2:38 PM EDT Oxygen Saturation 98% 01/12/2025 2:38 PM EDT Inhaled Oxygen Concentration - - Weight 72.5 kg (159 lb 12.8 oz) 01/12/2025 2:38 PM EDT Height 170.2 cm (5' 7 ) 01/12/2025 2:38 PM EDT Body Mass Index 25.03 01/12/2025 2:38 PM EDT Plan of Treatment Health Maintenance Due Date Last Done Comments CT Colonography 1975 FIT DNA/Cologuard 1975 FIT 1975 FOBT 1975 Sigmoidoscopy 1975 Family Planning (PISQ) 1990 COVID-19 Vaccine ( season) 2025 03/10/2021, 02/17/2021 Influenza Vaccine (#1) 2025 , 02/25/2023, 03/27/2018, Additional history exists Alcohol/Substance Use Screening 04/09/2025 04/09/2024 Depression Screening 04/09/2025 04/09/2024, 04/09/20 24 Zoster Vaccines (1 of 2) 2025 SDOH Screening 01/05/2026 01/05/2025 Disability Screening 01/09/2026 01/09/2025 Tobacco Screening 01/12/2026 01/12/2025 HPV/Cotest 01/31/2026 01/31/2021, 02/01, 01/07/2017 Mammogram 04/06/2026 [...] C Screening Completed 04/09/2024 , 01/28/2023, 12/14/2020 Hepatitis B Vaccines Completed 11/05/2024, 05/20/2024, 2024, Additional history exists HIB Vaccines Aged Out [...] Years) and At-Risk Patients (6 to 49) Years Aged Out No longer eligible based on patient's age to complete this topic RSV under 20 months Aged Out No longe r eligible based on patient's age to complete this topic Rotavirus Vaccines Aged Out No longer eligible based on patient's age to complete this topic Procedures Procedure Name Priority Date/Time Associated Diagnosis Comments ECG 12-LEAD Routine 01/12/2025 3:39 PM EDT Health care maintenance HEPATITIS C AB W/REFL TO HCV RNA, [...] Recently Relevant to Health Maintenance Results * ECG 12 lead (01/12/2025 3:39 PM EDT) Narrative Leila Tomlinson MD - 01/12/2025 3:39 PM EDT -EKG : NSR, HR 77, Qtc 407, no ischemic findings , TWI in lead III only Leila Lopez MD ECG ORDERABLES F inal Result * Hepatitis C Antibody with Reflex to HCV, RNA, Quantitative, Real-Time PCR (04/09/2024 9:40 AM EST) Hepatitis C Antibody Nonreactive Nonreactive [facility] Comment:Antibodies to HCV no t detected; does not exclude early acuteHCV infection. Blood Venous blood specimen / Unknown 04/09/2024 9:40 AM EST 04/09/2024 11:10 AM EST Leila Lopez MD LAB BLOOD ORDERAB LES Final Result [facility] [address] [place] [phone] * HIV-1/2 Antigen and Antibodies, Fourth Generation, with Reflexes (04/09/2024 9:40 AM EST) HIV AB/AG Nonreactive Nonreactive [facility] Comment:HIV-1 p24 Ag and/or HIV-1/HIV-2 Ab not detected.A test result that is nonreactive does not exclude thepossibility of exposure to or infection with HIV-1 and/orHIV-2. Nonreactive results in this assay for individualswith prior exposure to HIV-1 and/or HIV-2 may be due toantigen and antibody levels that are below the limit ofdetection of this assay.The Flirtomatic HIV Ag/Ab Combo assay result andsupplemental assay results should be interpreted inconjunction with the patient's clinical presentation,history and other laboratory results. If the results areinconsistent with clinical evidence, additional testing issuggested to confirm the result. Blood Venous blood specimen / Unknown 04/09/2024 9:40 AM EST 04/09/2024 11:10 AM EST us Leila Lopez MD LAB BLOOD ORDERAB LES Final Result [facility] [address] [place] [phone] * BI Mammogram Screening Tomosynthesis Bilateral (04/06/2024 7:50 AM EST) Anatomical Region Laterality Modality Breast Bilateral Mammography 04/06/2024 7:50 AM EST Narrative 04/14/2024 10:41 AM EST [facility] [address] [place] [address] Mammography Report Signed Patient: Ria Walsh MR#: [id number] : 1975 Acct:[id number] Age/Sex: 48 / F ADM Date: 04/06/24 Loc: HO.MAMMO Attending Dr: Leila Lopez MD Ordering Physician: Leila Tomlinson MD Re sults: 2Benign Findings Date of Service: 04/06/24 Follow Up: 1 Year From Orig inal Mammogram Procedure(s): MM tomosynthesis screening BI Accession Number(s): [id number] cc: Leila Tomlinson MD EXAMINATION: MM SCREENING [...] 04/14/24 1037 DD/ 0750 TD/TT: 04/06/24 0800 Boiler House Mechanic: Procedure Note Donotuseinterpreter, Image - 04/14/2024 [facility] [address] [place] [address] Dr. [place], BAKARI [address] Mammography Report Signed Patient: Mindi Walsh#: [id number] : 1975Acct:[id number] Age/Sex: 48 / FADM Date: 04/06/24 Loc: MAMMO Attending Dr: Leila Lopez MD Ordering Physician: Leila Tomlinson sults: 2Benign Findings Date of Service: 04/06/24Follow Up: 1 Year From Orig inal Mammogram Procedure(s): MM tomosynthesis screening BI Accession Number(s): [id number] cc: Leila Tomlinson MD EXAMINATION: MM SCREENING [...] 04/14/24 1037 DD/ 0750 TD/TT: 04/06/24 0800 Boiler House Mechanic: Leila Lopez MD IMG BI PROCEDURES Final Result * Pap Smear (06/05/2023 7:57 AM EST) 06/05/2023 7:57 AM EST 06/05/2023 11:15 AM EST [facility] - 06/10/2023 11:07 AM EST ----- ------- Name: Ria Walsh Age/Sex: 48/F : 1975 Unit#: [id number] Attend Dr: Tu Mendez MD Re06/05/23 Status: DEP REF Location: [facility] Disch: ----- ------- SPEC : [id number] RECD: 06/05/23-111 STATUS: NEGRITO BARAHONA NUM: [id number] TEJAL: 06/05/23-[address]: Tu Mendez MD ENTERED: 06/05/23-1146 SP TYPE: Pap Smr OTHR DR: Leila Tomlinson MD ORDERED: Pap Smear Interpretation Satisfactory for evaluation. Negative for intraepithelial lesion or malignancy. HPV mRNA E6/E7: NOT DETECTED This assay detects E6/E7 viral messenger RNA (mRNA) from 14 high-risk HPV types (16, 18, 31, 33, 35, 39, 45, 51, 52, 56, 58, 59, 66, 68) HPV testing performed by [facility], [place], [place]. See reference laboratory portion of the EMR for entire report. Clinical Information LMP: 05/27/23 Previous PAP test: 2019, Unknown findings Other history: Abnormal uterine and vaginal bleeding Material Received ThinPrep-Cervical Copies To: Leila Tomlinson MD [address] [place] [phone] Tu Mendez MD [address] [place], [place] [address]Mikaela [address] [address] ----- ------- Signed (signature on file) WYATT Caceres (ASCP) 06/10/23 1107 ----- ------- END OF REPORT us Generic External Data Provider LAB CYTOLOGY CELIA MCCANN Final Result [facility] [address] [place] [phone] * Hm Colonoscopy (02/01/2023 3:28 PM EDT) Historical Provider HEALTH MAINTENANCE Final Result * THINPREP PAP AND HPV mRNA E6/E7 REFLEX HPV 16,18/45 (01/31/2021 3:46 PM EDT) Clinical Information: None given [facility] COMMENT SEE COMMENT [facility] Comment: EXPLANATORY NOTE: The Pap is a screening test for cervical cancer. It is not a diagnostic test and is subject to false negative and false positive results. It is most reliable when a satisfactory sample, regularly obtained, is submitted with relevant clinical findings and history, and when the Pap result is evaluated along with historic and current clinical information. [employer]: SEE COMMENT [facility] Comment: YP CT(ASCP) CT screening location: [place] [address] HPV nRNA E6/E7 Not Detected Not Detected [facility] Comment: Methodology: Drying Tumbler Operator-Mediated Amplification This assay detects E6/E7 viral messenger RNA (mRNA) from 14 high-risk HPV types (16,18,31,33,35,39,45,51,52,56,58,59,66,68). The analytical performance characteristics of this assay have been determined by [facility]. The modifications have not been cleared or approved by the FDA. This assay has been validated pursuant to the CLIA regulations and is used for clinical purposes. For additional information, please refer to http://education.[employer].com/faq/PLS433q7 (This link if provided for information/ educational purposes only.) NO COLLECTION DATE RECEIVED. WE HAVE USED THE DATE THE SPECIMEN WAS RECEIVED BY THIS LABORATORY THE COLLECTION DATE. IF THIS IS INCORRECT, PLEASE CONTACT CLIENT SERVICES. PHONE NUMBER: Interpretation/Re sult: Negative for intraepithelial lesion or malignancy. [facility] LMP: NONE GIVEN [facility] N [...] NP HISTORICAL/NON ORDERABLE LABS F inal Result [facility] [address] from Last 3 Months or Most Recently Relevant to Health Maintenance Insurance [facility] C3 Care Teams Aircraft Sheet Metal Mechanic Relationship Specialty Start Date End Date Leila Tomlinson MD [address] [place] [phone] PCP - General Internal Medicine 11/14/22
--- OUTSIDE RECORDS SUMMARY | 2025-03-04 07:44 | XMS_ITS | Encounter Summary ---
Author Organization [employer] Address [address] [place] [address] Care Team Providers Care Bilingual Case Manager Name Role Phone Pamela Moreno Primary Care Provider [phone] Leila Tomlinson MD Primary Care Pro vider Reason for Visit * Reason Comments Med Refill Encounter Details Date Type Department Care Team ([facility] st Contact Info) Description 08/27/2022 Refill [facility] [address] [place], [place] [phone] Pamela Moreno FNP [address] [place] [address] Nonintractable epilepsy without status epilepticus, unspecified epilepsy [...] as of this encounter Plan of Treatment Not on file documented as of this encounter Visit Diagnoses Diagnosis Nonintractable epilepsy without status epilepticus, unspecified epilepsy type (CMS/HCC) (HCC) documented in this encounter Care Teams Bilingual Case Manager Relationship Specialty Start Date End Date Pamela Moreno FNP [address] [place] [address] PCP - General Family Medicine 01/29/22 11/13/22 Leila Tomlinson MD [address] [place] [phone] PCP - General Internal Medicine 11/14/22 documented as of this encounter
--- OUTSIDE RECORDS SUMMARY | 2025-03-04 07:44 | XMS_ITS | Encounter Summary ---
Author Organization [employer] Address [address] [place] [address] Care Team Providers Care Dyer Helper Name Role Phone Pamela Moreno Primary Care Provider [phone] Leila Tomlinson MD Primary Care Pro vider Reason for Visit * Reason Comments Med Refill Encounter Details Date Type Department Care Team ([facility] st Contact Info) Description 11/11/2022 Refill [facility] [address] [place], [place] [phone] Pamela Moreno FNP [address] [place] [address] Nonintractable epilepsy without status epilepticus, unspecified epilepsy [...] (HCC) documented in this encounter Care Teams Dyer Helper Relationship Specialty Start Date End Date Pamela Moreno FNP [address] [place] [address] PCP - General Family Medicine 01/29/22 11/13/22 Leila Tomlinson MD [address] [place] [phone] PCP - General Internal Medicine 11/14/22 documented as of this encounter
--- OUTSIDE RECORDS SUMMARY | 2025-03-04 07:45 | XMS_ITS | Encounter Summary ---
Author Organization [email or web address] Address [address] [place] [address] [place] [address] Care Team Providers Care Brick Shader Name Role Phone Leila Tomlinson MD Primary Care Pro vider Reason for Visit * Reason Comments Med Refill Encounter Details Date Type Department Care Team ([facility] st Contact Info) Description 10/15/2023 Refill [facility] [address] [place], [place] [phone] Leila Tomlinson MD [address] [place] [address] Social History Tobacco Use Types Packs/Day Years [...] documented as of this encounter Care Teams Brick Shader Relationship Specialty Start Date End Date Leila Tomlinson MD [address] [place] [phone] PCP - General Internal Medicine 11/14/22 documented as of this encounter
--- OUTSIDE RECORDS SUMMARY | 2025-03-04 07:45 | XMS_ITS | Clinical Summary ---
Author Organization [facility] Address [address] [place] [address] Care Team Providers Care Photographer'S Assistant Name Role Phone Unavailable Primary Care Provider [...] Cervical Cancer Screening: P ap Smear 1996 Depression Screening 06/03/2024 COVID-19 Vaccine ( - 2023-2 5 season) 2025 Influenza Vaccine (#1) 2025 RSV Immunization Adult Patie nts (1 - 1-dose 75+ series) 2050 HIB Vaccines Aged Out No longer eligi [...] 5 Years) and At-Risk Patients (6 to 49 Years) Aged Out No longer eligible b ased on patient's age to complete this topic RSV Immunization Patients Un sandhya 20 months Aged Out No longer eligible b ased on patient's age to complete this topic Varicella Vaccines Aged Out No longer eligible based on patient's age to complete this topic
--- OUTSIDE RECORDS SUMMARY | 2025-03-04 07:45 | XMS_ITS | Encounter Summary ---
Author Organization [employer] Address [address] [facility] 7 [place] [address] Care Team Providers Care Marketing Rotation Associate Name Role Phone Leila Tomlinson MD Primary Care Pro vider Encounter Details Date Type Department Care Team ([facility] st Contact Info) Description 05/21/2024 Orders Only [facility] [address] [place] [address] Provider, MD Amie Social History Tobacco Use [...] t he electric, gas, oil or water eCareer threatened to shut off services in your [...] on file documented as of this encounter Procedures Procedure [...] documented as of this encounter Care Teams Marketing Rotation Associate Relationship Specialty Start Date End Date Leila Tomlinson MD [address] [place] [phone] PCP - General Internal Medicine 11/14/22 documented as of this encounter
--- OUTSIDE RECORDS SUMMARY | 2025-03-04 07:45 | XMS_ITS | Encounter Summary ---
Author Organization [employer] Address [address] [place] [address] Care Team Providers Care Appliance Line Assembler Name Role Phone Leila Tomlinson MD Primary Care Pro vider Reason for Visit * Reason Comments Med Refill Encounter Details Date Type Department Care Team ([facility] st Contact Info) Description 02/21/2023 Refill [facility] [address] [place], [place] [phone] Leila Tomlinson MD [address] [place] [address] Nonintractable epilepsy without status epilepticus, unspecified epilepsy [...] type (CMS/HCC) (HCC) documented in this encounter Additional Health Concerns Assessment Noted Time PHQ-9 Depression Total Score: 1 01/29/20 10:47 AM EDT documented as of this encounter Care Teams Appliance Line Assembler Relationship Specialty Start Date End Date Leila Tomlinson MD [address] [place] [phone] PCP - General Internal Medicine 11/14/22 documented as of this encounter
--- NOTE | 2025-03-04 08:03 | A.OFFVIS_ITS ---
Vital Signs 03/04/25 08:07 Height 5 ft 7 in Weight 154 lb BMI 24.1 BP 136/88 Blood Pressure Location Rt brachial Position Sitting Pulse 78 Pulse Source Pulse Oximeter Pulse Oximetry (%) 99 Oxygen Delivery Method Room Air Intake Visit Reasons: Diverticulosis Intake Note: Est pt for mgmt of [facility]. DENISE 2022. CC; C.O. persistent epigastric pain + loose stools. Pt denies any additional sx but states that onset was approximately 2 mos ago and has been intermittent since then. Cupola Liner Helper Required: Yes Cupola Liner Helper Services: Cupola Liner Helper Offered & Declined Accompanied by: Self / Same As Patient Allergies divalproex sodium Adverse Reaction (Verified 03/04/25 08:11) Unknown HPI HPI Diverticulosis: Details: LAST VISIT Diverticulosis Moderate diverticulosis found in sigmoid colon. Patient was encouraged to increase fiber in her diet, increase fluid intake and activity to promote better bowel movement Status post colonoscopy Patient denies any ill effects from the prep, anesthesia or procedure itself. Patient denies any GI concerning symptoms. No polyps found. Colonoscopy will be repeated in 5 years due to previous history of tubular adenoma. Patient will follow-up with us on as-needed basis. She is agreeable to this plan and verbalizes understanding of instructions. She was given the opportunity to ask questions and all questions answered. TODAY'S VISIT: Patient is here today for request that visit. Patient reports that in past few months she has been having increase postprandial diarrhea. Patient reports that she has been dealing with this for couple months. Currently patient reports that the diarrhea subsided, however she continues to have loose stools. Patient has epigastric pain postprandially. Stops eating anything that has lactose. Patient reports epigastric pain, reflux and phlegm any time she eats. Patient also reports postprandial abdominal bloating. Reports occasional dyspepsia without dysphagia or odynophagia. Patient denies melena, hematochezia, unintentional weight loss or ribbon like stools. [facility] Medical History History of anal dysplasia Hx of seizure disorder Diverticulosis AIN grade III COVID-19 vaccine series completed Anal lesion Constipation Vitamin D deficiency Non-refractory epilepsy Surgical History Tubal ligation status History of surgical removal of lesion Hx of colonoscopy History of lumpectomy of right breast History of appendectomy Hx of cholecystectomy Family History Father Heart muscle disorder caused by another medical condition Social History Household Members: Spouse and Children Housing: House Are you a primary foster care case manager to a significant other at home: No Do you presently have visiting nurse or other home services: No Alcohol intake: never Patient Tobacco Use Status: Never used Tobacco Current occupational status: unemployed Sexual orientation: Straight/Heterosexual Gender identity: Female Review of Systems Const Denies weight gain and Denies weight loss ENT Reports no additional complaints, Denies dysphagia and Denies odynophagia Card Reports no additional complaints Resp Reports no additional complaints GI Denies abdominal pain, Denies belching, Denies melena, Denies bloating, Denies change in bowel habits, Denies dysphagia, Denies excessive flatus, Denies dyspepsia, Denies heartburn, Denies diarrhea, Denies loose stools, Denies nausea, Denies odynophagia and Denies vomiting Musc Reports no additional complaints Neuro Reports no additional complaints Psych Reports no additional complaints Endo Reports no additional complaints Physical Exam Vital Signs: Last Vital Signs Pulse 78 03/04/25 08:07 BP 136/88 03/04/25 08:07 Pulse Ox 99 03/04/25 08:07 Oxygen Delivery Method Room Air 03/04/25 08:07 BMI result Body Mass Index 24.1 Const General: healthy appearing, no acute distress and well developed Nutritional Appearance: well nourished Orientation/consciousness: patient oriented x3 Resp Effort & Inspection: normal respiratory effort, able to speak in complete sentences, no tracheal deviation and symmetric chest movement Auscultation: clear to auscultation bilaterally Cardio Rate: regular rate GI Inspection: Yes normal to inspection and No distended Palpation (GI): Soft to palpation, not firm, nontender and No hepatosplenomegaly present Auscultation: normal bowel sounds General: Yes no CVA tenderness Back/Spine/Pelvis Back: no CVA tenderness Skin General skin exam: elasticity normal, turgor normal and dry skin Neuro General: patient oriented x3 Psych Appearance: grossly normal Mental Status: mental status grossly normal Assessment & Plan Assessment & Plan (1) Postprandial epigastric pain: Code(s): R10.13 - Epigastric pain (2) GERD (gastroesophageal reflux disease): Code(s): K21.9 - Gastro-esophageal reflux disease without esophagitis Qualifiers: Esophagitis presence: esophagitis presence not specified Qualified Code(s): K21.9 - Gastro-esophageal reflux disease without esophagitis (3) Postprandial abdominal bloating: Code(s): R14.0 - Abdominal distension (gaseous) (4) Postprandial diarrhea: Code(s): K52.9 - Noninfective gastroenteritis and colitis, unspecified Plan Patient will be sent for upper GI with better swallow to evaluate reflux, hernia. Will check transglutaminase, thyroid study, lipase, B12, folate and vitamin-D levels. Patient will start taking fiber supplements to help her bulk stools. Increase fluid intake and activity to promote better bowel motility. Discussed with patient low FODMAP diet. Patient will start taking omeprazole daily. Avoid dietary triggers and late night snacking. Staying upright for minimum 3 hours after meals discussed with patient. Patient will follow-up in the office in 3 months, sooner on as needed basis. She is agreeable to this plan and verbalizes understanding of instructions. She was given the opportunity to ask questions and all questions answered. Thank you for allowing me to participate in her care Orders: Orders Transglutaminase IgA Today R10.9 - Unspecified abdominal pain FL upper GI w air w Ba Swallow Today K21.9 - Gastro-esophageal reflux disease without esophagitis TSH reflex Free T4 Today K59.00 - Constipation, unspecified Lipase Today R10.9 - Unspecified abdominal pain Vitamin B12 and Folate Today R19.7 - Diarrhea, unspecified Vitamin D 25-OH (D2 and D3) Today E55.9 - Vitamin D deficiency, unspecified Medications: New methylcellulose (laxative) (Citrucel) take it with full glass of water 500 mg PO DAILY 90 tabs 2RF K59.00 - Constipation, unspecified omeprazole 20 mg PO DAILY 30 caps 3RF K21.9 - Gastro-esophageal reflux disease without esophagitis Coding Level of Care Code Est Pt Level 4 (53227) Complex EM visit Add On G2211 Diagnoses Postprandial epigastric pain R10.13 Gastroesophageal reflux disease, unspecified whether esophagitis present K21.9 Esophagitis presence: esophagitis presence not specified Postprandial abdominal bloating R14.0 Postprandial diarrhea K52.9 Time Spent (min) 35 Comment 25 minutes spent with patient and additional 10 minutes spent reviewing her records
[2025-03-04 08:07] VITALS: BP 136/88; PULSE 78; O2SAT 99; BMI 24.1
== END 2025-03-04 08:20 | disposition home or self-care (01) ==
LOC: HO.HGI 07:43
PROVIDERS: PCP Student in an Organized Health Care Education/Training Program; Visit Provider Nurse Practitioner Family
DX: R10.13 Epigastric pain (principal); K21.9 Gastro-esophageal reflux disease without esophagitis; R14.0 Abdominal distension (gaseous); K52.9 Noninfective gastroenteritis and colitis, unspecified
CPT/HCPCS: 99214

== ENCOUNTER 2025-03-04 07:42 | Outpatient (REF) | payer MEDICAID, SELFPAY ==
[2025-03-04 09:28] LABS: Lipase 34 U/L (8-78)
[2025-03-04 09:58] LABS: Folate 9.1 ng/mL (> or = 4.0); Vitamin B12 474 pg/mL (200-900)
[2025-03-09 16:09] LABS: Vitamin D 25-OH, D2 <4 ng/mL; Vitamin D 25-OH, D3 35 ng/mL; Vitamin D 25-OH, Total 35 ng/mL (30-100)
== END 2025-03-04 07:43 | disposition home or self-care (01) ==
LOC: HO.LAB 07:42
PROVIDERS: PCP Student in an Organized Health Care Education/Training Program; Visit Provider Nurse Practitioner Family
DX: K21.9 Gastro-esophageal reflux disease without esophagitis (principal); K52.9 Noninfective gastroenteritis and colitis, unspecified; E55.9 Vitamin D deficiency, unspecified; K59.00 Constipation, unspecified; R14.0 Abdominal distension (gaseous)
CPT/HCPCS: 36415; 82306; 82607; 82746; 83690; 84443; 86364; 99212

== ENCOUNTER 2025-04-19 07:42 | Outpatient (REF) | payer MEDICAID, SELFPAY ==
--- NOTE | ~2025-04-19 | MM_ITS ---
EXAMINATION: MM SCREENING DIGITAL BREAST TOMOSYNTHESIS, BILATERAL CLINICAL INFORMATION: Screening. Asymptomatic. Ultrasound-guided needle core biopsy of the left breast on December 03, 2018 showed fibroadenoma (butterfly shaped hydromark clip). COMPARISON: Comparison made to multiple prior, most recent April 06, 2024, and most remote November 26, 2018. TECHNIQUE: Digital breast tomosynthesis is performed in mediolateral oblique and craniocaudal views along with computer-aided detection (CAD). Synthesized 2D images are generated from the tomosynthesis. FINDINGS: BREAST COMPOSITION: There are scattered areas of fibroglandular density. RIGHT BREAST: No significant masses, suspicious calcifications or other abnormalities are seen. LEFT BREAST: Tissue marker from previous needle core biopsy. No significant masses, suspicious calcifications or other abnormalities are seen. MM/MM tomosynthesis screening BI IMPRESSION: BILATERAL BREASTS: Benign, no mammographic evidence of malignancy. Normal interval follow-up is recommended in 12 months. ASSESSMENT: BI-RADS: Category 2: Benign RECOMMENDATION: Routine annual mammography screening. FOLLOW-UP: 1 year F/U This examination should not preclude the clinical evaluation of a suspicious palpable abnormality. This patient's information was entered into a reminder system with a target due date for their next mammogram. Electronically signed by: Jesus Dinero MD 04/19/2025 07:38 PM [facility] [place], [place]
== END 2025-04-19 07:43 | disposition home or self-care (01) ==
LOC: HO.MAMMO 07:42
PROVIDERS: PCP Student in an Organized Health Care Education/Training Program; Visit Provider Student in an Organized Health Care Education/Training Program
DX: Z12.31 Encounter for screening mammogram for malignant neoplasm of breast (principal)
CPT/HCPCS: 77063; 77067

== ENCOUNTER → 2025-04-19 07:50 | Outpatient (BNV) | payer MEDICAID, SELFPAY | PROVIDERS: PCP Student in an Organized Health Care Education/Training Program; Visit Provider Radiology Body Imaging | DX: Z12.31 Encounter for screening mammogram for malignant neoplasm of breast (principal) | CPT/HCPCS: 77063; 77067 ==

== ENCOUNTER 2025-04-22 07:47 | Outpatient (REF) | payer MEDICAID, SELFPAY ==
--- NOTE | ~2025-04-22 | US_ITS ---
EXAMINATION: US PELVIS CLINICAL INFORMATION: D25.9 - Leiomyoma of uterus, unspecified COMPARISON: Previous exams most recent March 2024 TECHNIQUE: Ultrasound of the pelvis is performed using both transabdominal and transvaginal transducers along with Doppler. Transvaginal imaging is performed due to inadequate visualization transabdominally. FINDINGS: Uterus: The uterus is retroverted and measures 7.7 x 3.6 x 5.3 cm. The double wall endometrial thickness is 2 mm. No endometrial fluid or mass. IUD no longer seen. Multiple hypoechoic uterine lesions suggestive of fibroids. 2.2 x 1.9 x 1.5 cm intramural right fundal/upper uterine body. This measured 2.5 x 2.1 x 1.9 cm and is not appreciably changed. 0.8 x 0.6 x 0.7 cm right upper uterine body intramural fibroid. This is newly appreciated. 1.2 x 0.6 x 1.1 cm posterior submucosal uterine body fibroid. This measured 1.6 x 1.6 x 1.4 cm on prior exam. 1.3 x 1.1 x 0.8 cm intramural fundal fibroid. This measured 1.2 x 1.2 x 1.3 cm on prior exam and not appreciably changed. 8 x 8 x 9 mm myometrial cyst in the fundus. Adnexa: Both ovaries are visualized. There is normal color flow to the adnexa. There is no ovarian torsion. There are prominent left adnexal vessels questionable for pelvic congestion. There is no pelvic ascites or fluid collection. Right ovary measures 2.7 x 1.5 x 1.1 cm. Left ovary measures 2.4 x 1.4 x 2.1 cm. US/US pelvic and transvaginal IMPRESSION: Multiple uterine fibroids, largest measuring 1.9 x 2.2 cm not appreciably changed from most recent March 2024 exam. Normal-appearing endometrium. IUD no longer seen. Normal-appearing ovaries. Prominent left pelvic vessels questionable for pelvic congestion. Electronically signed by: Tanesha Post MD 04/22/2025 03:03 PM [facility]
--- NOTE | ~2025-04-22 | FL_ITS ---
EXAMINATION: XR UPPER GI SERIES WITH barium swallow CLINICAL INFORMATION: Gastroesophageal reflux disease without esophagitis COMPARISON: None available. TECHNIQUE: Barium swallow and upper GI was performed using thin and thick barium and effervescent granules. A barium tablet was also administered. FINDINGS: The swallowing mechanism is normal. No aspiration or penetration. Esophageal motility is normal. No hernia, mass, stricture or evidence of esophagitis. There is moderate gastroesophageal reflux. Barium tablet passed freely into the stomach. The stomach and duodenum are normal appearing. No fold thickening, mass, ulceration or stricture. FLUOROSCOPY TIME: 1 minute 31 seconds DOSE AREA PRODUCT: 827 uGy-m2 (microgray-meter squared) FL/FL upper GI w air w Ba Swallow IMPRESSION: Moderate gastroesophageal reflux. Otherwise unremarkable exam. Electronically signed by: Tanesha Post MD 04/22/2025 08:39 AM KYLEE SOTO
--- OUTSIDE RECORDS SUMMARY | 2025-04-22 07:54 | XMS_ITS | Encounter Summary ---
Author Organization [employer] Address [address] [place] [address] Care Team Providers Care Energy Systems Engineer Name Role Phone Leila Tomlinson MD Primary Care Pro vider Reason for Visit * Reason Comments Med Refill Encounter Details Date Type Department Care Team ([facility] st Contact Info) Description 02/21/2023 Refill [facility] [address] [place], [place] [phone] Leila Tomlinson MD [address] [place] [address] Nonintractable epilepsy without status epilepticus, unspecified epilepsy [...] Time PHQ-9 Depression Total Score: 1 01/29/20 23 10:47 AM EDT documented as of this encounter Care Teams Energy Systems Engineer Relationship Specialty Start Date End Date Leila Tomlinson MD [address] [place] [id number] PCP - General Internal Medicine 11/14/22 documented as of this encounter
--- OUTSIDE RECORDS SUMMARY | 2025-04-22 07:54 | XMS_ITS | Encounter Summary ---
Author Organization [employer] Address [address] [place] [id number] Care Team Providers Care Tractor Crane Engineer Name Role Phone Pamela Moreno Primary Care Provider [phone] Leila Tomlinson MD Primary Care Pro vider Reason for Visit * Reason Comments Med Refill Encounter Details Date Type Department Care Team ([facility] st Contact Info) Description 08/27/2022 Refill [facility] [address] [place], [place] [phone] Pamela Moreno FNP [address] [place] [address] Nonintractable epilepsy without status epilepticus, unspecified epilepsy [...] (HCC) documented in this encounter Care Teams Tractor Crane Engineer Relationship Specialty Start Date End Date Pamela Moreno FNP [address] [place] [address] PCP - General Family Medicine 01/29/22 11/13/22 Leila Tomlinson MD [address] [place] [id number] PCP - General Internal Medicine 11/14/22 documented as of this encounter
--- OUTSIDE RECORDS SUMMARY | 2025-04-22 07:54 | XMS_ITS | Encounter Summary ---
Author Organization [employer] Address [address] [facility] [address] [place] [address] Care Team Providers Care Altitude Chamber Technician Name Role Phone Leila Tomlinson MD Primary Care Pro vider Encounter Details Date Type Department Care Team ([facility] st Contact Info) Description 05/21/2024 Orders Only [facility]INE [address] [place] [address] Provider, MD Amie Social History Tobacco Use [...] t he electric, gas, oil or water [employer] threatened to shut off services in your [...] documented as of this encounter Care Teams Altitude Chamber Technician Relationship Specialty Start Date End Date Leila Tomlinson MD [address] [place] [id number] PCP - General Internal Medicine 11/14/22 documented as of this encounter
--- OUTSIDE RECORDS SUMMARY | 2025-04-22 07:54 | XMS_ITS | Clinical Summary ---
Author Organization [employer] Address [address] [place] [address] 7 [place] [address] Care Team Providers Care Manufacturing Controls Engineer Name Role Phone Leila Tomlinson MD [...] AT NIGHT 270 tablet 3 4 Active fexofenadine (Mandi) 180 MG tablet TAKE 1 TABLET BY MOUTH EVERY DAY NEEDED FOR ALLERGIES 90 tablet 5 Active Calcium Carb-Cholecalcif ashley (CALCIUM 1000 + D PO) Take by mouth. Ac tive sodium chloride (Melvin) 0.65 % nasal spray Administer 1 spray into each nostril if needed for congestion. 15 mL 5 4 04/09/20 25 Active Problems Problem Noted Date Diagnosed Date [...] health (anxiety) PLAN: 1. Follow up with [facility]: 2. Patient goal is overcome anxiety 3. Behavioral Recommendations a. Patient will utilize techniques provided b. 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 -Anoscopy Feb 2022 without evidence of any residual lesion nor occurrence. 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/2025 Anemia 09/18/2022 02/26/2023 Epilepsy, not refractory (CMS/HCC) 09/08/2015 01/28/2023 Encounters Date Type Department Care Team Description 04/19/2025 Orders Only [facility] [address] [place] [phone] Leila Tomlinson MD 03/24/2025 Telephone [facility] [address] [place] [address] Leila Tomlinson MD sunny recall 03/04/2025 Orders Only GENERIC EXTERNAL DATA DEPARTMENT Provider, Generic External Data from Last 3 Months Immunizations Immunization Administration [...] 1975 FIT 1975 FOBT 1975 Sigmoidoscopy 1975 Alcohol/Substance Use Screening 1987 Family Planning (PISQ) 1990 COVID-19 Vaccine ( season) 2025 03/10/2021, 02/17/2021 Influenza Vaccine (#1) 2025 , 02/25/2023, 03/27/2018, Additional history exists Depression Screening 04/09/2025 04/09/2024, 04/09/20 24 Pneumococcal Vaccine: 50+ Years (1 of 1 - PCV) 2025 Zoster Vaccines (1 of 2) 2025 SDOH Screening 01/05/2026 01/05/2025 Disability Screening 01/09/2026 01/09/2025 Tobacco Screening 01/12/2026 01/12/2025 HPV/Cotest 01/31/2026 01/31/2021, 02/01, 01/07/2017 Cervical Cancer Screening 06/05/2026 Pap Smear 06/05/2026 06/05/2023, 01/31/2021 Mammogram 04/19/2027 04/19/2025, 11/0 09/2023, 04/01/2023, Additional history exists Colonoscopy 02/02/2028 02/01/2023, 02/01/2023 Colorectal Cancer Screening 02/02/2028 DTaP/Tdap/Td Vaccines [...] Procedure Name Priority Date/Time Associated Diagnosis Comments BI MAMMOGRAM SCREENING TOMOSYNTHESIS BILATERAL Routine 04/19/2025 7:50 AM EST VITAMIN D 25-OH (D2 AND D3) Routine 03/04/2025 8:35 AM EDT TISSUE TRANSGLUTAMINASE AB, IGA Routine 03/04/2025 8:35 AM EDT VITAMIN B12/FOLATE, SERUM PANEL Routine 03/04/2025 8:35 AM EDT TSH W/REFLEX TO FT4 Routine 03/04/2025 8 :35 AM EDT LIPASE Routine 03/04/2025 8:35 AM EDT HEPATITIS C AB W/REFL TO HCV RNA, QN, PCR Routine 04/09/2024 9:40 AM EST Annual physical exam HIV 1/2 ANTIGEN/ANTIBODY, FOURTH GENERATION W/RFL Routine 04/09/2024 9:40 AM EST Annual physical exam PAP SMEAR Routine 06/05/2023 7:57 AM EST HM COLONOSCOPY Routine 02/01/2023 3:28 PM EDT ZZZ HISTORICAL THINPREP PAP AND HPV MRNA E6/E7 REFLEX HPV 16,18/45 Routine 01/31/2021 3:46 PM EDT from Last 3 Months or Most Recently Relevant to Health Maintenance Results * BI Mammogram Screening Tomosynthesis Bilateral (04/19/2025 7:50 AM EST) Anatomical Region Laterality Modality Breast Bilateral Mammography 04/19/2025 7:50 AM EST Narrative 04/19/2025 7:40 PM EST [facility] [address] [place], [place] [address] Mammography Report Signed Patient: Ria Walsh MR#: [id number] : 1975 Acct:[id number] Age/Sex: 49 / F ADM Date: 04/19/25 Loc: HO.MAMMO Attending Dr: Leila Lopez MD Ordering Physician: Leila Tomlinson MD Re sults: 2Benign Date of Service: 04/19/25 Follow Up: 1 Year From Orig inal Mammogram Procedure(s): MM tomosynthesis screening BI Accession Number(s): [id number] cc: Leila Tomlinson MD Reason For Exam: SCREENING EXAMINATION: MM SCREENING DIGITAL BREAST TOMOSYNTHESIS, BILATERAL CLINICAL INFORMATION: Screening. Asymptomatic. Ultrasound-guided needle core biopsy of the left breast on December 03, 2018 showed fibroadenoma (butterfly shaped hydromark clip). COMPARISON: Comparison made to multiple prior, most recent April 06, 2024, and most remote November 26, 2018. TECHNIQUE: Digital breast tomosynthesis is performed in mediolateral oblique and craniocaudal views along with computer-aided detection (CAD). Synthesized 2D images are generated from the tomosynthesis. FINDINGS: BREAST COMPOSITION: There are scattered areas of fibroglandular density. RIGHT BREAST: No significant masses, suspicious calcifications or other abnormalities are seen. LEFT BREAST: Tissue marker from previous needle core biopsy. No significant masses, suspicious calcifications or other abnormalities are seen. MM/MM tomosynthesis screening BI IMPRESSION: BILATERAL BREASTS: Benign, no mammographic evidence of malignancy. Normal interval follow-up is recommended in 12 months. ASSESSMENT: BI-RADS: Category 2: Benign RECOMMENDATION: Routine annual mammography screening. FOLLOW-UP: 1 year F/U This examination should not preclude the clinical evaluation of a suspicious palpable abnormality. This patient's information was entered into a reminder system with a target due date for their next mammogram. Electronically signed by: Jesus Dinero MD 04/19/2025 07:38 PM EST Dictated By: Jesus Dinero MD Signed By: <Electronically signed by Jesus Dinero MD in OV> 04/19/25 1938 DD/ 0750 TD/TT: 04/19/25 0805 Consulting Analyst: Procedure Note Donotuseinterpreter, Image - 04/19/2025 [facility] [address] [place] [address] Dr. Ni, [place] [address] Mammography Report Signed Patient: Mindi Walsh#: M [id number] : 1975Acct:[id number] Age/Sex: 49 / FADM Date: 04/19/25 Loc: HOMARIANAO Attending Dr: Leila Lopez MD Ordering Physician: Leila Tomlinson sults: 2Benign Date of Service: 11/17/25Follow Up: 1 Year From Orig ina Mammogram Procedure(s): MM tomosynthesis screening BI Accession Number(s): [id number] cc: Leila Tomlinson MD Reason For Exam: SCREENING EXAMINATION: MM SCREENING DIGITAL BREAST TOMOSYNTHESIS, BILATERAL CLINICAL INFORMATION: Screening. Asymptomatic. Ultrasound-guided needle core biopsy of the left breast on December 03, 2018 showed fibroadenoma (butterfly shaped hydromark clip). COMPARISON: Comparison made to multiple prior, most recent April 06, 2024, and most remote November 26, 2018. TECHNIQUE: Digital breast tomosynthesis is performed in mediolateral oblique and craniocaudal views along with computer-aided detection (CAD). Synthesized 2D images are generated from the tomosynthesis. FINDINGS: BREAST COMPOSITION: There are scattered areas of fibroglandular density. RIGHT BREAST: No significant masses, suspicious calcifications or other abnormalities are seen. LEFT BREAST: Tissue marker from previous needle core biopsy. No significant masses, suspicious calcifications or other abnormalities are seen. MM/MM tomosynthesis screening BI IMPRESSION: BILATERAL BREASTS: Benign, no mammographic evidence of malignancy. Normal interval follow-up is recommended in 12 months. ASSESSMENT: BI-RADS: Category 2: Benign RECOMMENDATION: Routine annual mammography screening. FOLLOW-UP: 1 year F/U This examination should not preclude the clinical evaluation of a suspicious palpable abnormality. This patient's information was entered into a reminder system with a target due date for their next mammogram. Electronically signed by: Jesus Dinero MD 04/19/2025 07:38 PM [facility] Dictated By: Jesus Dinero MD Signed By: <Electronically signed by Jesus Dinero MD in OV> 04/19/25 1938 DD/ 0750 TD/TT: 04/19/25 0805 Consulting Analyst: us Leila Lopez MD IMG BI PROCEDURES Final Result * VITAMIN D 25-OH (D2 AND D3) (03/04/2025 8:35 AM EDT) Vitamin D, 25-OH, D2 <4 ng/mL [facility] Comment:This test was develo ped and its analytical performancecharacteristics have been determined by [employer] [place], [place]. It hasnot been cleared or approved by the U.S. Food and DrugAdministration. This assay has been validated pursuantto the CLIA regulations and is used for clinicalpurposes.THIS TEST WAS PERFORMED AT:[facility] [id number] [place] [id number] WHITING MD,PHD Vitamin D, 25-OH, D3 35 ng/mL [facility] Comment:This test was develo ped and its analytical performancecharacteristics have been determined by [employer] [place], [place]. It hasnot been cleared or approved by the U.S. Food and DrugAdministration. This assay has been validated pursuantto the CLIA regulations and is used for clinicalpurposes. Vitamin D, 25-OH, Total 35 30 - 100 ng/mL [facility] Comment:Vitamin D, 25-Hydrox y reports concentrations of twocommon forms, 25-OHD2 and 25-OHD3. 25-OHD3 indicatesboth endogenous production and supplementation.25-OHD2 is an indicator of exogenous sources such asdiet or supplementation. Therapy is based onmeasurement of Total 25-OHD, with levels <20 ng/mLindicative of Vitamin D deficiency, while levelsbetween 20 ng/mL and 30 ng/mL suggest insufficiency.Optimal levels are > or = 30 ng/mL.For additional information, please refer tohttp://education.[employer].Teravac/faq/ANF564(This link is being provided for informational/educational purposes only.) 03/04/2025 8:35 AM EDT 03/04/2025 8:35 AM EDT us Generic External Data Provider LAB BLOOD ORDERAB LES Final Result [facility] [address] [place] [phone] * Vitamin B12 (Cobalamin) and Folate Panel, Serum (03/04/2025 8:35 AM EDT) Vitamin B12 474 200 - 900 pg/mL [facility] Comment:NORMAL 200-900 PG/ML INDETERMINATE 160-199 PG/ML DEFICIENT < 160 PG/ML Folate 9.1 > or = 4.0 ng/mL [facility] Comment:Reference Values:> o r = 4.0 ng/mL< 4.0 ng/mL suggests folate deficiency Methotrexate, aminopterin and folinic acid(leucovorin) are chemotherapeutic agents whose molecularstructures are similar to folate; therefore, the Architectfolate assay cannot be used for patients using these drugs. 03/04/2025 8:35 AM EDT 03/04/2025 8:35 AM EDT Generic External Data Provider LAB BLOOD ORDERAB LES Final Result Performing Organization Address [facility] Co de Phone Number [facility] [address] [place] [address] [phone] * TSH with Reflex to Free T4 (03/04/2025 8:35 AM EDT) Pathologist [facility] TSH reflex Free T4 3.34 0.32 - 4.0 uIU/mL [facility] 03/04/2025 8:35 AM EDT 03/04/2025 8:35 AM EDT Generic External Data Provider LAB BLOOD ORDERAB LES Final Result Performing Organization Address [facility] Co de Phone Number [facility] [address] [place] [phone] * Tissue Transglutaminase Antibody, IgA (03/04/2025 8:35 AM EDT) Pathologist [facility] Transglutaminase IgA <1.0 U/mL [facility] Comment:Value Interpretation ----- <15.0 Antibody not detected> or = 15.0 Antibody detectedTHIS TEST WAS PERFORMED AT:[facility] [address] [id number] HERNANDEZ MD 03/04/2025 8:35 AM EDT 03/04/2025 8:35 AM EDT us Generic External Data Provider LAB BLOOD ORDERAB LES Final Result Performing Organization Address [facility]/ZIP Co de Phone Number [facility] [address] [place] [phone] * Lipase (03/04/2025 8:35 AM EDT) Pathologist [facility] Lipase 34 8 - 78 U/L [facility] 03/04/2025 8:35 AM EDT 03/04/2025 8:35 AM EDT Generic External Data Provider LAB BLOOD ORDERAB LES Final Result Performing Organization Address [facility] Co de Phone Number [facility] [address] [place] [phone] * Hepatitis C Antibody with Reflex to HCV, RNA, Quantitative, Real-Time PCR (04/09/2024 9:40 AM EST) [facility] Hepatitis C Antibody Nonreactive Nonreactive [facility] Comment:Antibodies to HCV no t detected; does not exclude early acuteHCV infection. Blood Venous blood specimen / Unknown 04/09/2024 9:40 AM EST 04/09/2024 11:10 AM EST us Leila Lopez MD LAB BLOOD ORDERAB LES Final Result Performing Organization Address [facility] Co de Phone Number [facility] [address] [place] [phone] * HIV-1/2 Antigen and Antibodies, Fourth Generation, with Reflexes (04/09/2024 9:40 AM EST) [facility] HIV AB/AG Nonreactive Nonreactive [facility] Comment:HIV-1 p24 Ag and/or HIV-1/HIV-2 Ab not detected.A test result that is nonreactive does not exclude thepossibility of exposure to or infection with HIV-1 and/orHIV-2. Nonreactive results in this assay for individualswith prior exposure to HIV-1 and/or HIV-2 may be due toantigen and antibody levels that are below the limit ofdetection of this assay.The byyd [employer] HIV Ag/Ab Combo assay result andsupplemental assay results should be interpreted inconjunction with the patient's clinical presentation,history and other laboratory results. If the results areinconsistent with clinical evidence, additional testing issuggested to confirm the result. Blood Venous blood specimen / Unknown 04/09/2024 9:40 AM EST 04/09/2024 11:10 AM EST us Leila Lopez MD LAB BLOOD ORDERAB LES Final Result [facility] [address] [place] [phone] * Pap Smear (06/05/2023 7:57 AM EST) 06/05/2023 7:57 AM EST 06/05/2023 11:15 AM EST Narrative [facility] - 06/10/2023 11:07 AM EST ----- ------- Name: Ria Walsh Age/Sex: 48/F : 1975 Unit#: [id number] Attend Dr: Tu Mendez MD Re06/05/23 Status: DEP REF Location: .LAB Disch: ----- ------- SPEC : [id number] RECD: 06/05/23 STATUS: NEGRITO BARAHONA NUM: [id number] TEJAL: 06/05/23 [facility] DR: Tu Mendez MD ENTERED: 06/05/23 SP TYPE: Pap Smr OTHR DR: Leila Tomlinson MD ORDERED: Pap Smear Interpretation Satisfactory for evaluation. Negative for intraepithelial lesion or malignancy. HPV mRNA E6/E7: NOT DETECTED This assay detects E6/E7 viral messenger RNA (mRNA) from 14 high-risk HPV types (16, 18, 31, 33, 35, 39, 45, 51, 52, 56, 58, 59, 66, 68) HPV testing performed by [facility], [place], [place]. See reference laboratory portion of the EMR for entire report. Clinical Information LMP: 05/27/23 Previous PAP test: 2019, Unknown findings Other history: Abnormal uterine and vaginal bleeding Material Received ThinPrep-Cervical Copies To: Leila Tomlinson MD [address] [place] [phone] Tu Mendez MD [address] [place] [address] [address] ----- ------- Signed (signature on file) WYATT Caceres ([facility]) 06/10/23 1107 ----- ------- END OF REPORT us Generic External Data Provider LAB CYTOLOGY CELIA MCCANN Final Result [facility] [address] [place] [phone] * Hm Colonoscopy (02/01/2023 3:28 PM EDT) Historical Provider HEALTH MAINTENANCE Final Result * THINPREP PAP AND HPV mRNA E6/E7 REFLEX HPV 16,18/45 (01/31/2021 3:46 PM EDT) Clinical Information: None given [facility] COMMENT SEE COMMENT [facility]OUNDAT[facility] ON [...] along with historic and current clinical information. Despatching And Receiving Clerk: SEE COMMENT [facility] Comment: YP, CT(ASCP) CT screening location: [place] [address] HPV nRNA E6/E7 Not Detected Not Detected [facility] Comment: Methodology: Mail Sorting Supervisor-Mediated Amplification This assay detects E6/E7 viral messenger RNA (mRNA) from 14 high-risk HPV types (16,18,31,33,35,39,45,51,52,56,58,59,66,68). The analytical performance characteristics of this assay have been determined by [facility]. The modifications have not been cleared or approved by the FDA. This assay has been validated pursuant to the CLIA regulations and is used for clinical purposes. For additional information, please refer to http://education.[employer].Teravac/faq/HTI918d1 (This link if provided for information/ educational [...] status not provided 01/31/2021 3:46 PM EDT Krystle Cortés NP HISTORICAL/NON ORDERABLE LABS F inal Result [facility] [address] from Last 3 Months or Most Recently Relevant to Health Maintenance Insurance C3 Care Teams Manufacturing Controls Engineer Relationship Specialty Start Date End Date Leila Tomlinson MD [address] [place] [phone] PCP - General Internal Medicine 11/14/22
--- OUTSIDE RECORDS SUMMARY | 2025-04-22 07:54 | XMS_ITS | Encounter Summary ---
Author Organization [employer] Address [address] [facility] 7 [place] [address] Care Team Providers Care Utility Service Worker Name Role Phone Leila Tomlinson MD Primary Care Pro vider Encounter Details Date Type Department Care Team ([facility] st Contact Info) Description 04/19/2025 Orders Only [facility] [address] [place], [place] [phone] Leila Tomlinson MD [address] [place] [address] Social History Tobacco Use Types Packs/Day Years [...] TOMOSYNTHESIS BILATERAL Routine 04/19/2025 7:50 AM EST documented in this encounter Results * BI Mammogram Screening Tomosynthesis Bilateral (04/19/2025 7:50 AM EST) Anatomical Region Laterality Modality Breast Bilateral Mammography 04/19/2025 7:50 AM EST Narrative 04/19/2025 7:40 PM EST [facility] [address] Ni, [place] [address] Mammography Report Signed Patient: Ria Walsh MR#: [id number] : 1975 Acct:[id number] Age/Sex: 49 / F ADM Date: 04/19/25 Loc: HO.MAMMO Attending Dr: Leila Lopez MD Ordering Physician: Leila Tomlinson MD Re sults: 2Benign Date of Service: 04/19/25 Follow Up: 1 Year From Orig inal Mammogram Procedure(s): MM tomosynthesis screening BI Accession Number(s): [id number] cc: Leila Tomlinson MD Reason For Exam: [...] 04/19/25 1938 DD/ 0750 TD/TT: 04/19/25 0805 Sheet Rock Applicator: Procedure Note Donotuseinterpreter, Image - 04/19/2025 [facility] [address] [place] [address] Dr. Ni, [place] [address] Mammography Report Signed Patient: Mindi Walsh#: M [id number] : 1975Acct:[id number] Age/Sex: 49 / FADM Date: 04/19/25 Loc: HO.MAMMO Attending Dr: Leila Lopez MD Ordering Physician: Leila Tomlinson sults: 2Benign Date of Service: 04/19/25Follow Up: 1 Year From Orig inal Mammogram Procedure(s): MM tomosynthesis screening BI Accession Number(s): [id number] cc: Leila Tomlinson MD Reason For Exam: [...] 04/19/25 1938 DD/ 0750 TD/TT: 04/19/25 0805 Sheet Rock Applicator: us Leila Lopez MD IMG BI PROCEDURES Final Result documented in this encounter Visit Diagnoses Not on filedocumented in this encounter Additional Health Concerns Assessment Noted Time PHQ-9 Depression Total Score: 4 04/09/20 24 9:27 AM EST documented as of this encounter Care Teams Utility Service Worker Relationship Specialty Start Date End Date Leila Tomlinson MD [address] [place] [phone] PCP - General Internal Medicine 11/14/22 documented as of this encounter
--- OUTSIDE RECORDS SUMMARY | 2025-04-22 07:54 | XMS_ITS | Encounter Summary ---
Author Organization [employer] Address [address] [place] [address] [place] [address] Care Team Providers Care Sewing Machine Operator Zipper Name Role Phone Leila Tomlinson MD Primary Care Pro vider Reason for Visit * Reason Comments Med Refill Encounter Details Date Type Department Care Team ([facility] st Contact Info) Description 10/15/2023 Refill [facility] [address] [place], [place] [phone] Leila Tomlinson MD [address] [place] [address] Social History Tobacco Use Types Packs/Day Years [...] documented as of this encounter Care Teams Sewing Machine Operator Zipper Relationship Specialty Start Date End Date Leila Tomlinson MD [address] [place] [phone] PCP - General Internal Medicine 11/14/22 documented as of this encounter
--- OUTSIDE RECORDS SUMMARY | 2025-04-22 07:54 | XMS_ITS | Encounter Summary ---
Author Organization [employer] Address [address] [place] [address] Care Team Providers Care Prorate Clerk Name Role Phone Pamela Moreno Primary Care Provider [phone] Leila Tomlinson MD Primary Care Pro vider Reason for Visit * Reason Comments Med Refill Encounter Details Date Type Department Care Team ([facility] st Contact Info) Description 11/11/2022 Refill [facility] [address] [place], [place] [phone] Pamela Moreno FNP [address] [place] [address] Nonintractable epilepsy without status epilepticus, unspecified epilepsy [...] (HCC) documented in this encounter Care Teams Prorate Clerk Relationship Specialty Start Date End Date Pamela Moreno FNP [address] [place] [address] PCP - General Family Medicine 01/29/22 11/13/22 Leila Tomlinson MD [address] [place] [phone] PCP - General Internal Medicine 11/14/22 documented as of this encounter
== END 2025-04-22 07:48 | disposition home or self-care (01) ==
LOC: HO.XRAY 07:47
PROVIDERS: PCP Student in an Organized Health Care Education/Training Program; Visit Provider Obstetrics & Gynecology
DX: K21.9 Gastro-esophageal reflux disease without esophagitis (principal); D25.9 Leiomyoma of uterus, unspecified
CPT/HCPCS: 74246; 76830; 76856

== ENCOUNTER → 2025-04-22 07:51 | Outpatient (BNV) | payer MEDICAID, SELFPAY | PROVIDERS: PCP Student in an Organized Health Care Education/Training Program; Visit Provider Radiology Diagnostic Radiology | DX: K21.9 Gastro-esophageal reflux disease without esophagitis (principal); D25.9 Leiomyoma of uterus, unspecified | CPT/HCPCS: 74246; 76830; 76856 ==

== ENCOUNTER 2025-04-28 13:11 | Outpatient (AMB) | payer MEDICAID, SELFPAY ==
--- NOTE | 2025-04-28 13:28 | MHC.OFFVIS ---
Intake Visit Reasons: follow up Allergies divalproex sodium Adverse Reaction (Verified 04/28/25 13:31) Unknown Medication List - Last Reconciled 04/28/25 by Lisa Natarajan CNP lamotrigine 100 mg PO DAILY levetiracetam 250 mg orally 1 tablet in the morning and 2 tablets at bedtime; methylcellulose (laxative) (Citrucel) 500 mg PO DAILY omeprazole 20 mg PO DAILY sumatriptan succinate 100 mg PO DAILY PRN HPI Comments Details: 50-year-old woman with migraines and generalized tonic-clonic seizures that started at age 27 who has had a total of about 25 seizures without aura or warning. She has sudden loss of consciousness where she falls and goes into a generalized convulsion for about a minute during which she bites her tongue, but is not incontinent. She is sleepy, confused, and postictal after the seizure. No triggers have been identified. Her last seizure was in 2017. Her seizures were not controlled with Keppra alone and lamotrigine 100 mg daily was added. She has had no further seizures. She has a family history of epilepsy in her maternal aunt and maternal grandmother. She was doing okay. She was taking lamotrigine and levetiracetam. No medication side effects. No seizures. No significant migraines and she has not had to use sumatriptan. She was under some stress lately related to family. Sleep was up and down. [facility] Medical History History of anal dysplasia Hx of seizure disorder Diverticulosis AIN grade III COVID-19 vaccine series completed Anal lesion Constipation Vitamin D deficiency Non-refractory epilepsy Surgical History Tubal ligation status History of surgical removal of lesion Hx of colonoscopy History of lumpectomy of right breast History of appendectomy Hx of cholecystectomy Family History Father Heart muscle disorder caused by another medical condition Social History Household Members: Spouse and Children Housing: House Are you a primary transitions rn care coordinator to a significant other at home: No Do you presently have visiting nurse or other home services: No Alcohol intake: never Patient Tobacco Use Status: Never used Tobacco Current occupational status: unemployed Sexual orientation: Straight/Heterosexual Gender identity: Female Review of Systems Const Denies chills, Denies daytime sleepiness, Reports difficulty sleeping, Denies fatigue, Denies fever(s), Denies frequent falls, Denies headache(s), Denies increased appetite, Denies poor appetite, Denies snoring, Denies weakness, Denies weight gain and Denies weight loss Eyes Denies loss of vision ENT Denies vertigo, Denies dizziness, Denies headache(s) and Denies neck pain Card Denies chest pain at rest, Denies chest pain with activity, Denies syncope, Denies leg edema, Denies palpitations, Denies dyspnea and Denies dyspnea on exertion Resp Denies cough, Denies dyspnea, Denies dyspnea on exertion and Denies snoring GI Denies abdominal pain, Denies constipation, Denies heartburn, Denies diarrhea and Denies nausea Denies urinary frequency, Denies urinary incontinence and Denies urinary urgency Musc Denies abnormal gait, Denies back pain, Denies myalgias, Denies arthralgias, Denies neck pain, Denies numbness and Denies tingling Neuro Denies abnormal gait, Denies vertigo, Denies dizziness, Denies syncope, Denies frequent falls, Denies headache(s), Denies lack of coordination, Denies loss of vision, Denies memory loss, Denies numbness, Denies Other visual disturbances, Denies restless legs, Denies seizure-like activity, Denies tingling, Denies paresthesias, Denies tremor(s) and Denies weakness Psych Reports anxiety, Denies depression, Denies auditory hallucinations, Denies memory loss and Denies visual hallucinations Endo Denies fatigue and Denies palpitations Physical Exam Const Other: General Appearance:? normal, in no acute distress. Heart:? S1, S2 normal, no murmurs. Lungs:? clear anteriorly and posteriorly. Musculoskeletal:? normal. Extremities:? no edema. Psych:? alert, oriented, cognitive function intact, cooperative with exam. Neuro Other: Abnormal Neurological Findings:?none.? Mental Status: alert and oriented X 3. Normal attention, orientation, memory, and affect. Cranial Nerves: Pupils are equal, round, and reactive to light. External ocular muscles are intact. Visual ramey are full, no ptosis. Face is symmetrical, no facial weakness or droop. Facial sensations are normal. Tongue protrudes in midline. Palate elevates symmetrically. Shoulder shrugging is normal Motor Examination: Normal muscle tone, bulk and strength. No atrophy or fasciculations. No drift of the extended upper extremities. DTR 2+. Plantars are flexor. Sensory Exam: Normal light touch, temperature, pinprick, vibration, and joint-position sensations. Rhomberg sign is absent. Coordination: No ataxia. No titubation. Gait Exam: Within normal limits. Cerebellar Signs: [id number] is okay. Extrapyramidal System: No tremor, rigidity with normal facial expressions. No bradykinesia. No bradyphrenia. Normal arm swing and posture. No propulsion or retropulsion. Speech: Normal. Results Reviewed Results Reviewed: 03/28/23 EEG- WNL. Impression: This awake EEG is within normal limits. Labs were normal. Keppra low therapeutic. 05/09/23 Brain MRI: No acute process. No hippocampal pathology. Mild bilateral frontoparietal brain parenchymal volume loss. Assessment & Plan Assessment & Plan (1) Seizure disorder: Code(s): G40.909 - Epilepsy, unspecified, not intractable, without status epilepticus Category: Medical Plan: Continue lamotrigine 100mg 1 tablet daily. Continue levetiracetam 250mg 1 tablet in the morning and 2 tablets at bedtime. Follow up in 6 months or sooner as needed. (2) Migraine: Code(s): G43.909 - Migraine, unspecified, not intractable, without status migrainosus Category: Medical Qualifiers: Migraine type: unspecified Status migrainosus presence: without status migrainosus Intractability: not intractable Qualified Code(s): G43.909 - Migraine, unspecified, not intractable, without status migrainosus Plan: Continue sumatriptan 100mg 1 tablet as needed for migraines. Medications: Changed From lamotrigine 100 mg PO DAILY To lamotrigine 100 mg PO DAILY 90 tabs 1RF 90 days From levetiracetam 250 mg orally 1 tablet in the morning and 2 tablets at bedtime; To levetiracetam 250 mg orally 1 tablet in the morning and 2 tablets at bedtime; 270 tabs 1RF 90 days Coding Level of Care Code Est Pt Level 4 (47894) Diagnoses Seizure disorder G40.909 Migraine without status migrainosus, not intractable, unspecified migraine type G43.909 Migraine type: unspecified Status migrainosus presence: without status migrainosus Intractability: not intractable
--- OUTSIDE RECORDS SUMMARY | 2025-04-28 16:18 | XMS_ITS | Encounter Summary ---
Author Organization [employer] Address [address] [place] [address] Care Team Providers Care Dental Scheduler Name Role Phone Leila Tomlinson MD Primary Care Pro vider Reason for Visit * Reason Comments Med Refill Encounter Details Date Type Department Care Team ([facility] st Contact Info) Description 02/21/2023 Refill [facility] [address] [place], [place] [phone] Leila Tomlinson MD [address] [place] [address] Nonintractable epilepsy without status epilepticus, unspecified epilepsy [...] documented as of this encounter Care Teams Dental Scheduler Relationship Specialty Start Date End Date Leila Tomlinson MD [address] [place] [id number] PCP - General Internal Medicine 11/14/22 documented as of this encounter
--- OUTSIDE RECORDS SUMMARY | 2025-04-28 16:18 | XMS_ITS | Encounter Summary ---
Author Organization [employer] Address [address] [place] [address] [address] [place] [address] Care Team Providers Care Maintenance Representative Name Role Phone Leila Tomlinson MD Primary Care Pro vider Encounter Details Date Type Department Care Team (Latest Contact Info) Description 04/27/2025 Results Follow-Up [facility] [address] [place] [address] [phone] Leila Tomlinson MD [address] [place] [address] BI Mammogram Screening Tomosynthesis Bilateral Social History Tobacco Use Types Packs/Day Years [...] AM EDT documented as of this encounter Miscellaneous Notes * Result Encounter Note - Leila Lopez MD - 04/27/2025 2:39 PM EST Please inform pt of normal mammogram report thanks documented in this encounter Plan of Treatment Not on file documented as of this encounter Visit Diagnoses Not on filedocumented in this encounter Additional Health Concerns Assessment Noted Time PHQ-9 Depression Total Score: 4 04/09/20 24 9:27 AM EST documented as of this encounter Care Teams Maintenance Representative Relationship Specialty Start Date End Date Leila Tomlinson MD [address] [place] [phone] PCP - General Internal Medicine 11/14/22 documented as of this encounter
--- OUTSIDE RECORDS SUMMARY | 2025-04-28 16:18 | XMS_ITS | Encounter Summary ---
Author Organization [employer] Address [address] [place] [id number] Care Team Providers Care Company Controller Name Role Phone Pamela Moreno Primary Care Provider [phone] Leila Tomlinson MD Primary Care Pro vider Reason for Visit * Reason Comments Med Refill Encounter Details Date Type Department Care Team ([facility] st Contact Info) Description 08/27/2022 Refill [facility] [address] [place], [place] [phone] Pamela Moreno FNP [address] [place] [address] Nonintractable epilepsy without status epilepticus, unspecified epilepsy [...] (HCC) documented in this encounter Care Teams Company Controller Relationship Specialty Start Date End Date Pamela Moreno FNP [address] [place] [address] PCP - General Family Medicine 01/29/22 11/13/22 Leila Tomlinson MD [address] [place] [phone] PCP - General Internal Medicine 11/14/22 documented as of this encounter
--- OUTSIDE RECORDS SUMMARY | 2025-04-28 16:18 | XMS_ITS | Encounter Summary ---
Author Organization [employer] Address [address] [place] [id number] Care Team Providers Care Back Roll Lathe Operator Name Role Phone Pamela Moreno Primary Care Provider [phone] Leila Tomlinson MD Primary Care Pro vider Reason for Visit * Reason Comments Med Refill Encounter Details Date Type Department Care Team ([facility] st Contact Info) Description 11/11/2022 Refill [facility] [address] [place], [place] [phone] Pamela Moreno FNP [address] [place] [address] Nonintractable epilepsy without status epilepticus, unspecified epilepsy [...] (HCC) documented in this encounter Care Teams Back Roll Lathe Operator Relationship Specialty Start Date End Date Pamela Moreno FNP [address] [place] [address] PCP - General Family Medicine 01/29/22 11/13/22 Leila Tomlinson MD [address] [place] [phone] PCP - General Internal Medicine 11/14/22 documented as of this encounter
--- OUTSIDE RECORDS SUMMARY | 2025-04-28 16:18 | XMS_ITS | Encounter Summary ---
Author Organization [employer] Address [address] [facility] 7 [place] [address] Care Team Providers Care Department Editor Name Role Phone Leila Tomlinson MD Primary Care Pro vider Encounter Details Date Type Department Care Team ([facility] st Contact Info) Description 05/21/2024 Orders Only [facility] [address] [place] [address] Provider, MD Amie Social History Tobacco Use [...] t he electric, gas, oil or water [employer] threatened to shut off services in your [...] documented as of this encounter Care Teams Department Editor Relationship Specialty Start Date End Date Leila Tomlinson MD [address] [place] [id number] PCP - General Internal Medicine 11/14/22 documented as of this encounter
--- OUTSIDE RECORDS SUMMARY | 2025-04-28 16:18 | XMS_ITS | Clinical Summary ---
Author Organization [employer] Address [address] [place] [address] 7 [place] [address] Care Team Providers Care Regional Education Coordinator Name Role Phone Leila Tomlinson MD Primary [...] Take by mouth. 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 -Anoscopy Feb 2022 without evidence of any residual lesion nor occurrence. 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/2025 Anemia 09/18/2022 02/26/2023 Epilepsy, not refractory (CMS/HCC) 09/08/2015 01/28/2023 Encounters Date Type Department Care Team Description 04/27/2025 Results Follow-Up [address] [address] Leila Tomlinson MD BI Mammogram Screening Tomosynthesis Bilateral 04/19/2025 Orders Only [facility] [address] Leila Tomlinson MD 03/24/[address] [place] [address] Leila Tomlinson MD sunny recall 03/04/2025 Orders [...] Smear 06/05/2026 06/05/2023, 01/31/2021 Mammogram 04/19/2027 04/19/2025, 09/2023, 04/01/2023, Additional history exists Colonoscopy 02/02/2028 [...] Procedure Name Priority Date/Time Associated Diagnosis Comments US PELVIS TRANSVAGINAL Routine 2:15 PM EST FL UPPER GI W AIR W BARIUM SWALLOW Routine 04/22/2025 7:56 AM EST BI MAMMOGRAM SCREENING TOMOSYNTHESIS BILATERAL Routine 04/19/2025 [...] Recently Relevant to Health Maintenance Results * US Pelvis Transvaginal (04/22/2025 2:15 PM EST) Anatomical Region Laterality Modality Pelvis Ultrasound 04/22/2025 2:15 PM EST Narrative 04/22/2025 3:05 PM EST [address] [address] Ultrasound Report Signed Patient: Ria Walsh MR#: [id number] : 1975 Acct:[id number] Age/Sex: 50 / F ADM Date: 04/22/25 Loc: LALO.MIKI Attending Dr: Tu Mendez MD Ordering Physician: Tu Mendez MD Date of Service: 04/22/25 Procedure(s): US pelvic and transvaginal Accession Number(s): [id number] cc: Leila Tomlinson MD; Tu Mendez MD Reason for Exam: D25.9 - Leiomyoma of uterus, unspecified EXAMINATION: US PELVIS CLINICAL INFORMATION: D25.9 - Leiomyoma of uterus, unspecified COMPARISON: Previous exams most recent March 2024 TECHNIQUE: Ultrasound of the pelvis is performed using both transabdominal and transvaginal transducers along with Doppler. Transvaginal imaging is performed due to inadequate visualization transabdominally. FINDINGS: Uterus: The uterus is retroverted and measures 7.7 x 3.6 x 5.3 cm. The double wall endometrial thickness is 2 mm. No endometrial fluid or mass. IUD no longer seen. Multiple hypoechoic uterine lesions suggestive of fibroids. 2.2 x 1.9 x 1.5 cm intramural right fundal/upper uterine body. This measured 2.5 x 2.1 x 1.9 cm and is not appreciably changed. 0.8 x 0.6 x 0.7 cm right upper uterine body intramural fibroid. This is newly appreciated. 1.2 x 0.6 x 1.1 cm posterior submucosal uterine body fibroid. This measured 1.6 x 1.6 x 1.4 cm on prior exam. 1.3 x 1.1 x 0.8 cm intramural fundal fibroid. This measured 1.2 x 1.2 x 1.3 cm on prior exam and not appreciably changed. 8 x 8 x 9 mm myometrial cyst in the fundus. Adnexa: Both ovaries are visualized. There is normal color flow to the adnexa. There is no ovarian torsion. There are prominent left adnexal vessels questionable for pelvic congestion. There is no pelvic ascites or fluid collection. Right ovary measures 2.7 x 1.5 x 1.1 cm. Left ovary measures 2.4 x 1.4 x 2.1 cm. US/US pelvic and transvaginal IMPRESSION: Multiple uterine fibroids, largest measuring 1.9 x 2.2 cm not appreciably changed from most recent March 2024 exam. Normal-appearing endometrium. IUD no longer seen. Normal-appearing ovaries. Prominent left pelvic vessels questionable for pelvic congestion. Electronically signed by: Tanesha Post MD 04/22/2025 03:03 PM EST Dictated By: Tanesha Post MD Signed By: <Electronically signed by Tanesha Post MD in OV> 04/22/25 1503 DD/ 1415 TD/TT: 04/22/25 1427 Employment Instructional Associate: ANNA Procedure Note Donotuseinterpreter, Image - 04/22/[address] [address] Ultrasound Report Signed Patient: Mindi Walsh#: M [id number] : 1975Acct:[id number] Age/Sex: 50 / FADM Date: 04/22/25 Loc: HO.XRAY Attending Dr: Tu Mendez MD Ordering Physician: Tu Mendez MD Date of Service: 04/22/25 Procedure(s): US pelvic and transvaginal Accession Number(s): [id number] cc: Leila Tomlinson MD; Tu Mendez MD Reason for Exam: D25.9 - Leiomyoma of uterus, unspecified EXAMINATION: US PELVIS CLINICAL INFORMATION: D25.9 - Leiomyoma of uterus, unspecified COMPARISON: Previous exams most recent March 2024 TECHNIQUE: Ultrasound of the pelvis is performed using both transabdominal and transvaginal transducers along with Doppler. Transvaginal imaging is performed due to inadequate visualization transabdominally. FINDINGS: Uterus: The uterus is retroverted and measures 7.7 x 3.6 x 5.3 cm. The double wall endometrial thickness is 2 mm. No endometrial fluid or mass. IUD no longer seen. Multiple hypoechoic uterine lesions suggestive of fibroids. 2.2 x 1.9 x 1.5 cm intramural right fundal/upper uterine body. This measured 2.5 x 2.1 x 1.9 cm and is not appreciably changed. 0.8 x 0.6 x 0.7 cm right upper uterine body intramural fibroid. This is newly appreciated. 1.2 x 0.6 x 1.1 cm posterior submucosal uterine body fibroid. This measured 1.6 x 1.6 x 1.4 cm on prior exam. 1.3 x 1.1 x 0.8 cm intramural fundal fibroid. This measured 1.2 x 1.2 x 1.3 cm on prior exam and not appreciably changed. 8 x 8 x 9 mm myometrial cyst in the fundus. Adnexa: Both ovaries are visualized. There is normal color flow to the adnexa. There is no ovarian torsion. There are prominent left adnexal vessels questionable for pelvic congestion. There is no pelvic ascites or fluid collection. Right ovary measures 2.7 x 1.5 x 1.1 cm. Left ovary measures 2.4 x 1.4 x 2.1 cm. US/US pelvic and transvaginal IMPRESSION: Multiple uterine fibroids, largest measuring 1.9 x 2.2 cm not appreciably changed from most recent March 2024 exam. Normal-appearing endometrium. IUD no longer seen. Normal-appearing ovaries. Prominent left pelvic vessels questionable for pelvic congestion. Electronically signed by: Tanesha Post MD 04/22/2025 03:03 PM EST Dictated By: Tanesha Post MD Signed By: <Electronically signed by Tanesha Post MD in OV> 04/22/25 1503 DD/ 1415 TD/TT: 04/22/25 1427 Employment Instructional Associate: ANNA Authoraudrey Provider Result Type Result Stat us [facility] External Provider IMG US PROCEDURES Final Result * FL Upper GI w/air w/Barium Swallow (04/22/2025 7:56 AM EST) Anatomical Region Laterality Modality Body Radiographic Gely ging 04/22/2025 7:56 AM EST Narrative 04/22/2025 8:41 AM EST [address] [address] Fluoroscopy Report Signed Patient: Ria Walsh MR#: M [id number] : 1975 Acct:[id number] Age/Sex: 50 / F ADM Date: 04/22/25 Loc: HO.XRAY Attending Dr: Tu Mendez MD Ordering Physician: Mela Bean PLATE AND FRAME FILTER OPERATOR- Date of Service: 04/22/25 Procedure(s): FL upper GI w air w Ba Swallow Accession Number(s): [id number] cc: Mela Bean; Leila Tomlinson MD Reason for Exam: K21.9 - Gastro-esophageal reflux disease without esophagitis EXAMINATION: XR UPPER GI SERIES WITH barium swallow CLINICAL INFORMATION: Gastroesophageal reflux disease without esophagitis COMPARISON: None available. TECHNIQUE: Barium swallow and upper GI was performed using thin and thick barium and effervescent granules. A barium tablet was also administered. FINDINGS: The swallowing mechanism is normal. No aspiration or penetration. Esophageal motility is normal. No hernia, mass, stricture or evidence of esophagitis. There is moderate gastroesophageal reflux. Barium tablet passed freely into the stomach. The stomach and duodenum are normal appearing. No fold thickening, mass, ulceration or stricture. FLUOROSCOPY TIME: 1 minute 31 seconds DOSE AREA PRODUCT: 827 uGy-m2 (microgray-meter squared) FL/FL upper GI w air w Ba Swallow IMPRESSION: Moderate gastroesophageal reflux. Otherwise unremarkable exam. Electronically signed by: Tanesha Post MD 04/22/2025 08:39 AM EST Dictated By: Tanesha Post MD Signed By: <Electronically signed by Tanesha Post MD in OV> 04/22/25 0839 DD/ 0756 TD/TT: 04/22/25 0814 Employment Instructional Associate: ANNA Procedure Note Donotuseinterpreter, Image - 04/22/2025 [place] [address] Fluoroscopy Report Signed Patient: Mindi Walsh#: M [id number] : 1975Acct:[id number] Age/Sex: 50 / FADM Date: 04/22/25 Loc: JESUS Attending Dr: Tu Mendez MD Ordering Physician: Mela Bean Date of Service: 04/22/25 Procedure(s): FL upper GI w air w Ba Swallow Accession Number(s): [id number] cc: Mela Bean; Leila Tomlinson MD Reason for Exam: K21.9 - Gastro-esophageal reflux disease withoutesophagitis EXAMINATION: XR UPPER GI SERIES WITH barium swallow CLINICAL INFORMATION: Gastroesophageal reflux disease without esophagitis COMPARISON: None available. TECHNIQUE: Barium swallow and upper GI was performed using thin and thick barium and effervescent granules. A barium tablet was also administered. FINDINGS: The swallowing mechanism is normal. No aspiration or penetration. Esophageal motility is normal. No hernia, mass, stricture or evidence of esophagitis. There is moderate gastroesophageal reflux. Barium tablet passed freely into the stomach. The stomach and duodenum are normal appearing. No fold thickening, mass, ulceration or stricture. FLUOROSCOPY TIME: 1 minute 31 seconds DOSE AREA PRODUCT: 827 uGy-m2 (microgray-meter squared) FL/FL upper GI w air w Ba Swallow IMPRESSION: Moderate gastroesophageal reflux. Otherwise unremarkable exam. Electronically signed by: Tanesha Post MD 04/22/2025 08:39 AM EST Dictated By: Tanesha Post MD Signed By: <Electronically signed by Tanesha Post MD in OV> 04/22/25 0839 DD/ 0756 TD/TT: 04/22/25 0814 Employment Instructional Associate: ANNA [facility] External Provider IMG FLU OROSCOPY PROCEDURES Final Result * BI Mammogram Screening Tomosynthesis Bilateral (04/19/2025 7:50 AM EST) Anatomical Region Laterality Modality Breast Bilateral Mammography 04/19/2025 7:50 AM EST Narrative 04/19/2025 7:40 PM EST [facility] [address] [place] [address] Mammography Report Signed Patient: Ria Walsh MR#: M [id number] : 1975 Acct:[id number] Age/Sex: 49 / F ADM Date: 04/19/25 Loc: HO.MAMMO Attending Dr: Leila Lopez MD Ordering Physician: Leila Tomlinson MD Re sults: 2Benign Date of Service: 04/19/25 Follow Up: 1 Year From Orig inal Mammogram Procedure(s): MM tomosynthesis screening BI Accession Number(s): [id number] cc: Leila Tomlinson MD Reason For Exam: [...] by: Jesus Dinero MD 04/19/2025 07:38 PM [facility] Dictated By: Jesus Dinero MD Signed By: <Electronically signed by Jesus Dinero MD in OV> 04/19/25 1938 DD/ 0750 TD/TT: 04/19/25 0805 Employment Instructional Associate: Procedure Note Donotuseinterpreter, Image - [facility]/19/[facility] [address] [place] [address] Mammography Report Signed Patient: Mindi Walsh#: M [id number] : 1975Acct:[id number] Age/Sex: 49 / FADM Date: 04/19/25 Loc: HO.MAMMO Attending Dr: Leila Lopez MD Ordering Physician: Leila Tomlinson sults: 2Benign Date of Service: 04/19/25Follow Up: 1 Year From Orig inal Mammogram Procedure(s): MM tomosynthesis screening BI Accession Number(s): [id number] cc: Leila Tomlinson MD Reason For Exam: [...] 04/19/25 1938 DD/ 0750 TD/TT: 04/19/25 0805 Employment Instructional Associate: us Leila Lopez MD IMG BI PROCEDURES Final Result * VITAMIN D 25-OH (D2 AND D3) (03/04/2025 8:35 AM EDT) Vitamin D, 25-OH, D2 <4 ng/mL [facility] Comment:This test was develo ped and its analytical performancecharacteristics have been determined by [employer] [place], [place]. It hasnot been cleared or approved by the U.S. Food and DrugAdministration. This assay has been validated pursuantto the CLIA regulations and is used for clinicalpurposes.THIS TEST WAS PERFORMED AT:[employer] [employer] [facility] [id number] [place] [id number] WHITING MD,PHD Vitamin D, 25-OH, D3 35 ng/mL [facility] Comment:This test was develo ped and its analytical performancecharacteristics have been determined by [employer] [place] [place]. It hasnot been cleared or approved by the U.S. Food and DrugAdministration. This assay has been validated pursuantto the CLIA regulations and is used for clinicalpurposes. Vitamin D, 25-OH, Total 35 30 - 100 ng/mL [facility] Comment:Vitamin D, 25-Hydrox y reports [...] = 30 ng/mL.For additional information, please refer tohttp://education.[employer]/faq/XQK908(This link is being provided for informational/educational purposes only.) 03/04/2025 8:35 AM EDT 03/04/2025 8:35 AM EDT us Generic External Data Provider LAB BLOOD ORDERAB LES Final Result Performing Organization Address City/[facility]/ZIP Co de Phone Number [facility] [address] [place] [phone] * Vitamin B12 (Cobalamin) and Folate Panel, Serum (03/04/2025 8:35 AM EDT) Vitamin B12 474 200 - 900 pg/mL [facility] Comment:NORMAL 200-900 PG/ML INDETERMINATE 160-199 PG/ML DEFICIENT < 160 PG/ML Folate 9.1 > or = 4.0 ng/mL [facility] Comment:Reference Values:> o r = 4.0 ng/mL< 4.0 ng/mL suggests folate deficiency Methotrexate, aminopterin and folinic acid(leucovorin) are chemotherapeutic agents whose molecularstructures are similar to folate; therefore, the Architectfolate assay cannot be used for patients using these drugs. 03/04/2025 8:35 AM EDT 03/04/2025 8:35 AM EDT us Generic External Data Provider LAB BLOOD ORDERAB LES Final Result Performing Organization Address [facility] Co de Phone Number [facility] [address] [place] [phone] * TSH with Reflex to Free T4 (03/04/2025 8:35 AM EDT) Pathologist [facility] TSH reflex Free T4 3.34 0.32 - 4.0 uIU/mL [facility] 03/04/2025 8:35 AM EDT 03/04/2025 8:35 AM EDT Generic External Data Provider LAB BLOOD ORDERAB LES Final Result Performing Organization Address City/[facility]/ZIP Co de Phone Number [facility] [address] [place] [phone] * Tissue Transglutaminase Antibody, IgA (03/04/2025 8:35 AM EDT) Pathologist [facility] Transglutaminase IgA <1.0 U/mL [facility] Comment:Value Interpretation ----- <15.0 Antibody not detected> or = 15.0 Antibody detectedTHIS TEST WAS PERFORMED AT:[employer] [place] [phone] HERNANDEZ MD 03/04/2025 8:35 AM EDT 03/04/2025 8:35 AM EDT us Generic External Data Provider LAB BLOOD ORDERAB LES Final Result Performing Organization Address [facility]/ZIP Co de Phone Number [facility] [address] [place] [phone] * Lipase (03/04/2025 8:35 AM EDT) Pathologist [facility] Lipase 34 8 - 78 U/L [facility] 03/04/2025 8:35 AM EDT 03/04/2025 8:35 AM EDT us Generic External Data Provider LAB BLOOD ORDERAB LES Final Result Performing Organization Address [facility] de Phone Number [facility] [address] [place] [phone] * Hepatitis C Antibody with Reflex to HCV, RNA, Quantitative, Real-Time PCR (04/09/2024 9:40 AM EST) Pathologist [facility] Hepatitis C Antibody Nonreactive Nonreactive [facility] Comment:Antibodies to HCV no t detected; does not exclude early acuteHCV infection. Blood Venous blood specimen / Unknown 04/09/2024 9:40 AM EST 04/09/2024 11:10 AM EST us Leila Lopez MD LAB BLOOD ORDERAB LES Final Result Performing Organization Address [facility] Co de Phone Number [facility] [address] [place] [phone] * HIV-1/2 Antigen and Antibodies, Fourth Generation, with Reflexes (04/09/2024 9:40 AM EST) HIV AB/AG Nonreactive Nonreactive [facility] Comment:HIV-1 p24 Ag and/or HIV-1/HIV-2 Ab not detected.A test result that is nonreactive does not exclude thepossibility of exposure to or infection with HIV-1 and/orHIV-2. Nonreactive results in this assay for individualswith prior exposure to HIV-1 and/or HIV-2 may be due toantigen and antibody levels that are below the limit ofdetection of this assay.[employer] HIV Ag/Ab Combo assay result andsupplemental assay results should be interpreted inconjunction with the patient's clinical presentation,history and other laboratory results. If the results areinconsistent with clinical evidence, additional testing issuggested to confirm the result. Blood Venous blood specimen / Unknown 04/09/2024 9:40 AM EST 04/09/2024 11:10 AM EST us Leila Lopez MD LAB BLOOD ORDERAB LES Final Result [facility] [address] [place] [phone] * Pap Smear (06/05/2023 7:57 AM EST) 06/05/2023 7:57 AM EST 06/05/2023 11:15 AM EST Narrative [facility] - 06/10/2023 11:07 AM EST ----- ------- Name: Ria Walsh Age/Sex: 48/F : 1975 Unit#: [id number] Attend Dr: Tu Mendez MD Re06/05/23 Status: [facility] REF Location: [facility] Disch: ----- ------- SPEC : [id number] RECD: 06/05/23-111 STATUS: NEGRITO BARAHONA NUM: [id number] TEJAL: 06/05/23-[address]: Tu Mendez MD ENTERED: 06/05/23-1146 [...] 59, 66, 68) HPV testing performed by [employer], [place], [place]. See reference laboratory portion of the EMR for entire report. Clinical Information LMP: 05/27/23 Previous PAP test: 2019, Unknown findings Other history: Abnormal uterine and vaginal bleeding Material Received ThinPrep-Cervical Copies To: Leila Tomlinson MD [address] [place] [address] [phone] Tu Mendez MD [address] [place], [place] [address]Mikaela [address] [address] ----- ------- Signed (signature on file) WYATT Caceres (ASCP) 06/10/23 1107 ----- ------- END OF REPORT us Generic External Data Provider LAB CYTOLOGY CELIA MCCANN Final Result [facility] [address] [place] [phone] * Hm Colonoscopy (02/01/2023 3:28 PM EDT) Historical Provider HEALTH MAINTENANCE Final Result * THINPREP PAP AND HPV mRNA E6/E7 REFLEX HPV 16,18/45 (01/31/2021 3:46 PM EDT) Clinical Information: None given [facility] COMMENT SEE COMMENT [facility]AT[facility] ON [...] along with historic and current clinical information. Blower Room Attendant: SEE COMMENT [facility] Comment: YP CT(ASCP) CT screening location: [place] [address] HPV nRNA E6/E7 Not Detected Not Detected [facility] Comment: Methodology: Ergonomics Consultant-Mediated Amplification This assay detects E6/E7 viral messenger RNA (mRNA) from 14 high-risk HPV types (16,18,31,33,35,39,45,51,52,56,58,59,66,68). The analytical performance characteristics of this assay have been determined by [facility] [facility]. The modifications have not been cleared or approved by the FDA. This assay has been validated pursuant to the CLIA regulations and is used for clinical purposes. For additional information, please refer to http://education.[employer]/faq/UDC933t9 (This link if provided for information/ educational [...] NP HISTORICAL/NON ORDERABLE LABS F inal Result [facility] [address] from Last 3 Months or Most Recently Relevant to Health Maintenance Insurance [facility] C3 Care Teams Regional Education Coordinator Relationship Specialty Start Date End Date Leila Tomlinson MD [address] [place] [phone] PCP - General Internal Medicine 11/14/22
--- OUTSIDE RECORDS SUMMARY | 2025-04-28 16:18 | XMS_ITS | Encounter Summary ---
Author Organization [employer] Address [address] [place] [address] [place] [address] Care Team Providers Care Software Systems Architect Name Role Phone Leila Tomlinson MD Primary Care Pro vider Reason for Visit * Reason Comments Med Refill Encounter Details Date Type Department Care Team ([facility] st Contact Info) Description 10/15/[address] [facility] MEDICINE [address] [place], [place] [phone] Leila Tomlinson MD [address] [place] [address] Social History Tobacco Use Types Packs/Day Years [...] documented as of this encounter Care Teams Software Systems Architect Relationship Specialty Start Date End Date Leila Tomlinson MD [address] [place] [phone] PCP - General Internal Medicine 11/14/22 documented as of this encounter
== END 2025-04-28 13:36 | disposition home or self-care (01) ==
LOC: HO.HSM 13:11
PROVIDERS: PCP Student in an Organized Health Care Education/Training Program; Visit Provider Registered Nurse
DX: G40.909 Epilepsy, unspecified, not intractable, without status epilepticus (principal); G43.909 Migraine, unspecified, not intractable, without status migrainosus
CPT/HCPCS: 99214

== ENCOUNTER → 2025-04-28 13:11 | Outpatient (BNVA) | payer MEDICAID, SELFPAY | PROVIDERS: PCP Student in an Organized Health Care Education/Training Program; Visit Provider Registered Nurse | DX: G40.909 Epilepsy, unspecified, not intractable, without status epilepticus (principal); G43.909 Migraine, unspecified, not intractable, without status migrainosus; Z79.899 Other long term (current) drug therapy | CPT/HCPCS: 99212 ==

== ENCOUNTER 2025-05-05 07:19 | Outpatient (AMB) | payer MEDICAID, SELFPAY ==
--- OUTSIDE RECORDS SUMMARY | 2025-05-05 07:23 | XMS_ITS | Encounter Summary ---
Author Organization [email or web address] Address [address] [facility] 7 [place] [address] Care Team Providers Care Shell Maker Lockstitch Name Role Phone Leila Tomlinson MD Primary Care Pro vider Encounter Details Date Type Department Care Team ([facility] st Contact Info) Description 05/21/2024 Orders Only [facility] MEDICINE [address] [place] [address] Provider, MD Amie Social History Tobacco Use [...] t he electric, gas, oil or water [employer] threatened to shut off services in your [...] documented as of this encounter Care Teams Shell Maker Lockstitch Relationship Specialty Start Date End Date Leila Tomlinson MD [address] [place] [phone] PCP - General Internal Medicine 11/14/22 documented as of this encounter
--- OUTSIDE RECORDS SUMMARY | 2025-05-05 07:23 | XMS_ITS | Clinical Summary ---
Author Organization [employer] Address [address] [place] [address] 7 [place] [address] Care Team Providers Care Nursing Assistants Teacher Name Role Phone Leila Tomlinson MD Primary [...] Take by mouth. Ac tive sodium chloride ([place]) 0.65 % nasal spray Administer 1 spray [...] (anxiety) PLAN: 1. Follow up with [facility]: 2. Patient goal is overcome anxiety 3. Behavioral Recommendations a. Patient will utilize techniques provided b. 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 Smith -Excisional polypoid anal [...] Department Care Team Description 04/27/2025 Results Follow-Up [address] [address] Leila Tomlinson MD BI Mammogram Screening Tomosynthesis Bilateral 04/19/2025 Orders Only [facility] [place] [address] Leila Tomlinson MD 03/24/[address] [place] [address] Leila Tomlinson MD sunny recall 03/04/2025 Orders [...] PM EST Narrative 04/22/2025 3:05 PM EST [address] [address] Ultrasound Report Signed Patient: Ria Walsh MR#: [id number] : 1975 Acct:[id number] Age/Sex: 50 / F ADM Date: 04/22/25 Loc: LALO.MIKI Attending Dr: Tu Mendez MD Ordering Physician: Tu Mendez MD Date of Service: 04/22/25 Procedure(s): US pelvic and transvaginal Accession Number(s): [id number] cc: Leila Tomlinson MD; Tu Mendez MD [...] 04/22/25 1503 DD/ 1415 TD/TT: 04/22/25 1427 Building Components Designer: ANNA Procedure Note Donotuseinterpreter, Image - 04/22/[address] [address] Ultrasound Report Signed Patient: Mindi Walsh#: M [id number] : 1975Acct:[id number] Age/Sex: 50 / FADM Date: 04/22/25 Loc: HO.XRAY Attending Dr: Tu Mendez MD Ordering Physician: Tu Mendez MD Date of Service: 04/22/25 Procedure(s): US pelvic and transvaginal Accession Number(s): [id number] cc: Leila Tomlinson MD; Tu Mendez MD [...] 04/22/25 1503 DD/ 1415 TD/TT: 04/22/25 1427 Building Components Designer: ANNA Authoraudrey Provider Result Type Result Stat us [facility] External Provider IMG US PROCEDURES Final Result * FL Upper GI w/air w/Barium Swallow (04/22/2025 7:56 AM EST) Anatomical Region Laterality Modality Body Radiographic Gely ging 04/22/2025 7:56 AM EST Narrative 04/22/2025 8:41 AM EST [address] [address] Fluoroscopy Report Signed Patient: Ria Walsh MR#: [id number] : 1975 Acct:[id number] Age/Sex: 50 / F ADM Date: 04/22/25 Loc: HO.XRAY Attending Dr: Tu Mendez MD Ordering Physician: Mela Bean GRAPHICS PROGRAMMER- Date of Service: 04/22/25 Procedure(s): FL upper GI w air w Ba Swallow Accession Number(s): [id number] cc: Mela Bean; Leila Tomlinson MD Reason [...] 04/22/25 0839 DD/ 0756 TD/TT: 04/22/25 0814 Building Components Designer: ANNA Procedure Note Donotuseinterpreter, Image - 04/22/2025 [place] [address] Fluoroscopy Report Signed Patient: Mindi Walsh#: M [id number] : 1975Acct:[id number] Age/Sex: 50 / FADM Date: 04/22/25 Loc: JESUS Attending Dr: Tu Mendez MD Ordering Physician: Mela Bean Date of Service: 04/22/25 Procedure(s): FL upper GI w air w Ba Swallow Accession Number(s): [id number] cc: Mela Bean; Leila Tomlinson MD Reason [...] 04/22/25 0839 DD/ 0756 TD/TT: 04/22/25 0814 Building Components Designer: ANNA [facility] External Provider IMG FLU OROSCOPY PROCEDURES Final Result * BI Mammogram Screening Tomosynthesis Bilateral (04/19/2025 7:50 AM EST) Anatomical Region Laterality Modality Breast Bilateral Mammography 04/19/2025 7:50 AM EST Narrative 04/19/2025 7:40 PM EST [facility] [address] [place] [address] Mammography Report Signed Patient: Ria Walsh MR#: [id number] : 1975 Acct:[id number] Age/Sex: 49 / F ADM Date: 04/19/25 Loc: HO.MAMMO Attending Dr: Leila Lopez MD Ordering Physician: Leila Tomlinson MD Re sults: 2Benign Date of Service: 04/19/25 Follow Up: 1 Year From Orig inal Mammogram Procedure(s): MM tomosynthesis screening BI Accession Number(s): [id number] cc: Leila Tomlinson MD Reason For Exam: [...] by: Jesus Dinero MD 04/19/2025 07:38 PM [facility] Dictated By: Jesus Dinero MD Signed By: <Electronically signed by Jesus Dinero MD in OV> 04/19/25 1938 DD/ 0750 TD/TT: 04/19/25 0805 Building Components Designer: Procedure Note Donotuseinterpreter, Image - [facility] [address] [place] [address] Mammography Report Signed Patient: Mindi Walsh#: M [id number] : 1975Acct:[id number] Age/Sex: 49 / FADM Date: 04/19/25 Loc: HO.MAMMO Attending Dr: Leila Lopez MD Ordering Physician: Leila Tomlinson sults: 2Benign Date of Service: 04/19/25Follow Up: 1 Year From Orig inal Mammogram Procedure(s): MM tomosynthesis screening BI Accession Number(s): [id number] cc: Leila Tomlinson MD Reason For Exam: [...] 04/19/25 1938 DD/ 0750 TD/TT: 04/19/25 0805 Building Components Designer: us Leila Lopez MD IMG BI PROCEDURES Final Result * VITAMIN D 25-OH (D2 AND D3) (03/04/2025 8:35 AM EDT) Vitamin D, 25-OH, D2 <4 ng/mL [facility] Comment:This test was develo ped and its analytical performancecharacteristics have been determined by [employer] [place], [place]. It hasnot been cleared or approved by the U.S. Food and DrugAdministration. This assay has been validated pursuantto the CLIA regulations and is used for clinicalpurposes.THIS TEST WAS PERFORMED AT:[employer] [id number] [place] [address]OOKTQIQMISTY WHITING MD,PHD Vitamin D, 25-OH, D3 35 ng/mL [facility] Comment:This test was develo ped and its analytical performancecharacteristics have been determined by [employer] [place] It hasnot been cleared or approved by the U.S. Food and DrugAdministration. This assay has been validated pursuantto the CLIA regulations and is used for clinicalpurposes. Vitamin D, 25-OH, Total 35 30 - 100 ng/mL [facility] Comment:Vitamin D, 25-Hydrox y reports [...] = 30 ng/mL.For additional information, please refer tohttp://education.Primitive Makeup/faq/OEQ275(This link is being provided for informational/educational purposes only.) 03/04/2025 8:35 AM EDT 03/04/2025 8:35 AM EDT us Generic External Data Provider LAB BLOOD ORDERAB LES Final Result Performing Organization Address City/[facility]/ZIP Co de Phone Number [facility] [address] [place] [phone] * Vitamin B12 (Cobalamin) and Folate Panel, Serum (03/04/2025 8:35 AM EDT) Vitamin B12 474 200 - 900 pg/mL [facility] Comment:NORMAL 200-900 PG/ML INDETERMINATE 160-199 PG/ML DEFICIENT < 160 PG/ML Folate 9.1 > or = 4.0 ng/mL [facility] Comment:Reference Values:> o r = 4.0 ng/mL< 4.0 ng/mL suggests folate deficiency Methotrexate, aminopterin and folinic acid(leucovorin) are chemotherapeutic agents whose molecularstructures are similar to folate; therefore, the Architectfolate assay cannot be used for patients using these drugs. 03/04/2025 8:35 AM EDT 03/04/2025 8:35 AM EDT us Generic External Data Provider LAB BLOOD ORDERAB LES Final Result Performing Organization Address [facility] Co de Phone Number [facility] [address] [place] [phone] * TSH with Reflex to Free T4 (03/04/2025 8:35 AM EDT) Pathologist [facility] TSH reflex Free T4 3.34 0.32 - 4.0 uIU/mL [facility] 03/04/2025 8:35 AM EDT 03/04/2025 8:35 AM EDT Generic External Data Provider LAB BLOOD ORDERAB LES Final Result Performing Organization Address City/[facility]/ZIP Co de Phone Number [facility] [address] [place] [phone] * Tissue Transglutaminase Antibody, IgA (03/04/2025 8:35 AM EDT) Pathologist [facility] Transglutaminase IgA <1.0 U/mL [facility] Comment:Value Interpretation ----- <15.0 Antibody not detected> or = 15.0 Antibody detectedTHIS TEST WAS PERFORMED AT:[employer] [place] [phone] HERNANDEZ MD 03/04/2025 8:35 AM EDT 03/04/2025 8:35 AM EDT us Generic External Data Provider LAB BLOOD ORDERAB LES Final Result Performing Organization Address [facility]/ZIP Co de Phone Number [facility] [address] [place] [phone] * Lipase (03/04/2025 8:35 AM EDT) Pathologist [facility] Lipase 34 8 - 78 U/L [facility] 03/04/2025 8:35 AM EDT 03/04/2025 8:35 AM EDT us Generic External Data Provider LAB BLOOD ORDERAB LES Final Result Performing Organization Address [facility] de Phone Number [facility] [address] [place] [phone] * Hepatitis C Antibody with Reflex to HCV, RNA, Quantitative, Real-Time PCR (04/09/2024 9:40 AM EST) Pathologist [facility] Hepatitis C Antibody Nonreactive Nonreactive [facility] Comment:Antibodies to HCV no t detected; does not exclude early acuteHCV infection. Blood Venous blood specimen / Unknown 04/09/2024 9:40 AM EST 04/09/2024 11:10 AM EST us Leila Lopez MD LAB BLOOD ORDERAB LES Final Result Performing Organization Address [facility] Co de Phone Number [facility] [address] [place] [phone] * HIV-1/2 Antigen and Antibodies, Fourth Generation, with Reflexes (04/09/2024 9:40 AM EST) HIV AB/AG Nonreactive Nonreactive [facility] Comment:HIV-1 p24 Ag and/or HIV-1/HIV-2 Ab not detected.A test result that is nonreactive does not exclude thepossibility of exposure to or infection with HIV-1 and/orHIV-2. Nonreactive results in this assay for individualswith prior exposure to HIV-1 and/or HIV-2 may be due toantigen and antibody levels that are below the limit ofdetection of this assay.The [employer] HIV Ag/Ab Combo assay result andsupplemental assay results should be interpreted inconjunction with the patient's clinical presentation,history and other laboratory results. If the results areinconsistent with clinical evidence, additional testing issuggested to confirm the result. Blood Venous blood specimen / Unknown 04/09/2024 9:40 AM EST 04/09/2024 11:10 AM EST us Leila Lopez MD LAB BLOOD ORDERAB LES Final Result [facility] [address] [place] [phone] * Pap Smear (06/05/2023 7:57 AM EST) 06/05/2023 7:57 AM EST 06/05/2023 11:15 AM EST Narrative [facility] - 06/10/2023 11:07 AM EST ----- ------- Name: Ria Walsh Age/Sex: 48/F : 1975 Unit#: [id number] Attend Dr: Tu Mendez MD Re06/05/23 Status: [facility] REF Location: [facility] Disch: ----- ------- SPEC : [id number] RECD: 06/05/23-111 STATUS: NEGRITO BARAHONA NUM: [id number] TEJAL: 06/05/23-[address]: Tu Mendez MD [...] 59, 66, 68) HPV testing performed by [facility], [place], [place]. See reference laboratory portion of the EMR for entire report. Clinical Information LMP: 05/27/23 Previous PAP test: 2019, Unknown findings Other history: Abnormal uterine and vaginal bleeding Material Received ThinPrep-Cervical Copies To: Leila Tomlinson MD [address] [place] [address] [phone] Tu Mendez MD [address] [place], [place] [address]Mikaela [address] [address] ----- ------- Signed (signature on file) WYATT Caceres (ASCP) 06/10/23 1107 ----- ------- END OF REPORT us Generic External Data Provider LAB CYTOLOGY CELIA MCCANN Final Result [facility] [address] [place] [phone] * Hm Colonoscopy (02/01/2023 3:28 PM EDT) Historical Provider HEALTH MAINTENANCE Final Result * THINPREP PAP AND HPV mRNA E6/E7 REFLEX HPV 16,18/45 (01/31/2021 3:46 PM EDT) Clinical Information: None given [facility] COMMENT SEE COMMENT FOUNDATI ON [...] along with historic and current clinical information. Territory Sales Executive: SEE COMMENT [facility] Comment: YP CT(ASCP) CT screening location: [place] [address] HPV nRNA E6/E7 Not Detected Not Detected [facility] Comment: Methodology: Probation Agent-Mediated Amplification This assay detects E6/E7 viral messenger RNA (mRNA) from 14 high-risk HPV types (16,18,31,33,35,39,45,51,52,56,58,59,66,68). The analytical performance characteristics of this assay have been determined by [facility]. The modifications have not been cleared or approved by the FDA. This assay has been validated pursuant to the CLIA regulations and is used for clinical purposes. For additional information, please refer to http://education.Gynzy/faq/ZBN808f3 (This link if provided for information/ educational [...] NP HISTORICAL/NON ORDERABLE LABS F inal Result [facility] [address] from Last 3 Months or Most Recently Relevant to Health Maintenance Insurance [facility] C3 Care Teams Nursing Assistants Teacher Relationship Specialty Start Date End Date Leila Tomlinson MD [address] [place] [phone] PCP - General Internal Medicine 11/14/22
--- OUTSIDE RECORDS SUMMARY | 2025-05-05 07:23 | XMS_ITS | Encounter Summary ---
Author Organization [employer] Address [address] [place] [address] [place] [address] Care Team Providers Care Interpretative Dancer Name Role Phone Leila Tomlinson MD Primary Care Pro vider Reason for Visit * Reason Comments Med Refill Encounter Details Date Type Department Care Team ([facility] st Contact Info) Description 10/15/2023 Refill [facility] MEDICINE [address] [place], [place] [phone] Leila Tomlinson MD [address] [place] [address] Social History Tobacco Use Types Packs/Day Years [...] documented as of this encounter Care Teams Interpretative Dancer Relationship Specialty Start Date End Date Leila Tomlinson MD [address] [place] [phone] PCP - General Internal Medicine 11/14/22 documented as of this encounter
--- OUTSIDE RECORDS SUMMARY | 2025-05-05 07:23 | XMS_ITS | Encounter Summary ---
Author Organization [employer] Address [address] [place] [address] Care Team Providers Care Wood Stainer Name Role Phone Pamela Moreno Primary Care Provider [phone] Leila Tomlinson MD Primary Care Pro vider Reason for Visit * Reason Comments Med Refill Encounter Details Date Type Department Care Team ([facility] st Contact Info) Description 08/27/2022 Refill [facility] MEDICINE [address] [place], [place] [phone] Paemla Moreno FNP [address] [place] [address] Nonintractable epilepsy without status epilepticus, unspecified epilepsy [...] (HCC) documented in this encounter Care Teams Wood Stainer Relationship Specialty Start Date End Date Pamela Moreno FNP [address] [place] [address] PCP - General Family Medicine 01/29/22 11/13/22 Leila Tomlinson MD [address] [place] [address] PCP - General Internal Medicine 11/14/22 documented as of this encounter
--- OUTSIDE RECORDS SUMMARY | 2025-05-05 07:23 | XMS_ITS | Encounter Summary ---
Author Organization [employer] Address [address] [place] [address] Care Team Providers Care Ground Crew Linesman Name Role Phone Pamela Moreno Primary Care Provider [phone] Leila Tomlinson MD Primary Care Pro vider Reason for Visit * Reason Comments Med Refill Encounter Details Date Type Department Care Team ([facility] st Contact Info) Description 11/11/2022 Refill [facility] MEDICINE [address] [place], [place] [phone] Pamela Moreno FNP [address] [place] [address] Nonintractable epilepsy without status epilepticus, unspecified epilepsy [...] (HCC) documented in this encounter Care Teams Ground Crew Linesman Relationship Specialty Start Date End Date Pamela Moreno FNP [address] [place] [address] PCP - General Family Medicine 01/29/22 11/13/22 Leila Tomlinson MD [address] [place] [phone] PCP - General Internal Medicine 11/14/22 documented as of this encounter
--- OUTSIDE RECORDS SUMMARY | 2025-05-05 07:23 | XMS_ITS | Clinical Summary ---
Author Organization [facility] Address [address] [place] [address] Care Team Providers Care Hydraulic Rockbreaker Operator Name Role Phone Unavailable Primary Care Provider [...] Smear 1996 Depression Screening 06/03/2024 COVID-19 Vaccine (1 - 2024-2 6 season) 2025 Influenza Vaccine (#1) 2025 Pneumococcal Vaccine: 50+ Ye ars (1 of 1 - PCV) 2025 Zoster Vaccines (1 of 2) 2025 RSV Immunization Adult Patie nts (1 [...]
--- OUTSIDE RECORDS SUMMARY | 2025-05-05 07:24 | XMS_ITS | Encounter Summary ---
Author Organization [employer] Address [address] [place] [address] Care Team Providers Care Desulphuring Operator Name Role Phone Leila Tomlinson MD Primary Care Pro vider Reason for Visit * Reason Comments Med Refill Encounter Details Date Type Department Care Team ([facility] st Contact Info) Description 02/21/2023 Refill [facility] MED[facility] [address] [place], [place] [phone] Leila Tomlinson MD [address] [place] [address] Nonintractable epilepsy without status epilepticus, unspecified epilepsy [...] documented as of this encounter Care Teams Desulphuring Operator Relationship Specialty Start Date End Date Leila Tomlinson MD [address] [place] [phone] PCP - General Internal Medicine 11/14/22 documented as of this encounter
--- NOTE | 2025-05-05 07:26 | MHC.OFFVIS ---
Vital Signs 05/05/25 07:27 Height 5 ft 7 in Weight 154 lb BMI 24.1 BP 124/76 Intake Visit Reasons: ultrasound results Mucking Machine Operator Required: Yes Mucking Machine Operator Language: Window Shade Cutter [employer] Mounter Services: Mucking Machine Operator Present (in person) Mucking Machine Operator Name: Michaela GARZA Information Interpreted: non-clinical & clinical Accompanied by: Self / Same As Patient Allergies divalproex sodium Adverse Reaction (Verified 05/05/25 07:30) Unknown Post menopausal: Yes HPI Comments Details: Presenting for follow-up ultrasound regarding uterine myoma seen on previous pelvic ultrasound. The patient is doing well with no complaints no abnormal uterine bleeding, pelvic pressure or pain. Pelvic ultrasound done recently showed the following: Uterus: The uterus is retroverted and measures 7.7 x 3.6 x 5.3 cm. The double wall endometrial thickness is 2 mm. No endometrial fluid or mass. IUD no longer seen. Multiple hypoechoic uterine lesions suggestive of fibroids. 2.2 x 1.9 x 1.5 cm intramural right fundal/upper uterine body. This measured 2.5 x 2.1 x 1.9 cm and is not appreciably changed. 0.8 x 0.6 x 0.7 cm right upper uterine body intramural fibroid. This is newly appreciated. 1.2 x 0.6 x 1.1 cm posterior submucosal uterine body fibroid. This measured 1.6 x 1.6 x 1.4 cm on prior exam. 1.3 x 1.1 x 0.8 cm intramural fundal fibroid. This measured 1.2 x 1.2 x 1.3 cm on prior exam and not appreciably changed. 8 x 8 x 9 mm myometrial cyst in the fundus. Adnexa: Both ovaries are visualized. There is normal color flow to the adnexa. There is no ovarian torsion. There are prominent left adnexal vessels questionable for pelvic congestion. There is no pelvic ascites or fluid collection. Right ovary measures 2.7 x 1.5 x 1.1 cm. Left ovary measures 2.4 x 1.4 x 2.1 cm. US/US pelvic and transvaginal IMPRESSION: Multiple uterine fibroids, largest measuring 1.9 x 2.2 cm not appreciably changed from most recent March 2024 exam. Normal-appearing endometrium. IUD no longer seen. [facility] Medical History History of anal dysplasia Hx of seizure disorder Diverticulosis AIN grade III COVID-19 vaccine series completed Anal lesion Constipation Vitamin D deficiency Non-refractory epilepsy Surgical History Tubal ligation status History of surgical removal of lesion Hx of colonoscopy History of lumpectomy of right breast History of appendectomy Hx of cholecystectomy Family History Father Heart muscle disorder caused by another medical condition Social History Household Members: Spouse and Children Housing: House Are you a primary children's zoo caretaker to a significant other at home: No Do you presently have visiting nurse or other home services: No Alcohol intake: never Patient Tobacco Use Status: Never used Tobacco Current occupational status: unemployed Sexual orientation: Straight/Heterosexual Gender identity: Female Review of Systems Const All systems reviewed & are unremarkable except as noted in HPI and below Reports as per HPI and Reports no additional complaints GI Reports no additional complaints Reports no additional complaints Physical Exam Vital Signs: Last Vital Signs BP 124/76 05/05/25 07:27 BMI result Body Mass Index 24.1 Assessment & Plan Assessment & Plan (1) Uterine myoma: Code(s): D25.9 - Leiomyoma of uterus, unspecified Category: Medical Plan: Discussed with the patient the findings on pelvic ultrasound & the risk of myosarcoma; in addition reviewed with the patient that malignancy and pre malignancy cannot be ruled out without hysterectomy for pathological evaluation ; furthermore, explained to the patient the limitation of pelvic ultrasound and endometrial biopsy in the setting. Discussed with the patient the options of treatment including expectant management versus hysterectomy; the pros and cons, risks benefits of each approach were discussed with the patient including the fact that in cases of myosarcoma, surgical treatment can lead to early diagnosis and positively affects the prognosis; after further discussion, the patient decided to proceed with expectant management. Will repeat pelvic ultrasound periodically. Instructions given to patient to call in case any of the following occurs: pressure symptoms, abnormal uterine bleeding, pelvic pain; and to schedule a 12 months pelvic ultrasound (order placed) and a follow-up appointment . All questions answered, the patient verbalized understanding and agreed with the plan . Orders: Orders US pelvic and transvaginal 1 Year D25.9 - Leiomyoma of uterus, unspecified Coding Level of Care Code Est Pt Level 3 (98762) Diagnoses Uterine myoma D25.9
[2025-05-05 07:27] VITALS: BP 124/76; BMI 24.1
== END 2025-05-05 08:14 | disposition home or self-care (01) ==
LOC: HO.HWS 07:20
PROVIDERS: PCP Student in an Organized Health Care Education/Training Program; Visit Provider Obstetrics & Gynecology
DX: D25.9 Leiomyoma of uterus, unspecified (principal)
CPT/HCPCS: 99213

== ENCOUNTER → 2025-05-05 07:19 | Outpatient (BNVA) | payer MEDICAID, SELFPAY | PROVIDERS: PCP Student in an Organized Health Care Education/Training Program; Visit Provider Obstetrics & Gynecology | DX: D25.9 Leiomyoma of uterus, unspecified (principal); Z98.51 Tubal ligation status | CPT/HCPCS: 99212 ==

== ENCOUNTER 2025-05-07 09:14 | Outpatient (AMB) | payer MEDICAID, SELFPAY ==
--- NOTE | 2025-05-07 09:28 | MHC.OFFVIS ---
Vital Signs 05/07/25 09:31 Height 5 ft 7 in Weight 154 lb BMI 24.1 BP 140/68 H Blood Pressure Location Rt brachial Position Sitting Pulse 78 Pulse Source Pulse Oximeter Pulse Oximetry (%) 97 Oxygen Delivery Method Room Air Intake Visit Reasons: 30m 3m Intake Note: Est pt for CIC + GERD mgmt. CC; C/O post prandial GERD exacerbation intermittently. Pt also reports having lower abd pain B/L prior to BMs. Pt states that she is OK most other times, and confirms she is taking her current Rx. Activity Coordinator Required: No Accompanied by: Self / Same As Patient Allergies divalproex sodium Adverse Reaction (Verified 05/07/25 09:36) Unknown HPI HPI 30m 3m: Details: LAST VISIT: Postprandial epigastric pain GERD (gastroesophageal reflux disease) Postprandial abdominal bloating Postprandial diarrhea Plan Patient will be sent for upper GI with better swallow to evaluate reflux, hernia. Will check transglutaminase, thyroid study, lipase, B12, folate and vitamin-D levels. Patient will start taking fiber supplements to help her bulk stools. Increase fluid intake and activity to promote better bowel motility. Discussed with patient low FODMAP diet. Patient will start taking omeprazole daily. Avoid dietary triggers and late night snacking. Staying upright for minimum 3 hours after meals discussed with patient. Patient will follow-up in the office in 3 months, sooner on as needed basis. She is agreeable to this plan and verbalizes understanding of instructions. She was given the opportunity to ask questions and all questions answered. ? Thank you for allowing me to participate in her care Orders Transglutaminase IgA Today R10.9 FL upper GI w air w Ba Swallow Today K21.9 TSH reflex Free T4 Today K59.00 Lipase Today R10.9 Vitamin B12 and Folate Today R19.7 Vitamin D 25-OH (D2 and D3) Today E55.9 New methylcellulose (laxative) (Citrucel) take it with full glass of water 500 mg PO DAILY 90 tabs 2RF K59.00 omeprazole 20 mg PO DAILY 30 caps 3RF K21.9 TODAY'S VISIT Patient is here today for follow-up and to discuss upper GI series with barium swallow. Patient started taking omeprazole and reports that her reflux is better, however she still has phlegm and mucus coming out. Upper GI series show moderate reflux. Patient denies any nausea or vomiting. Denies any dyspepsia, dysphagia or odynophagia. Reports that she is moving her bowels without any issues. Denies any other GI concerning symptoms. Patient is taking fiber on a regular basis and reports that is doing well. [facility] Medical History (Updated 05/07/25 @ 10:04 by Mela Bean [facility]) GERD (gastroesophageal reflux disease) History of anal dysplasia Hx of seizure disorder Diverticulosis AIN grade III COVID-19 vaccine series completed Anal lesion Constipation Vitamin D deficiency Non-refractory epilepsy Surgical History Tubal ligation status History of surgical removal of lesion Hx of colonoscopy History of lumpectomy of right breast History of appendectomy Hx of cholecystectomy Family History Father Heart muscle disorder caused by another medical condition Social History Household Members: Spouse and Children Housing: House Are you a primary career guidance counselor to a significant other at home: No Do you presently have visiting nurse or other home services: No Alcohol intake: never Patient Tobacco Use Status: Never used Tobacco Current occupational status: unemployed Sexual orientation: Straight/Heterosexual Gender identity: Female Review of Systems Const Denies weight gain and Denies weight loss ENT Reports no additional complaints, Denies dysphagia and Denies odynophagia Card Reports no additional complaints Resp Reports no additional complaints GI Denies abdominal pain, Denies belching, Denies melena, Denies bloating, Denies change in bowel habits, Denies dysphagia, Denies excessive flatus, Denies dyspepsia, Reports heartburn, Denies diarrhea, Denies loose stools, Denies nausea, Denies odynophagia and Denies vomiting Reports no additional complaints Musc Reports no additional complaints Neuro Reports no additional complaints Psych Reports no additional complaints Endo Reports no additional complaints Physical Exam Vital Signs: Last Vital Signs Pulse 78 05/07/25 09:31 BP 140/68 H 05/07/25 09:31 Pulse Ox 97 05/07/25 09:31 Oxygen Delivery Method Room Air 05/07/25 09:31 BMI result Body Mass Index 24.1 Const General: healthy appearing, no acute distress and well developed Nutritional Appearance: well nourished Orientation/consciousness: patient oriented x3 Resp Effort & Inspection: normal respiratory effort, able to speak in complete sentences, no tracheal deviation and symmetric chest movement Auscultation: clear to auscultation bilaterally Cardio Rate: regular rate GI Inspection: Yes normal to inspection and No distended Palpation (GI): Soft to palpation, not firm, nontender and No hepatosplenomegaly present Auscultation: normal bowel sounds General: Yes no CVA tenderness Back/Spine/Pelvis Back: no CVA tenderness Skin General skin exam: elasticity normal, turgor normal and dry skin Neuro General: patient oriented x3 Psych Appearance: grossly normal Mental Status: mental status grossly normal Results Reviewed Results Reviewed: UPPER GI WITH BARIUM SWALLOW FINDINGS: The swallowing mechanism is normal. No aspiration or penetration. Esophageal motility is normal. No hernia, mass, stricture or evidence of esophagitis. There is moderate gastroesophageal reflux. Barium tablet passed freely into the stomach. The stomach and duodenum are normal appearing. No fold thickening, mass, ulceration or stricture. FLUOROSCOPY TIME: 1 minute 31 seconds DOSE AREA PRODUCT: 827 uGy-m2 (microgray-meter squared) FL/FL upper GI w air w Ba Swallow IMPRESSION: Moderate gastroesophageal reflux. Otherwise unremarkable exam. Assessment & Plan Assessment & Plan (1) Anal lesion: Code(s): K62.9 - Disease of anus and rectum, unspecified Category: Medical (2) Diverticulosis: Code(s): K57.90 - Diverticulosis of intestine, part unspecified, without perforation or abscess without bleeding Category: Medical (3) History of anal dysplasia: Code(s): Z87.19 - Personal history of other diseases of the digestive system Category: Medical (4) GERD (gastroesophageal reflux disease): Code(s): K21.9 - Gastro-esophageal reflux disease without esophagitis Category: Medical Qualifiers: Esophagitis presence: esophagitis presence not specified Qualified Code(s): K21.9 - Gastro-esophageal reflux disease without esophagitis Plan Will change PPI to pantoprazole 40 mg daily. Patient will continue avoiding dietary triggers. Significant reflux seen on upper GI series. Patient was encouraged to avoid eating late at night. Staying upright for minimum 3 hours after meals discussed with patient. Continue Citrucel daily. Increase fiber and fluid intake to promote bowel motility. Patient wants to follow-up with rectal surgeon. She has appointment in September nothing in the computer. Patient has that appointment card with her. She will follow-up in our office in 4 months. She was encouraged to call us if she will have any GI concerning symptoms. She is agreeable to this plan and verbalizes understanding of instructions. She was given the opportunity to ask questions and all questions answered Medications: New pantoprazole take one tablet half an hour before breakfast 40 mg PO DAILY 30 tabs 3RF K21.9 - Gastro-esophageal reflux disease without esophagitis Discontinued omeprazole Discontinued Reason: Doctor's Order 20 mg PO DAILY 30 caps 3RF K21.9 - Gastro-esophageal reflux disease without esophagitis Coding Level of Care Code Est Pt Level 4 (33256) Complex visit Add On G2211 Diagnoses Anal lesion K62.9 Diverticulosis K57.90 History of anal dysplasia Z87.19 Gastroesophageal reflux disease, unspecified whether esophagitis present K21.9 Esophagitis presence: esophagitis presence not specified Time Spent (min) 40 Comment 25 minutes spent with patient and additional 15 minutes spent reviewing her records
[2025-05-07 09:31] VITALS: BP 140/68; PULSE 78; O2SAT 97; BMI 24.1
--- OUTSIDE RECORDS SUMMARY | 2025-05-07 09:55 | XMS_ITS | Encounter Summary ---
Author Organization [employer] Address [address] [place] [address] [place] [address] Care Team Providers Care Religious Leader Name Role Phone Leila Tomlinson MD Primary Care Pro vider Reason for Visit * Reason Comments Med Refill Encounter Details Date Type Department Care Team ([facility] st Contact Info) Description 10/15/2023 Refill [facility] [address] [place], [place] [phone] Leila Tomlinson MD [address] [place] [address] Social History Tobacco Use Types Packs/Day Years [...] documented as of this encounter Care Teams Religious Leader Relationship Specialty Start Date End Date Leila Tomlinson MD [address] [place] [phone] PCP - General Internal Medicine 11/14/22 documented as of this encounter
--- OUTSIDE RECORDS SUMMARY | 2025-05-07 09:55 | XMS_ITS | Encounter Summary ---
Author Organization [employer] Address [address] [place] [address] Care Team Providers Care Elevator Dispatcher Name Role Phone Pamela Moreno Primary Care Provider [phone] Leila Tomlinson MD Primary Care Pro vider Reason for Visit * Reason Comments Med Refill Encounter Details Date Type Department Care Team ([facility] st Contact Info) Description 11/11/2022 Refill [facility] [address] [place], [place] [phone] Pamela Moreno FNP [address] [place] [address] Nonintractable epilepsy without status epilepticus, unspecified epilepsy [...] (HCC) documented in this encounter Care Teams Elevator Dispatcher Relationship Specialty Start Date End Date Pamela Moreno FNP [address] [place] [address] PCP - General Family Medicine 01/29/22 11/13/22 Leila Tomlinson MD [address] [place] [phone] PCP - General Internal Medicine 11/14/22 documented as of this encounter
--- OUTSIDE RECORDS SUMMARY | 2025-05-07 09:55 | XMS_ITS | Clinical Summary ---
Author Organization [employer] Address [address] [place] [address] 7 [place] [address] Care Team Providers Care Mold Hoister Name Role Phone Leila Tomlinson MD Primary [...] Take by mouth. Ac tive sodium chloride (Russell) 0.65 % nasal spray Administer 1 spray [...] health (anxiety) PLAN: 1. Follow up with [facility]: 2. Patient goal is overcome anxiety 3. Behavioral Recommendations a. Patient will utilize techniques provided b. Patient may reach out to speak with IB, if needed Health care maintenance 01/28/2023 Seizure disorder (CMS/HCC) 09/18/2022 Anal intraepithelial neoplasia III 08/21/2021 Overview (09/18/2022): -[facility] with [facility] [place] - Dr. Smith -Excisional polypoid anal [...] Department Care Team Description 04/27/2025 Results Follow-Up [address] [address] Leila Tomlinson MD BI Mammogram Screening Tomosynthesis Bilateral 04/19/2025 Orders Only [facility] [place] [address] Leila Tomlinson MD 03/24/[address] [place] [address] Leila Tomlinson MD sunny recall 03/04/2025 Orders [...] PM EST Narrative 04/22/2025 3:05 PM EST [address] [address] Ultrasound Report Signed Patient: Ria Walsh MR#: [id number] : 1975 Acct:[id number] Age/Sex: 50 / F ADM Date: 04/22/25 Loc: LALO.MIKI Attending Dr: Tu Mendez MD Ordering Physician: Tu Mendez MD Date of Service: 04/22/25 Procedure(s): US pelvic and transvaginal Accession Number(s): [id number] cc: Leila Tomlinson MD; Tu Mendez MD [...] 04/22/25 1503 DD/ 1415 TD/TT: 04/22/25 1427 Shelter Monitor: ANNA Procedure Note Donotuseinterpreter, Image - 04/22/[address] [address] Ultrasound Report Signed Patient: Mindi Walsh#: M [id number] : 1975Acct:[id number] Age/Sex: 50 / FADM Date: 04/22/25 Loc: HO.XRAY Attending Dr: Tu Mendez MD Ordering Physician: Tu Mendez MD Date of Service: 04/22/25 Procedure(s): US pelvic and transvaginal Accession Number(s): [id number] cc: Leila Tomlinson MD; Tu Mendez MD [...] 04/22/25 1503 DD/ 1415 TD/TT: 04/22/25 1427 Shelter Monitor: ANNA Authoraudrey Provider Result Type Result Stat us [facility] External Provider IMG US PROCEDURES Final Result * FL Upper GI w/air w/Barium Swallow (04/22/2025 7:56 AM EST) Anatomical Region Laterality Modality Body Radiographic Gely ging 04/22/2025 7:56 AM EST Narrative 04/22/2025 8:41 AM EST [address] [address] Fluoroscopy Report Signed Patient: Ria Walsh MR#: [id number] : 1975 Acct:[id number] Age/Sex: 50 / F ADM Date: 04/22/25 Loc: HO.XRAY Attending Dr: Tu Mendez MD Ordering Physician: Mela Bean RANCH HELPER- Date of Service: 04/22/25 Procedure(s): FL upper GI w air w Ba Swallow Accession Number(s): [id number] cc: Mela Bean; Leila Tomlinson MD Reason [...] 04/22/25 0839 DD/ 0756 TD/TT: 04/22/25 0814 Shelter Monitor: ANNA Procedure Note Donotuseinterpreter, Image - 04/22/2025 [place] [address] Fluoroscopy Report Signed Patient: Mindi Walsh#: M [id number] : 1975Acct:[id number] Age/Sex: 50 / FADM Date: 04/22/25 Loc: JESUS Attending Dr: Tu Mendez MD Ordering Physician: Mela Bean Date of Service: 04/22/25 Procedure(s): FL upper GI w air w Ba Swallow Accession Number(s): [id number] cc: Mela Bean; Leila Tomlinson MD Reason [...] 04/22/25 0839 DD/ 0756 TD/TT: 04/22/25 0814 Shelter Monitor: ANNA [facility] External Provider IMG FLU OROSCOPY PROCEDURES Final Result * BI Mammogram Screening Tomosynthesis Bilateral (04/19/2025 7:50 AM EST) Anatomical Region Laterality Modality Breast Bilateral Mammography 04/19/2025 7:50 AM EST Narrative 04/19/2025 7:40 PM EST [facility] [address] [place] [address] Mammography Report Signed Patient: Ria Walsh MR#: [id number] : 1975 Acct:[id number] Age/Sex: 49 / F ADM Date: 04/19/25 Loc: HO.MAMMO Attending Dr: Leila Lopez MD Ordering Physician: Leila Tomlinson MD Re sults: 2Benign Date of Service: 04/19/25 Follow Up: 1 Year From Orig inal Mammogram Procedure(s): MM tomosynthesis screening BI Accession Number(s): [id number] cc: Leila Tomlinson MD Reason For Exam: [...] by: Jesus Dinero MD 04/19/2025 07:38 PM [facility] Dictated By: Jesus Dinero MD Signed By: <Electronically signed by Jesus Dinero MD in OV> 04/19/25 1938 DD/ 0750 TD/TT: 04/19/25 0805 Shelter Monitor: Procedure Note Donotuseinterpreter, Image - [facility] [address] [place] [address] Mammography Report Signed Patient: Mindi Walsh#: M [id number] : 1975Acct:[id number] Age/Sex: 49 / FADM Date: 04/19/25 Loc: HO.MAMMO Attending Dr: Leila Lopez MD Ordering Physician: Leila Tomlinson sults: 2Benign Date of Service: 04/19/25Follow Up: 1 Year From Orig inal Mammogram Procedure(s): MM tomosynthesis screening BI Accession Number(s): [id number] cc: Leila Tomlinson MD Reason For Exam: [...] 04/19/25 1938 DD/ 0750 TD/TT: 04/19/25 0805 Shelter Monitor: us Leila Lopez MD IMG BI PROCEDURES Final Result * VITAMIN D 25-OH (D2 AND D3) (03/04/2025 8:35 AM EDT) Vitamin D, 25-OH, D2 <4 ng/mL [facility] Comment:This test was develo ped and its analytical performancecharacteristics have been determined by [employer] [place], [place]. It hasnot been cleared or approved by the U.S. Food and DrugAdministration. This assay has been validated pursuantto the CLIA regulations and is used for clinicalpurposes.THIS TEST WAS PERFORMED AT:[employer] [id number] [place] [address]UCWOTZUMISTY WHITING MD,PHD Vitamin D, 25-OH, D3 35 ng/mL [facility] Comment:This test was develo ped and its analytical performancecharacteristics have been determined by [employer], [place]. It hasnot been cleared or approved by the U.S. Food and DrugAdministration. This assay has been validated pursuantto the CLIA regulations and is used for clinicalpurposes. Vitamin D, 25-OH, Total 35 30 - 100 ng/mL [facility] Comment:Vitamin D, 25-Hydrox y reports [...] = 30 ng/mL.For additional information, please refer tohttp://education.[employer]/faq/XOM297(This link is being provided for informational/educational purposes only.) 03/04/2025 8:35 AM EDT 03/04/2025 8:35 AM EDT us Generic External Data Provider LAB BLOOD ORDERAB LES Final Result Performing Organization Address City/[facility]/ZIP Co de Phone Number [facility] [address] [place] [phone] * Vitamin B12 (Cobalamin) and Folate Panel, Serum (03/04/2025 8:35 AM EDT) Vitamin B12 474 200 - 900 pg/mL [facility] Comment:NORMAL 200-900 PG/ML INDETERMINATE 160-199 PG/ML DEFICIENT < 160 PG/ML Folate 9.1 > or = 4.0 ng/mL [facility] Comment:Reference Values:> o r = 4.0 ng/mL< 4.0 ng/mL suggests folate deficiency Methotrexate, aminopterin and folinic acid(leucovorin) are chemotherapeutic agents whose molecularstructures are similar to folate; therefore, the Architectfolate assay cannot be used for patients using these drugs. 03/04/2025 8:35 AM EDT 03/04/2025 8:35 AM EDT us Generic External Data Provider LAB BLOOD ORDERAB LES Final Result Performing Organization Address [facility] Co de Phone Number [facility] [address] [place] [phone] * TSH with Reflex to Free T4 (03/04/2025 8:35 AM EDT) Pathologist [facility] TSH reflex Free T4 3.34 0.32 - 4.0 uIU/mL [facility] 03/04/2025 8:35 AM EDT 03/04/2025 8:35 AM EDT Generic External Data Provider LAB BLOOD ORDERAB LES Final Result Performing Organization Address City/[facility]/ZIP Co de Phone Number [facility] [address] [place] [phone] * Tissue Transglutaminase Antibody, IgA (03/04/2025 8:35 AM EDT) Pathologist [facility] Transglutaminase IgA <1.0 U/mL [facility] Comment:Value Interpretatio n----- <15.0 Antibody not detected> or = 15.0 Antibody detectedTHIS TEST WAS PERFORMED AT:[facility] [place] [phone] HERNANDEZ MD 03/04/2025 8:35 AM EDT 03/04/2025 8:35 AM EDT us Generic External Data Provider LAB BLOOD ORDERAB LES Final Result Performing Organization Address [facility] Co de Phone Number [facility] [address] [place] [phone] * Lipase (03/04/2025 8:35 AM EDT) Pathologist [facility] Lipase 34 8 - 78 U/L [facility] 03/04/2025 8:35 AM EDT 03/04/2025 8:35 AM EDT [facility] External Data Provider LAB BLOOD ORDERAB LES Final Result Performing Organization Address [facility] Phone Number [facility] [address] [place] [phone] * Hepatitis C Antibody with Reflex to HCV, RNA, Quantitative, Real-Time PCR (04/09/2024 9:40 AM EST) Pathologist [facility] Hepatitis C Antibody Nonreactive Nonreactive [facility] Comment:Antibodies to HCV no t detected; does not exclude early acuteHCV infection. Blood Venous blood specimen / Unknown 04/09/2024 9:40 AM EST 04/09/2024 11:10 AM EST us Leila Lopez MD LAB BLOOD ORDERAB LES Final Result Performing Organization Address [facility] Co de Phone Number [facility] [address] [place] [phone] * HIV-1/2 Antigen and Antibodies, Fourth Generation, with Reflexes (04/09/2024 9:40 AM EST) HIV AB/AG Nonreactive Nonreactive [facility] Comment:HIV-1 p24 Ag and/or HIV-1/HIV-2 Ab not detected.A test result that is nonreactive does not exclude thepossibility of exposure to or infection with HIV-1 and/orHIV-2. Nonreactive results in this assay for individualswith prior exposure to HIV-1 and/or HIV-2 may be due toantigen and antibody levels that are below the limit ofdetection of this assay.[employer] HIV Ag/Ab Combo assay result andsupplemental assay results should be interpreted inconjunction with the patient's clinical presentation,history and other laboratory results. If the results areinconsistent with clinical evidence, additional testing issuggested to confirm the result. Blood Venous blood specimen / Unknown 04/09/2024 9:40 AM EST 04/09/2024 11:10 AM EST us Leila Lopez MD LAB BLOOD ORDERAB LES Final Result [facility] [address] [place] [phone] * Pap Smear (06/05/2023 7:57 AM EST) 06/05/2023 7:57 AM EST 06/05/2023 11:15 AM EST Narrative [facility] - 06/10/2023 11:07 AM EST ----- ------- Name: Ria Walsh Age/Sex: 48/F [facility] 1975 [id number] [id number] Attend Dr: Tu Mendez MD Re06/05/23 Status: [facility] REF Location: [facility] Disch: ----- ------- SPEC : [id number] RECD: 06/05/23-1115 STATUS: NEGRITO BARAHONA NUM: [id number] TEJAL: 06/05/23-0757 [facility] DR: Tu Mendez MD ENTERED: 06/05/23-1146 SP [...] 59, 66, 68) HPV testing performed by [facility], [place], [place]. See reference laboratory portion of the EMR for entire report. Clinical Information LMP: 05/27/23 Previous PAP test: 2019, Unknown findings Other history: Abnormal uterine and vaginal bleeding Material Received ThinPrep-Cervical Copies To: Leila Tomlinson MD [address] [place] [phone] Tu Mendez MD [address] [place], [place] [address]Mikaela [address] [address] ----- ------- Signed (signature on file) WYATT Caceres (ASCP) 06/10/23 1107 ----- ------- END OF REPORT us Generic External Data Provider LAB CYTOLOGY CELIA MCCANN Final Result [facility] [address] [place] [phone] * Hm Colonoscopy (02/01/2023 3:28 PM EDT) Historical Provider HEALTH MAINTENANCE Final Result * THINPREP PAP AND HPV mRNA E6/E7 REFLEX HPV 16,18/45 (01/31/2021 3:46 PM EDT) Clinical Information: None given [facility] COMMENT SEE COMMENT [facility] ON [...] along with historic and current clinical information. Paving Plant Operator: SEE COMMENT [facility] Comment: YP CT(ASCP) CT screening location: [place] [address] HPV nRNA E6/E7 Not Detected Not Detected [facility] Comment: Methodology: Psychologist-Mediated Amplification This assay detects E6/E7 viral messenger RNA (mRNA) from 14 high-risk HPV types (16,18,31,33,35,39,45,51,52,56,58,59,66,68). The analytical performance characteristics of this assay have been determined by [facility]. The modifications have not been cleared or approved by the FDA. This assay has been validated pursuant to the CLIA regulations and is used for clinical purposes. For additional information, please refer to http://education.[employer]/faq/SVS817f7 (This link if provided for information/ educational [...] NP HISTORICAL/NON ORDERABLE LABS F inal Result [email or web address] [address] from Last 3 Months or Most Recently Relevant to Health Maintenance [place] [address] [place] [address] C3 Care Teams Mold Hoister Relationship Specialty Start Date End Date Leila Tomlinson MD [address] [place] [phone] PCP - General Internal Medicine 11/14/22
--- OUTSIDE RECORDS SUMMARY | 2025-05-07 09:55 | XMS_ITS | Clinical Summary ---
Author Organization [facility] Address [address] [place] [address] Care Team Providers Care Baller Tender Name Role Phone Unavailable Primary Care Provider [...]
--- OUTSIDE RECORDS SUMMARY | 2025-05-07 09:55 | XMS_ITS | Encounter Summary ---
Author Organization [employer] Address [address] [facility] 7 [place] [address] Care Team Providers Care Museum Host/Hostess Name Role Phone Leila Tomlinson MD Primary Care Pro vider Encounter Details Date Type Department Care Team ([facility] st Contact Info) Description 05/21/2024 Orders Only [facility] MEDICINE [address] [place] [address] Provider, MD Amie Social History Tobacco Use [...] t he electric, gas, oil or water [employer] threatened to shut off services in your [...] documented as of this encounter Care Teams Museum Host/Hostess Relationship Specialty Start Date End Date Leila Tomlinson MD [address] [place] [id number] PCP - General Internal Medicine 11/14/22 documented as of this encounter
--- OUTSIDE RECORDS SUMMARY | 2025-05-07 09:55 | XMS_ITS | Encounter Summary ---
Author Organization [employer] Address [address] [place] [id number] Care Team Providers Care Coffee Blender Name Role Phone Pamela Moreno Primary Care Provider [phone] Leila Tomlinson MD Primary Care Pro vider Reason for Visit * Reason Comments Med Refill Encounter Details Date Type Department Care Team ([facility] st Contact Info) Description 08/27/2022 Refill [facility] MED[facility]INE [address] [place], [place] [phone] Pamela Moreno FNP [address] [place] [address] Nonintractable epilepsy without status epilepticus, unspecified epilepsy [...] (HCC) documented in this encounter Care Teams Coffee Blender Relationship Specialty Start Date End Date Pamela Moreno FNP [address] [place] [address] PCP - General Family Medicine 01/29/22 11/13/22 Leila Tomlinson MD [address] [place] [phone] PCP - General Internal Medicine 11/14/22 documented as of this encounter
--- OUTSIDE RECORDS SUMMARY | 2025-05-07 09:56 | XMS_ITS | Encounter Summary ---
Author Organization [employer] Address [address] [place] [address] Care Team Providers Care Tool Repairer Bench Name Role Phone Leila Tomlinson MD Primary Care Pro vider Reason for Visit * Reason Comments Med Refill Encounter Details Date Type Department Care Team ([facility] st Contact Info) Description 02/21/2023 Refill [facility] MEDICINE [address] [place], [place] [phone] Leila Tomlinson MD [address] [place] [address] Nonintractable epilepsy without status epilepticus, unspecified epilepsy [...] documented as of this encounter Care Teams Tool Repairer Bench Relationship Specialty Start Date End Date Leila Tomlinson MD [address] [place] [id number] PCP - General Internal Medicine 11/14/22 documented as of this encounter
== END 2025-05-07 10:01 | disposition home or self-care (01) ==
LOC: HO.HGI 09:14
PROVIDERS: PCP Student in an Organized Health Care Education/Training Program; Visit Provider Nurse Practitioner Family
DX: K62.9 Disease of anus and rectum, unspecified (principal); K57.90 Diverticulosis of intestine, part unspecified, without perforation or abscess without bleeding; Z87.19 Personal history of other diseases of the digestive system; K21.9 Gastro-esophageal reflux disease without esophagitis
CPT/HCPCS: 99214

== ENCOUNTER → 2025-05-07 09:14 | Outpatient (BNVA) | payer MEDICAID, SELFPAY | PROVIDERS: PCP Student in an Organized Health Care Education/Training Program; Visit Provider Nurse Practitioner Family | DX: K21.9 Gastro-esophageal reflux disease without esophagitis (principal); K57.90 Diverticulosis of intestine, part unspecified, without perforation or abscess without bleeding; K62.9 Disease of anus and rectum, unspecified; Z87.19 Personal history of other diseases of the digestive system | CPT/HCPCS: 99212 ==